=== PATIENT | female | born 1965 | race Caucasian/White ===

== ENCOUNTER 2019-06-24 13:17 | Outpatient (CLI) | payer OTHER, SELFPAY ==
[2019-06-24 14:58] LABS: Eosinophils Absolute Auto 0.1 K/mm3 (0-0.3); Eosinophils Percent Auto 2.4 % (0-4.4); Hematocrit 35.4 % (37.0-47.0); Hemoglobin 11.8 g/dL (12.0-15.0); Immature Granulocyte Absolute 0.02 K/mm3 (0.00-0.031); Immature Granulocyte Percent A 0.5 % (0-0.5); Lymphocytes Absolute Auto 1.31 K/mm3 (0.9-3.2); Lymphocytes Percent Auto 31.4 % (18.3-44.2); Mean Corpuscular HGB Conc 33.3 g/dl (32-36); Mean Corpuscular Hemoglobin 34.4 pg (26-34); Mean Corpuscular Volume 103.2 fl (80-100); Mean Platelet Volume 8.7 fl (7.4-10.4); Monocytes Absolute Auto 0.5 K/mm3 (0.1-0.6); Monocytes Percent Auto 10.8 % (2.6-8.5); Neutrophils Absolute Auto 2.3 K/mm3 (1.3-6.7); Neutrophils Percent Auto 53.9 % (45.5-73.1); Platelet Count Result 257 k/mm3 (150-375); Red Blood Count 3.43 M/mm3 (4.2-5.4); Red Cell Distribution Width 12.1 % (11.5-14.5); White Blood Count 4.2 K/mm3 (4.5-10.0)
[2019-06-24 15:11] LABS: Alanine Aminotransferase 17 U/L (4-35); Albumin Level 4.6 g/dL (3.5-5.1); Alkaline Phosphatase 49 U/L (38-126); Aspartate Amino Transferase 28 U/L (14-36); Bilirubin,Total 0.6 mg/dL (0.2-1.3); Blood Urea Nitrogen 10 mg/dL (7-17); Calcium 9.2 mg/dL (8.4-10.2); Carbon Dioxide 29 mmol/L (22-30); Chloride 96 mmol/L (98-107); Estimated Glomerular Filt Rate > 60; Glucose 83 mg/dL (65-105); Potassium 3.9 mmol/L (3.4-5.0); Sodium 135 mmol/L (137-145)
== END 2019-06-24 13:18 | disposition home or self-care (01) ==
DX: M32.9 Systemic lupus erythematosus, unspecified (principal); Z79.899 Other long term (current) drug therapy
CPT/HCPCS: 36415; 80053; 85025

== ENCOUNTER 2019-06-30 15:38 | Outpatient (CLI) | payer OTHER, SELFPAY ==
--- NOTE | ~2019-06-30 | MR_ITS ---
EXAMINATION: MR knee LT wo con DATE: 06/30/2019 16:42 INDICATION: Recently worsening chronic left knee pain and locking. TECHNIQUE: Magnetic resonance imaging (MRI) of the left knee was performed without intravenous contra st. Sequences included coronal PD-weighted FSE, coronal PD-weighted FS FSE, sagittal T2-weighted FSE , sagittal PD-weighted FS FSE and axial PD weighted fat saturated FSE. COMPARISON: None. FINDINGS: Medial compartment: Medial extrusion of the medial meniscal body. Mild increased intrasubstance signal at the junction of the body and posterior horn of the medial meniscus which does not contact the articular consistent w ith mucoid degeneration. No discrete meniscal tear identified. Partial-thickness cartilage loss with scattered mild chondral surface irregularity along the medial tibial plateau and anterior to central weightbearing medial femoral condyle. Small amount of subarticular edema along the anterior aspect of the articular surface of the intercondylar eminence. Small to moderate size marginal osteophytes are present. Lateral compartment: Lateral meniscus is normal. Partial-thickness cartilage loss with relatively smooth chondral surface along the lateral side of the posterior weightbearing lateral femoral condyle. Small marginal osteoph ytes are present. Patellofemoral compartment: Extensive full-thickness cartilage loss with remodeling and irregularity to the articular cortices al juliette with underlying subarticular edema and cystic change involving both the patella and trochlea, lat eral greater than medial. Marginal osteophytes, large along the medial trochlea. Ligaments and tendons: Anterior and posterior cruciate ligaments are normal. The medial collateral ligament and fibular jeanne ateral ligament complex are normal. The extensor mechanism is normal. The visualized medial and later al hamstring tendons as well as the iliotibial band are normal. Fluid: Small to moderate-sized knee joint effusion with scattered synovitis. There are several scattered lo ose osteochondral bodies the largest located at the cephalad aspect of the suprapatellar pouch which is only incompletely visualized but measures at least 1 cm. Additional smaller loose osteochondral debby dies are seen along the inferolateral margin of the patella, at the recesses posterior to the interco ndylar notch and posterior to the metaphysis near the insertion of the medial head of the gastrocnemi us. Osseous/other: No fracture or abnormal marrow replacing process. IMPRESSION: 1. 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 2. Medial extrusion and mild mucoid degeneration of the medial meniscus without discrete tear. Reviewed, dictated and finalized at location A. [employer] IMPRESSION: 1. 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 2. Medial extrusion and mild mucoid degeneration of the medial meniscus without discrete tear.
== END 2019-06-30 15:39 | disposition home or self-care (01) ==
PROVIDERS: Visit Provider Orthopaedic Surgery
DX: M25.562 Pain in left knee (principal); M17.12 Unilateral primary osteoarthritis, left knee
CPT/HCPCS: 73721

== ENCOUNTER 2019-07-01 15:16 | Outpatient (CLI) | payer OTHER, SELFPAY ==
--- NOTE | ~2019-07-01 | MM_ITS ---
EXAMINATION: MM screening jaleel BI w cristóbal HISTORY: Screening mammogram, family history of breast cancer in her mother. TECHNIQUE: Craniocaudal and mediolateral oblique 3-D tomosynthesis images were obtained and synthetic 2-D images were generated. CAD analysis was submitted and interpreted. COMPARISON: 05/13/2018, 04/27/2017, 03/31/2016 BREAST PARENCHYMAL COMPOSITION: The breasts are extremely dense, which lowers the sensitivity of mamm ography. FINDINGS: Scattered benign-appearing calcifications are present. There is no evidence of suspicious m ass, calcification, or architectural distortion to suggest malignancy in either breast. There has bee n no suspicious interval change. IMPRESSION: 1. No mammographic evidence of malignancy. 2. Recommend routine screening mammography in one year. BI-RADS Category 2: Benign finding(s). Reviewed, dictated and finalized at location A. SNIPPER
== END 2019-07-01 15:17 | disposition home or self-care (01) ==
DX: Z12.31 Encounter for screening mammogram for malignant neoplasm of breast (principal)
CPT/HCPCS: 77063; 77067

== ENCOUNTER 2019-10-14 14:29 | Outpatient (CLI) | payer OTHER, SELFPAY ==
[2019-10-14 15:10] LABS: Basophils Percent Auto 0.8 % (0.2-1.2); Eosinophils Absolute Auto 0.1 K/mm3 (0-0.3); Eosinophils Percent Auto 1.8 % (0-4.4); Hematocrit 35.8 % (37.0-47.0); Hemoglobin 11.8 g/dL (12.0-15.0); Immature Granulocyte Absolute 0.01 K/mm3 (0.00-0.031); Immature Granulocyte Percent A 0.3 % (0-0.5); Lymphocytes Absolute Auto 0.98 K/mm3 (0.9-3.2); Lymphocytes Percent Auto 25.9 % (18.3-44.2); Mean Corpuscular Hemoglobin 32.9 pg (26-34); Mean Corpuscular Volume 99.7 fl (80-100); Mean Platelet Volume 8.6 fl (7.4-10.4); Monocytes Absolute Auto 0.5 K/mm3 (0.1-0.6); Monocytes Percent Auto 12.1 % (2.6-8.5); Neutrophils Absolute Auto 2.2 K/mm3 (1.3-6.7); Neutrophils Percent Auto 59.1 % (45.5-73.1); Platelet Count Result 244 k/mm3 (150-375); Red Blood Count 3.59 M/mm3 (4.2-5.4); Red Cell Distribution Width 11.3 % (11.5-14.5); White Blood Count 3.8 K/mm3 (4.5-10.0)
[2019-10-14 15:20] LABS: Creatinine Urine 18.1 mg/dL
[2019-10-14 15:22] LABS: Add Urine Microscopic? YES; Appearance Urine Clear (Clear); Bacteria Urine Trace /hpf; Bilirubin Urine Negative (Negative); Blood Urine Negative (Negative); Color Urine Straw (Yellow); Glucose Urine UA Negative (Negative); Ketones Urine Negative (Negative); Leukocyte Esterase Ur Trace LEU/UL (Negative); Mucus Urine Rare /lpf; Nitrate Urine Negative (Negative); Protein Urine Negative (Negative); RBC Urine 0-2 /hpf (0-2); Specific Grav Ur 1.005 (1.001-1.035); Squamous Epithelial Cell Urine Occasional /hpf (Few); Urobilinogen Urine Negative mg/dL (<2.0); WBC Urine 0-3 /hpf
[2019-10-14 16:06] LABS: Total Protein Urine Random 13 mg/dL
[2019-10-14 16:07] LABS: Erythrocyte Sedimentation Rate 17 mm/hr (0-20)
[2019-10-14 16:51] LABS: Alanine Aminotransferase 16 U/L (4-35); Albumin Level 4.4 g/dL (3.5-5.1); Alkaline Phosphatase 51 U/L (38-126); Aspartate Amino Transferase 25 U/L (14-36); Bilirubin,Total 0.5 mg/dL (0.2-1.3); Blood Urea Nitrogen 9 mg/dL (7-17); CRP < 0.5 mg/dL (<1.0); Calcium 8.8 mg/dL (8.4-10.2); Carbon Dioxide 30 mmol/L (22-30); Chloride 102 mmol/L (98-107); Estimated Glomerular Filt Rate > 60; Glucose 75 mg/dL (65-105); Potassium 4.8 mmol/L (3.4-5.0); Sodium 137 mmol/L (137-145)
== END 2019-10-14 14:30 | disposition home or self-care (01) ==
PROVIDERS: Visit Provider Physician Assistant Medical
DX: M32.9 Systemic lupus erythematosus, unspecified (principal); Z79.899 Other long term (current) drug therapy; M79.10 Myalgia, unspecified site
CPT/HCPCS: 36415; 80053; 81001; 81002; 81050; 82570; 84156; 85025; 85652; 86140; 86225

== ENCOUNTER 2019-11-18 15:45 | Outpatient (CLI) | payer OTHER, SELFPAY ==
[2019-11-18 16:54] LABS: Basophils Percent Auto 0.9 % (0.2-1.2); Eosinophils Absolute Auto 0.1 K/mm3 (0-0.3); Hematocrit 34.6 % (37.0-47.0); Hemoglobin 11.5 g/dL (12.0-15.0); Immature Granulocyte Absolute 0.02 K/mm3 (0.00-0.031); Immature Granulocyte Percent A 0.5 % (0-0.5); Lymphocytes Absolute Auto 1.18 K/mm3 (0.9-3.2); Lymphocytes Percent Auto 26.6 % (18.3-44.2); Mean Corpuscular HGB Conc 33.2 g/dl (32-36); Mean Corpuscular Hemoglobin 32.7 pg (26-34); Mean Corpuscular Volume 98.3 fl (80-100); Mean Platelet Volume 8.4 fl (7.4-10.4); Monocytes Absolute Auto 0.5 K/mm3 (0.1-0.6); Monocytes Percent Auto 10.6 % (2.6-8.5); Neutrophils Absolute Auto 2.6 K/mm3 (1.3-6.7); Neutrophils Percent Auto 59.4 % (45.5-73.1); Platelet Count Result 223 k/mm3 (150-375); Red Blood Count 3.52 M/mm3 (4.2-5.4); Red Cell Distribution Width 11.4 % (11.5-14.5); White Blood Count 4.4 K/mm3 (4.5-10.0)
[2019-11-18 16:59] LABS: Creatinine Urine 9.9 mg/dL; Total Protein Urine Random 14 mg/dL
[2019-11-18 17:00] LABS: Add Urine Microscopic? YES; Appearance Urine Clear (Clear); Bacteria Urine Trace /hpf; Bilirubin Urine Negative (Negative); Blood Urine 1+ (Negative); Color Urine Colorless (Yellow); Glucose Urine UA Negative (Negative); Ketones Urine Negative (Negative); Leukocyte Esterase Ur 2+ LEU/UL (Negative); Nitrate Urine Negative (Negative); Protein Urine Negative (Negative); Squamous Epithelial Cell Urine Moderate /hpf (Few); Urobilinogen Urine Negative mg/dL (<2.0)
[2019-11-18 17:01] LABS: Specific Grav Ur 1.004 (1.001-1.035)
[2019-11-18 17:06] LABS: Alanine Aminotransferase 14 U/L (4-35); Albumin Level 4.4 g/dL (3.5-5.1); Alkaline Phosphatase 57 U/L (38-126); Aspartate Amino Transferase 25 U/L (14-36); Bilirubin,Total 0.3 mg/dL (0.2-1.3); Blood Urea Nitrogen 10 mg/dL (7-17); CRP < 0.5 mg/dL (<1.0); Calcium 8.5 mg/dL (8.4-10.2); Carbon Dioxide 27 mmol/L (22-30); Chloride 101 mmol/L (98-107); Estimated Glomerular Filt Rate > 60; Glucose 93 mg/dL (65-105); Sodium 134 mmol/L (137-145)
[2019-11-18 17:13] LABS: Complement C3 90 mg/dL (88-165)
[2019-11-18 17:31] LABS: Erythrocyte Sedimentation Rate 17 mm/hr (0-20)
== END 2019-11-18 15:46 | disposition home or self-care (01) ==
LOC: ANHLAB 15:49
PROVIDERS: Visit Provider Physician Assistant Medical
DX: M32.9 Systemic lupus erythematosus, unspecified (principal); Z79.899 Other long term (current) drug therapy
CPT/HCPCS: 36415; 80053; 81001; 82570; 84156; 85025; 85652; 86140; 86160; 86225; 87077; 87086; 87088

== ENCOUNTER 2020-02-13 11:50 | Outpatient (CLI) | payer OTHER, SELFPAY ==
[2020-02-13 12:42] LABS: Basophils Percent Auto 0.6 % (0.2-1.2); Eosinophils Absolute Auto 0.1 K/mm3 (0-0.3); Eosinophils Percent Auto 1.8 % (0-4.4); Hemoglobin 11.7 g/dL (12.0-15.0); Immature Granulocyte Absolute 0.02 K/mm3 (0.00-0.031); Immature Granulocyte Percent A 0.4 % (0-0.5); Lymphocytes Absolute Auto 1.29 K/mm3 (0.9-3.2); Lymphocytes Percent Auto 25.3 % (18.3-44.2); Mean Corpuscular HGB Conc 33.4 g/dl (32-36); Mean Corpuscular Hemoglobin 33.1 pg (26-34); Mean Corpuscular Volume 98.9 fl (80-100); Mean Platelet Volume 8.4 fl (7.4-10.4); Monocytes Absolute Auto 0.5 K/mm3 (0.1-0.6); Monocytes Percent Auto 9.4 % (2.6-8.5); Neutrophils Absolute Auto 3.2 K/mm3 (1.3-6.7); Neutrophils Percent Auto 62.5 % (45.5-73.1); Platelet Count Result 245 k/mm3 (150-375); Red Blood Count 3.54 M/mm3 (4.2-5.4); Red Cell Distribution Width 12.5 % (11.5-14.5); White Blood Count 5.1 K/mm3 (4.5-10.0)
[2020-02-13 12:47] LABS: Cholesterol 200 mg/dL (0-200); HDL Direct 58 mg/dL; Triglycerides 134 mg/dL (<150)
[2020-02-13 12:50] LABS: Alanine Aminotransferase 14 U/L (4-35); Albumin Level 4.2 g/dL (3.5-5.1); Alkaline Phosphatase 57 U/L (38-126); Anion Gap 5 mmol/L (8-16); Aspartate Amino Transferase 24 U/L (14-36); Bilirubin,Total 0.6 mg/dL (0.2-1.3); Blood Urea Nitrogen 9 mg/dL (7-17); CRP < 0.5 mg/dL (<1.0); Calcium 8.9 mg/dL (8.4-10.2); Carbon Dioxide 28 mmol/L (22-30); Chloride 100 mmol/L (98-107); Creatine Kinase 83 U/L (30-135); Estimated Glomerular Filt Rate > 60; Glucose 92 mg/dL (65-105); Potassium 4.1 mmol/L (3.4-5.0); Sodium 133 mmol/L (137-145)
[2020-02-13 12:53] LABS: Complement C3 93 mg/dL (88-165)
[2020-02-13 12:55] LABS: Add Urine Microscopic? YES; Appearance Urine Clear (Clear); Bilirubin Urine Negative (Negative); Blood Urine Negative (Negative); Color Urine Colorless (Yellow); Glucose Urine UA Negative (Negative); Ketones Urine Negative (Negative); Leukocyte Esterase Ur 1+ LEU/UL (Negative); Nitrate Urine Negative (Negative); Protein Urine Negative (Negative); RBC Urine 0-2 /hpf (0-2); Squamous Epithelial Cell Urine Few /hpf (Few); Transitional Epi Cells Urine Rare /hpf (None Seen); Urobilinogen Urine Negative mg/dL (<2.0); WBC Urine 0-3 /hpf
[2020-02-13 12:58] LABS: LDL Cholesterol Direct 101 mg/dL
[2020-02-13 12:59] LABS: Specific Grav Ur 1.004 (1.001-1.035)
[2020-02-13 13:36] LABS: Thyroid Stimulating Hormone Reflex 0.945 uIU/mL (0.465-4.68)
[2020-02-13 13:52] LABS: Erythrocyte Sedimentation Rate 18 mm/hr (0-20)
[2020-02-13 15:14] LABS: Creatinine Urine 19.1 mg/dL; Total Protein Urine Random 13 mg/dL
[2020-02-18 01:37] LABS: Aldolase 3.4 U/L (<=8.1)
== END 2020-02-13 11:51 | disposition home or self-care (01) ==
LOC: ANHLAB 11:54
PROVIDERS: Visit Provider Internal Medicine
DX: M32.9 Systemic lupus erythematosus, unspecified (principal); M35.00 Sjogren syndrome, unspecified; M79.7 Fibromyalgia; Z79.899 Other long term (current) drug therapy; L85.3 Xerosis cutis
CPT/HCPCS: 36415; 80053; 80061; 81001; 82085; 82550; 82570; 84156; 84443; 85025; 85652; 86140; 86160; 86225

== ENCOUNTER 2020-04-18 13:49 | Outpatient (CLI) | payer OTHER, SELFPAY ==
[2020-04-18 15:09] LABS: Add Urine Microscopic? YES; Appearance Urine Cloudy (Clear); Bacteria Urine 1+ /hpf; Bilirubin Urine Negative (Negative); Blood Urine 2+ (Negative); Color Urine Yellow (Yellow); Glucose Urine UA Negative (Negative); Ketones Urine Negative (Negative); Leukocyte Esterase Ur 3+ LEU/UL (NEGATIVE); Mucus Urine Rare /lpf; Nitrate Urine Negative (Negative); Protein Urine Negative (Negative); Specific Grav Ur 1.005 (1.001-1.035); Squamous Epithelial Cell Urine Few /hpf (Few); Urobilinogen Urine Negative mg/dL (<2.0); WBC Urine >75 /hpf (0-3)
== END 2020-04-18 13:50 | disposition home or self-care (01) ==
PROVIDERS: Visit Provider Physician Assistant
DX: R30.0 Dysuria (principal)
CPT/HCPCS: 81001; 87086

== ENCOUNTER 2020-05-10 16:44 | Outpatient (CLI) | payer OTHER, SELFPAY ==
[2020-05-10 17:33] LABS: Basophils Absolute Auto 0.1 K/mm3 (0.0-0.1); Eosinophils Absolute Auto 0.1 K/mm3 (0-0.3); Eosinophils Percent Auto 2.3 % (0-4.4); Hematocrit 39.2 % (37.0-47.0); Hemoglobin 13.2 g/dL (12.0-15.0); Immature Granulocyte Absolute 0.02 K/mm3 (0.00-0.031); Immature Granulocyte Percent A 0.4 % (0-0.5); Lymphocytes Absolute Auto 1.34 K/mm3 (0.9-3.2); Lymphocytes Percent Auto 25.8 % (18.3-44.2); Mean Corpuscular HGB Conc 33.7 g/dl (32-36); Mean Corpuscular Hemoglobin 34.2 pg (26-34); Mean Corpuscular Volume 101.6 fl (80-100); Mean Platelet Volume 8.3 fl (7.4-10.4); Monocytes Absolute Auto 0.6 K/mm3 (0.1-0.6); Neutrophils Absolute Auto 3.1 K/mm3 (1.3-6.7); Neutrophils Percent Auto 59.5 % (45.5-73.1); Platelet Count Result 252 k/mm3 (150-375); Red Blood Count 3.86 M/mm3 (4.2-5.4); Red Cell Distribution Width 11.7 % (11.5-14.5); White Blood Count 5.2 K/mm3 (4.5-10.0)
[2020-05-10 17:36] LABS: Add Urine Microscopic? YES; Appearance Urine Clear (Clear); Bacteria Urine Trace /hpf; Bilirubin Urine Negative (Negative); Blood Urine 1+ (Negative); Color Urine Colorless (Yellow); Glucose Urine UA Negative (Negative); Ketones Urine Negative (Negative); Leukocyte Esterase Ur 1+ LEU/UL (Negative); Mucus Urine Rare /lpf; Nitrate Urine Negative (Negative); Protein Urine Negative (Negative); RBC Urine 0-2 /hpf (0-2); Squamous Epithelial Cell Urine Rare /hpf (Few); Urobilinogen Urine Negative mg/dL (<2.0)
[2020-05-10 17:48] LABS: Specific Grav Ur 1.004 (1.001-1.035)
[2020-05-10 17:48] LABS: Alanine Aminotransferase 18 U/L (4-35); Albumin Level 4.9 g/dL (3.5-5.1); Alkaline Phosphatase 62 U/L (38-126); Anion Gap 9 mmol/L (8-16); Aspartate Amino Transferase 31 U/L (14-36); Bilirubin,Total 0.5 mg/dL (0.2-1.3); Blood Urea Nitrogen 12 mg/dL (7-17); CRP 0.7 mg/dL (<1.0); Calcium 9.6 mg/dL (8.4-10.2); Carbon Dioxide 31 mmol/L (22-30); Chloride 99 mmol/L (98-107); Estimated Glomerular Filt Rate > 60; Glucose 92 mg/dL (65-105); Potassium 3.7 mmol/L (3.4-5.0); Sodium 139 mmol/L (137-145)
[2020-05-10 17:52] LABS: Complement C3 101 mg/dL (88-165)
[2020-05-10 17:54] LABS: Creatinine Urine 14.3 mg/dL; Total Protein Urine Random 13 mg/dL; Ur Ttl Prot Creatinine Ratio 0.91 mg/mg (0-0.20)
[2020-05-10 18:01] LABS: Erythrocyte Sedimentation Rate 14 mm/hr (0-20)
== END 2020-05-10 16:45 | disposition home or self-care (01) ==
LOC: ANHLAB 16:48
PROVIDERS: Visit Provider Physician Assistant Medical
DX: M32.9 Systemic lupus erythematosus, unspecified (principal); Z79.899 Other long term (current) drug therapy
CPT/HCPCS: 36415; 80053; 81001; 82570; 84156; 85025; 85652; 86140; 86160; 86225; 87086

== ENCOUNTER 2020-08-08 16:21 | Outpatient (CLI) | payer BC, SELFPAY ==
--- NOTE | ~2020-08-08 | MM_ITS ---
EXAMINATION: MM screening jaleel BI w cristóbal HISTORY: Screening TECHNIQUE: Craniocaudal and mediolateral oblique 3-D tomosynthesis images were obtained and synthetic 2-D images were generated. CAD analysis was submitted and interpreted. COMPARISON: Comparison to multiple prior studies sequentially, with oldest reviewed study dated 01/2014. BREAST PARENCHYMAL COMPOSITION: The breasts are extremely dense, which lowers the sensitivity of mamm ography. FINDINGS: There are developing asymmetries of the right breast centrally and superiorly on the MLO vi ew. The left breast is stable without evidence for malignancy. IMPRESSION: 1. Developing right breast asymmetries on MLO view. 2. Additional mammographic views and possible breast ultrasound are recommended. BI-RADS Category 0: Incomplete: Needs additional imaging evaluation. Reviewed, dictated and finalized at location A. IMPRESSION: 1. Developing right breast asymmetries on MLO view. 2. Additional mammographic views and possible breast ultrasound are recommended . BI-RADS Category 0: Incomplete: Needs additional imaging evaluation.
== END 2020-08-08 16:22 | disposition home or self-care (01) ==
LOC: ANHIMG 16:28
DX: Z12.31 Encounter for screening mammogram for malignant neoplasm of breast (principal); R92.8 Other abnormal and inconclusive findings on diagnostic imaging of breast
CPT/HCPCS: 77063; 77067

== ENCOUNTER 2020-09-06 13:26 | Outpatient (CLI) | payer BC, SELFPAY ==
--- NOTE | ~2020-09-06 | MM_ITS ---
EXAMINATION: MM diagnostic mammo unilat RT HISTORY: Follow-up breast asymmetries TECHNIQUE: Additional 3-D tomosynthesis images of the right breast were performed and synthetic 2-D i mages were generated. CAD analysis was submitted and interpreted. High resolution complete right dejon st ultrasound was performed. COMPARISON: 08/08/2020 BREAST PARENCHYMAL COMPOSITION: The breasts are extremely dense, which lowers the sensitivity of mamm ography. FINDINGS: MAMMOGRAPHIC FINDINGS: There are no suspicious masses, calcifications or architectural distortion in the right breast to sug gest malignancy. ULTRASOUND: Complete right breast ultrasound including all 4 quadrants: At 12:00, 3 cm from the nipple, there is a 6 mm cyst. At 7:00, 3 cm from the nipple, there is an 11 mm cyst. No suspicious masses to suggest m alignancy. IMPRESSION: 1. No mammographic evidence for malignancy in the right breast. Benign cysts. 2. Routine yearly screening mammogram and regular clinical breast examination are recommended. BI-RADS Category 2: Benign finding(s). Reviewed, dictated and finalized at location A. IMPRESSION: 1. No mammographic evidence for malignancy in the right breast. Benign cysts. 2. Routine yearly screening mammogram and regular clinical breast examination a re recommended. BI-RADS Category 2: Benign finding(s).
--- NOTE | ~2020-09-06 | US_ITS ---
Please refer to diagnostic mammogram report dated 09/06/2020 for details. Reviewed, dictated and finalized at location A.
== END 2020-09-06 13:27 | disposition home or self-care (01) ==
DX: R92.2 Inconclusive mammogram (principal)
CPT/HCPCS: 76641; 77065

== ENCOUNTER → 2021-01-08 11:25 | Outpatient (CLI) | payer BC, SELFPAY ==
--- NOTE | ~2021-01-08 | CT_ITS ---
EXAMINATION: CT abdomen pelvis wo/w con DATE: 01/08/2021 12:12 INDICATION: Gross hematuria TECHNIQUE: Computed tomography (CT) of the abdomen and pelvis was performed without intravenous contr ast in supine position. CT of the abdomen and pelvis was then performed in prone position with a tota l of 130 mL Omnipaque-350 intravenous contrast using a double-bolus technique for simultaneous opacif ication of the renal parenchyma and renal collecting system. Automated exposure control and iterative reconstruction technique were employed. The dose-length product was 1239.35 mGy-cm. COMPARISON: 08/06/2018 FINDINGS: Calcified left lower lobe nodules consistent with old granulomatous disease. Heart size is normal. No pericardial or pleural effusion. Unchanged 5 mm hypodense lesion in the right hepatic lobe favoring a benign etiology either cyst or hemangioma. Cholecystectomy clips at the gallbladder fossa. Spleen, pancreas and bilateral adrenal glands are normal. Bilateral kidneys are normal with symmetric renal p arenchymal enhancement and no urolithiasis or hydronephrosis. The proximal two thirds of the ureters are opacified with excreted contrast and demonstrate no urothelial irregularities. The distal thirds of both ureters are decompressed with no evident ureteral stones. Bladder is normal. Anteverted uteru s and bilateral adnexa are unremarkable. Bowels including the appendix are normal. No free intraperit neal gas or fluid. No pathologically enlarged abdominal or pelvic lymphadenopathy. Mild lumbar spond ylosis. IMPRESSION: 1. Normal kidneys and ureters with no urolithiasis. Reviewed, dictated and finalized at location A.
[2021-01-08 11:48] LABS: Estimated Glomerular Filt Rate > 60
== END ==
PROVIDERS: PCP Internal Medicine
DX: R31.0 Gross hematuria (principal)
CPT/HCPCS: 74178; Q9967

== ENCOUNTER 2021-03-07 11:21 | Outpatient (CLI) | payer BC, SELFPAY ==
--- NOTE | ~2021-03-07 | MMUS_ITS ---
EXAMINATION: MM diagnostic jaleel RT w cristóbal, US breast RT complete HISTORY: Palpable right breast abnormality TECHNIQUE: Additional 3-D tomosynthesis images of the right breast were performed and synthetic 2-D i mages were generated. CAD analysis was submitted and interpreted. High resolution complete right dejon st ultrasound was performed. COMPARISON: Comparison to multiple prior studies sequentially, with oldest reviewed study dated 11/2015. BREAST PARENCHYMAL COMPOSITION: The breasts are extremely dense, which lowers the sensitivity of mamm ography FINDINGS: MAMMOGRAPHIC FINDINGS: There are no suspicious masses, calcifications or architectural distortion in the right breast to sug gest malignancy. ULTRASOUND: Complete bilateral US of all 4 quadrants of the breasts and retroareolar region was reviewed. At 12:0 0, 3 cm from the nipple there is a 5 mm cyst. At 9:00, 5 cm from the nipple there is a 1.2 cm cyst. N o suspicious masses to suggest malignancy. IMPRESSION: 1. No evidence for malignancy in the right breast. 2. Routine yearly screening mammogram and regular clinical breast examination are recommended. BI-RADS Category 2: Benign finding(s). Reviewed, dictated and finalized at location A. IMPRESSION: 1. No evidence for malignancy in the right breast. 2. Routine yearly screening mammogram and regular clinical breast examination a re recommended. BI-RADS Category 2: Benign finding(s).
== END 2021-03-07 11:22 | disposition home or self-care (01) ==
LOC: ANHIMG 11:31
PROVIDERS: PCP Internal Medicine
DX: N63.10 Unspecified lump in the right breast, unspecified quadrant (principal)
CPT/HCPCS: 76641; 77061; 77065; G0279

== ENCOUNTER 2021-08-27 16:53 | Outpatient (CLI) | payer BC, SELFPAY ==
--- NOTE | ~2021-08-27 | DEXA_ITS ---
Bone Density Report Name: KAITY ANDERSON Age: 56 Sex: Female Ethnicity: White Date of : 1965 Indication: postmenopausal; height loss; Referring Provider: UNKNOWN, UNKNOWN Study: Bone densitometry was performed. Exam Date: August 27, 2021 Accession number: [id number] Bone Density: Region BMD T-score Z-score Classification AP Spine (L1-L4) 1.264 2.0 3.2 Normal Femoral Neck (Left) 1.075 2.0 3.2 Normal Total Hip (Left) 1.167 1.8 2.6 Normal Total Hip Bilateral Avg 1.177 1.9 2.7 Normal Femoral Neck (Right) 1.126 2.5 3.7 Normal Total Hip (Right) 1.185 2.0 2.8 Normal World Health Organization criteria for BMD impression classify patients as: Normal (T-score at or above -1.0), Osteopenia (T-score between -1.0 and -2.5), or Osteoporosis (T-score at or below -2.5). 10-year Fracture Risk: FRAX not reported because: All T-scores for Spine Total, Hip Total, Femoral Neck at or above -1.0 Clinical Information Provided by Patient: Patient maximum height was 68.5 Menopause Age: 53 No regular weight bearing exercise Onset of menses at age 14 Number of children 2 Impression: The patient has normal bone mass. Discussion: LOW RISK OF FRACTURE; BONE DENSITY IS WELL ABOVE THE MINIMUM DESIRABLE LEVEL AND ABOVE AVERAGE FOR AGE AND SEX AT ALL SKELETAL SITES TESTED. This person's bone density is above expected limits for age and sex. This is rarely clinically significant, but should be pursued if there are significant musculoskeletal complaints. The patient should follow a healthful lifestyle (good nutrition with adequate calcium and vitamin D, and appropriate weight-bearing exercise). Follow-Up: Consider repeating this study in 5 years or sooner if there is some new clinical indication. Reported by: KEHINDE on 08/27/2021 5:37:00 PM. Reviewed, dictated and finalized at location A. [facility]
== END 2021-08-27 16:54 | disposition home or self-care (01) ==
PROVIDERS: PCP Internal Medicine
DX: Z13.820 Encounter for screening for osteoporosis (principal); Z78.0 Asymptomatic menopausal state
CPT/HCPCS: 77080

== ENCOUNTER 2021-10-09 12:17 | Outpatient (CLI) | payer BC, SELFPAY ==
--- NOTE | ~2021-10-09 | MM_ITS ---
EXAMINATION: MM screening jaleel BI w cristóbal HISTORY: Screening mammogram, family history of breast cancer in her mother. TECHNIQUE: Craniocaudal and mediolateral oblique 3-D tomosynthesis images were obtained and synthetic 2-D images were generated. CAD analysis was submitted and interpreted. COMPARISON: 03/07/2021, 09/06/2020, 08/08/2020, 07/01/2019, 05/13/2018 BREAST PARENCHYMAL COMPOSITION: The breasts are extremely dense, which lowers the sensitivity of mamm ography. FINDINGS: Scattered benign-appearing calcifications are present. There is no suspicious mass, calcifi cation, or architectural distortion to suggest malignancy in either breast. There has been no suspici ous interval change. IMPRESSION: 1. No mammographic evidence of malignancy. 2. Recommend routine screening mammography in one year. BI-RADS Category 2: Benign finding(s). Reviewed, dictated and finalized at location A.
--- NOTE | ~2021-10-09 | US_ITS ---
EXAMINATION: US breast BI complete HISTORY: Calculated high risk for family history of breast cancer TECHNIQUE: Complete bilateral breast ultrasound is performed including all four quadrants and the sub areolar breasts. COMPARISON: 03/07/2021, 09/06/2020 TISSUE COMPOSITION: Heterogeneous background echotexture FINDINGS: Right breast: There is a stable 10 mm x 5 mm cyst at the 9:00 location 5 cm from the nipple. There is a 3 mm cyst at the 12:00 location 3 cm from the nipple with interval decrease in size. No suspicious right breast mass is identified. Left breast: No suspicious cystic or solid mass is identified. IMPRESSION: Benign sonographically detected right breast masses with no sonographic evidence of malignancy. BI-RADS Category 2: Benign finding(s). Reviewed, dictated and finalized at location A. IMPRESSION: Benign sonographically detected right breast masses with no sonographic evidenc e of malignancy. BI-RADS Category 2: Benign finding(s).
== END 2021-10-09 12:18 | disposition home or self-care (01) ==
LOC: ANHIMG 12:18
PROVIDERS: PCP Internal Medicine
DX: Z12.31 Encounter for screening mammogram for malignant neoplasm of breast (principal); Z80.3 Family history of malignant neoplasm of breast; N60.01 Solitary cyst of right breast
CPT/HCPCS: 76641; 77063; 77067

== ENCOUNTER 2021-10-29 11:59 | Outpatient (CLI) | payer BC, SELFPAY ==
--- NOTE | 2021-10-29 13:02 | ECG_ITS ---
Measurements Intervals [place] Rate: 71 P: 50 GA: 144 QRS: 67 QRSD: 86 T: 71 QT: 362 QTc: 393 Interpretive Statements SINUS RHYTHM NORMAL ECG NO PREVIOUS ECG AVAILABLE FOR COMPARISON Electronically Signed On 10-30-2021 7:18:28 CDT by Israel Osman M.D.
[2021-10-29 13:51] LABS: Basophils Percent Auto 1.2 % (0.2-1.2); Eosinophils Absolute Auto 0.1 K/mm3 (0-0.3); Eosinophils Percent Auto 4.2 % (0-4.4); Hematocrit 35.3 % (37.0-47.0); Hemoglobin 11.8 g/dL (12.0-15.0); Immature Granulocyte Absolute 0.02 K/mm3 (0.00-0.031); Immature Granulocyte Percent A 0.6 % (0-0.5); Lymphocytes Absolute Auto 0.89 K/mm3 (0.9-3.2); Lymphocytes Percent Auto 26.7 % (18.3-44.2); Mean Corpuscular HGB Conc 33.4 g/dl (32-36); Mean Corpuscular Volume 98.6 fl (80-100); Mean Platelet Volume 8.5 fl (7.4-10.4); Monocytes Absolute Auto 0.6 K/mm3 (0.1-0.6); Monocytes Percent Auto 16.5 % (2.6-8.5); Neutrophils Absolute Auto 1.7 K/mm3 (1.3-6.7); Neutrophils Percent Auto 50.8 % (45.5-73.1); Platelet Count Result 233 k/mm3 (150-375); Red Blood Count 3.58 M/mm3 (4.2-5.4); Red Cell Distribution Width 11.9 % (11.5-14.5); White Blood Count 3.3 K/mm3 (4.5-10.0)
[2021-10-29 13:53] LABS: Prothrombin Time 12.8 Seconds (11.1-14.7)
[2021-10-29 13:54] LABS: Albumin Level 4.6 g/dL (3.5-5.1); Anion Gap 6 mmol/L (8-16); Blood Urea Nitrogen 6 mg/dL (7-17); Calcium 9.7 mg/dL (8.4-10.2); Carbon Dioxide 32 mmol/L (22-30); Chloride 101 mmol/L (98-107); Estimated Glomerular Filt Rate > 60; Glucose 93 mg/dL (65-110); Partial Thromboplastin Time 30.6 SECONDS (22.3-36.8); Sodium 139 mmol/L (137-145)
[2021-10-29 13:55] LABS: Hemoglobin A1C 4.5 % (<5.7)
[2021-10-29 13:57] LABS: Urine Cotinine NEGATIVE
== END 2021-10-29 12:00 | disposition home or self-care (01) ==
PROVIDERS: Anesthesiology; PCP Internal Medicine; Visit Provider Orthopaedic Surgery
DX: K75.4 Autoimmune hepatitis (principal); G89.29 Other chronic pain; M25.561 Pain in right knee; M25.562 Pain in left knee; Z01.818 Encounter for other preprocedural examination
CPT/HCPCS: 80048; 80307; 82040; 83036; 85025; 85610; 85730; 87070; 93005

== ENCOUNTER 2021-11-20 02:00 | Day surgery (SDC) | payer BC, SELFPAY ==
--- NOTE | 2021-10-29 11:48 | PC.NURSE ---
Report to the Outpatient Waiting Room, entrance under the green pavilion located off [facility], at time _1000_ on date _11/20/21_. OR Time: _1200_. - You and your visitor will be asked a series of questions to screen for COVID 19 for your protection. - Only one visitor is allowed at this time. - The patient visitor is requested to leave or wait in car when not with patient. VISITING HOURS 10AM-8PM, USE MAIN HOSPITAL ENTRANCE - A mask is required within the hospital. Patients may have clear liquids (water, carbonated beverages, clear teas, apple juice) until 3 hours prior to surgery (900 AM) with a maximum of 20 ounces. - No food from midnight until time of surgery Take the following medications with a SIP of water the morning of surgery: _MYCOPHENOLATE, PROPRANOLOL,_ Medications to discontinue per DR. REYES - DICLOFENAC 7 DAYS PRIOR TO SURGERY, Date to take last dose 11/12/21_ *PT STATES WILL BE STOPPING BENLYSTA 2 WEEKS PRIOR TO SURGERY AND OTEZLA 1 WEEK PRIOR TO SURGERY* Please no make-up, nail arabic, hairspray, perfume, deodorant, or body powder the day of surgery. No jewelry (including any body piercings) or valuables the day of surgery, leave them at home. Please take a shower or bath the night before, or the morning of, surgery with an antibacterial soap. Wear comfortable, loose fitting clothing. Children are encouraged to wear pajamas. - Jewelry must be removed prior to entering the operating room. Rings and piercings that are not removed may be cut off. - The hospital will not accept responsibility for valuables. - Please leave all valuables, including medications, at home the day of surgery. If you are going home after surgery, a licensed miniature train driver must drive you home. - NO public transportation without another adult. - We recommend that an adult stay with you for 24 hours following discharge. - We also recommend that you do not drive, make important decision, drink alcoholic beverages, or take any drugs that were not prescribed by your health care provider for at least 24 hours after your discharge time. Follow any additional instructions given to you from DR. REYES. TOTAL JOINT CLASS [facility] 11/06/21 @ 1000AM, USE MAIN ENTRANCE, LOWER LEVEL If you or anyone in your household have experienced Covid symptoms in the past week, please notify your surgeon or the nurse liaison at the phone number below for possible testing. Instructions given to _PT__and asked if any additional questions and then verbalized understanding. Patient advised to call surgeon office or pre surgery nurse liaison [phone] if any additional questions.
[2021-10-29 12:29] VITALS: BP 134/72; PULSE 76; RESP 18; TEMP 36.8; O2SAT 100; BMI 21.7
[2021-11-20] VITALS (14 sets, daily range): BP systolic 105–142; BP diastolic 72–89; PULSE 71–88; RESP 12–21; TEMP 36.4–36.9; O2SAT 97–100
--- NOTE | ~2021-11-20 | XR_ITS ---
EXAMINATION: XR knee RT 2V DATE: 11/20/2021 16:13 INDICATION: Right total knee arthroplasty placement TECHNIQUE: Portable AP and crosstable lateral views of the right knee were obtained.. COMPARISON: 05/29/2015 FINDINGS: Interval placement of a right total knee arthroplasty with patellar resurfacing which appears well se ated in near-anatomic alignment. No fracture. Expected postoperative soft tissue and intra-articular gas. 1 cm calcific lesion with irregular margins posterior to the knee likely representing an osteoch ondral body within a Nix's cyst. IMPRESSION: 1. Right total knee arthroplasty negative for postoperative purposes. Reviewed, dictated and finalized at location A.
--- NOTE | 2021-11-20 08:32 | PM.IMHP ---
H&P: HPI History of Present Illness Date/Time: 11/20/21 08:32 Chief Complaint: Bilateral knee DJD Narrative: 56-year-old female patient of Dr. Bruno who presents today for a right total knee arthroplasty and cortisone injection into the left knee. Patient has been having symptoms of pain in both knees for a long time. She has severe medial compartment osteoarthritis and moderate patellofemoral arthritis in both knees. She has had cortisone injections last 1 being in June of this year. She had limited relief from it. She takes Tylenol as well as diclofenac on a regular basis. She is also on rheumatoid medications. Nonsurgical treatment is not improving her symptoms at this point. She is fairly miserable on a daily basis and feels she is ready to proceed with total knee arthroplasty on the right knee. Review of Systems Review of Systems: All systems reviewed & are unremarkable except as noted in HPI and below PMFSH Past Medical History Medical History Lichen planus Surgical History Surgical History Hx of BSO (bilateral salpingo-oophorectomy) (~12/2018) Family History Family History Father Family history of diabetes mellitus in first degree relative Patient's father is Mother Family history of malignant neoplasm of breast in first degree relative Family history of osteoarthritis Social History Social History Smoking status: Never smoker Second hand tobacco smoke exposure: No Additional smoking assessment comments: PT DENIES ALL FORMS OF TOBACCO USE Alcohol intake: current Alcohol use details: STATES 2 DRINKS/MONTH Substance use: never Substance use type: does not use Living arrangements: with family Spiritual care concerns: No Meds Home Medications and Allergies Home Medications Medication Instructions Recorded Confirmed Type belimumab 200 mg/mL subcutaneous 200 mg subcut WEEKLY 05/04/19 10/29/21 History auto-injector (Benlysta) hydroxychloroquine 200 mg tablet 200 mg PO BID 05/04/19 11/20/21 History (Plaquenil) propranolol 20 mg tablet 20 mg PO Q12H 05/04/19 11/20/21 History mycophenolate mofetil 500 mg 1,500 mg PO Q12H 12/05/19 11/20/21 History tablet (CellCept) cyclobenzaprine 10 mg tablet See Rx Instructions .Route 12/30/19 11/20/21 Rx .COMPLEX #90 tabs diclofenac sodium 75 mg 75 mg PO BID #60 tabs 09/02/21 11/20/21 Rx tablet,delayed release acetaminophen 650 mg 1,300 mg PO Q12H 10/29/21 11/20/21 History tablet,extended release apremilast 30 mg tablet (Otezla) 30 mg PO BID 10/29/21 11/20/21 History celecoxib 200 mg capsule (Celebrex) 200 mg PO BID 10/29/21 11/20/21 History amitriptyline 10 mg tablet 20 mg PO .QHS #180 tabs 11/01/21 Rx Allergies Allergy/AdvReac Type Severity Reaction Status Date / Time No Known Allergies Allergy Verified 11/20/21 11:42 Exam Narrative: 56-year-old female alert pleasant. She is 5 ft 7 and 143 lb. Right knee range of motion is from 3-150 degrees. She has moderately large popliteal cyst palpable. Normal AP and mediolateral stability. Moderate medial joint line tenderness and moderate pain with patellofemoral grind. Hip range of motion is full without discomfort. Negative Stinchfield maneuver. Normal quad strength. Moderate effusion in the knee itself. No edema in lower extremities. 2+ dorsalis pedis and posterior artery pulse palpable. Normal sensation right lower extremity. Resp: Auscultation: clear to auscultation bilaterally Cardio: Rate: regular rate Rhythm: regular rhythm Assessment and Plan Assessment and plan (1) Degenerative arthritis of knee, bilateral: Code(s): M17.0 - Bilateral primary osteoarthritis of knee Status: Acute Plan 56-year
[2021-11-20] MEDS: ACETAMINOPHEN 500 MG TABLET 1000 MG PO (10:33)
[2021-11-20] MEDS: LACTATED RINGERS 1,000 ML 30 ML IV CONT ×3 (10:44→16:10)
[2021-11-20] MEDS: TRANEXAMIC ACID 1,000MG/ISO100 1,000 MG/100 ML BAG 200 MG IVPB (10:45)
--- NOTE | 2021-11-20 10:50 | WPDANESEPPF ---
Anes - Initial Pre Proc Eval Procedure: Operation Date: 11/20/21 12:00 Proposed Procedures p Right Total Knee Arthroplasty, Cortisone Injection Left Knee - Brodie Yañez MD Date/Time: 11/20/21 10:50 Surgeon: Brodie Yañez MD Pre Op Diagnosis: inflammatory and OA bilat knees Patient Data Age: 56 Gender: F Height: 1.74 m Weight: 65.7 kg Last Vital Signs Temp 36.8 C 10/29/21 12:29 Pulse 76 10/29/21 12:29 Resp 18 10/29/21 12:29 BP 134/72 10/29/21 12:29 Pulse Ox 100 10/29/21 12:29 O2 Del Method Room Air 10/29/21 12:29 Allergies Allergy/AdvReac Type Severity Reaction Status Date / Time No Known Allergies Allergy Verified 11/20/21 10:32 Home Medications Medication Instructions Recorded Confirmed Type belimumab 200 mg/mL subcutaneous 200 mg subcut WEEKLY 05/04/19 10/29/21 History auto-injector (Benlysta) hydroxychloroquine 200 mg tablet 200 mg PO BID 05/04/19 11/20/21 History (Plaquenil) propranolol 20 mg tablet 20 mg PO Q12H 05/04/19 11/20/21 History mycophenolate mofetil 500 mg 1,500 mg PO Q12H 12/05/19 11/20/21 History tablet (CellCept) cyclobenzaprine 10 mg tablet See Rx Instructions .Route 12/30/19 11/20/21 Rx .COMPLEX #90 tabs diclofenac sodium 75 mg 75 mg PO BID #60 tabs 09/02/21 11/20/21 Rx tablet,delayed release acetaminophen 650 mg 1,300 mg PO Q12H 10/29/21 11/20/21 History tablet,extended release apremilast 30 mg tablet (Otezla) 30 mg PO BID 10/29/21 11/20/21 History celecoxib 200 mg capsule (Celebrex) 200 mg PO BID 10/29/21 11/20/21 History amitriptyline 10 mg tablet 20 mg PO .QHS #180 tabs 11/01/21 Rx Patient hx anesthesia problems: none Family hx anesthesia problems: none Results Review: All pre-operative results and documents have been reviewed as part of the pre-operative evaluation. [facility] Past Medical History Medical History Lichen planus Surgical History Surgical History Hx of BSO (bilateral salpingo-oophorectomy) (~12/2018) Family History Family History Father Family history of diabetes mellitus in first degree relative Patient's father is Mother Family history of malignant neoplasm of breast in first degree relative Family history of osteoarthritis Social History Social History Smoking status: Never smoker Second hand tobacco smoke exposure: No Additional smoking assessment comments: PT DENIES ALL FORMS OF TOBACCO USE Alcohol intake: current Alcohol use details: STATES 2 DRINKS/MONTH Substance use: never Substance use type: does not use Living arrangements: with family Spiritual care concerns: No Anes - Eval Final PreProcedure Day of Procedure 11/20/21 10:50 Patient weight: normal Heart: regular rate and rhythm Lungs: clear to auscultation Airway: Mallampati scale class II Neurological: alert and oriented Last oral intake: >/= 8 hours ASA classification: II Emergent: no Anesthetic plan: proceed Anesthesia type and monitoring: general ETT and standard monitoring Results Review: All pre-operative results and documents have been reviewed as part of the pre-operative evaluation. Informed Consent: The patient's anesthetic plan and its attendant risks and benefits were discussed with the patient/family/POA. Questions were solicited and answers provided to the satisfaction of the patient/family/POA.
[2021-11-20 11:19] LABS: Hematocrit 39.4 % (37.0-47.0); Hemoglobin 12.7 g/dL (12.0-15.0)
--- NOTE | 2021-11-20 12:07 | WPDHPUPDATE1 ---
History and Physical Update Update Date/Time: 11/20/21 12:07 History and Physical has been reviewed, including an updated exam of the patient. There are NO changes in the patient's condition. Risks, benefits, and alternatives have been discussed and questions answered. Patient agrees to proceed with procedure.
[2021-11-20] MEDS: diphenhydrAMINE HCl INJ 50 MG/ML VIAL 25 MG IV PUSH (12:09)
[2021-11-20] MEDS: ceFAZolin 2 GM/D5W 50 ML 2 GM/50 ML BAG IVPB (12:21)
[2021-11-20] MEDS: methylPREDNISolone ACETATE 80 MG/ML VIAL IM (12:45)
[2021-11-20] MEDS: TRANEXAMIC ACID 1,000 MG/10 ML AMPUL 1000 MG IV PUSH (15:01)
[2021-11-20] MEDS: ceFAZolin SODIUM 1 GM VIAL IV PUSH (15:02)
[2021-11-20] MEDS: ceFAZolin SODIUM 1 GM VIAL 3 GM (15:07)
--- NOTE | 2021-11-20 15:39 | W.PM.PROC2 ---
Procedure Note - Detailed Date of Procedure 11/20/21 Pre-op Diagnosis inflammatory arthritis and OA bilat knees Post-op Diagnosis Same Procedure Performed Right total knee arthroplasty, cortisone injection left knee Surgeon Brodie Yañez MD [facility] [employer]ist Tan Marlow Description of Procedure Patient was brought to the operating room and general anesthesia was administered. She received 2 g of Ancef and 1 g of vancomycin preoperatively. She did develop significant redness in her face and neck after the vanco infusion. It was given slowly at the appropriate rate. She received 1 g of tranexamic acid. The left knee was prepped with alcohol and chlorhexidine and 80 mg of Depo-Medrol and 3 cc of 1% lidocaine were injected into the patellofemoral joint through a lateral parapatellar approach without difficulty. The right leg was prepped draped usual fashion. She did have a positive bounce preoperatively in about 3 degree flexion contracture. She had flexion 150. Limb was exsanguinated tourniquet elevated to 250 mmHg. A 6 in longitudinal midline incision was used and a vastus medialis splitting approach utilized splitting the vastus medialis at the superior pole of patella. Infrapatellar and suprapatellar fat pads were excised a quadriceps synovectomy carried out. There was severe patellofemoral arthritis with scalloping and bone loss and longitudinal grooving involving the entire medial facet of the patella and the medial trochlea. The bone was stained with a brownish discoloration. All of the bone surfaces had subchondral brown staining. Bone density was very good throughout. The patella measured 20 mm in thickness centrally. At the apex of the superior pole of measured 25 mm. The patella was cut to 14.5 mm and protector cap was applied. Next a guide rudi was inserted down the femoral canal after aspiration of canal contents using the 5 degree valgus cutting bushing 9 mm of bone removed the distal femur. The tibia was cut make a skim cut off the low point of medial tibial plateau. Our 1st cut was about 2 mm short of being deep enough we cut another 2 mm off this time perpendicular to the axis of the tibia. Again bone quality excellent. Meniscal remnants were excised PCL was recessed. Flexion gap measured 8 mm medially 12 mm laterally. Sizing guide was applied the distal femur set at 4? of external rotation which matched Whitesides line in the transepicondylar axis best. Posterior referencing pinholes were placed and the 62.5 cutting block was applied and AP and chamfer cuts were made in this 62.5 trial fit line to line anterior to posterior and medial to lateral. The knee accepted easily the 10 mm CR insert in flexion with a little bit of play with a Vo elevator both medially and laterally and excellent balance. The knee lacked full extension. The tibia was sized to a 63 vanguard. It had with to allow 67 but at proper rotation referenced off anterior surface of tibial plateau and medial 1/3 of the tibial tubercle, the 67 was going to overhang substantially and in fact the 63 at proper rotation fit line to line posterolateral to anteromedial. This was punched. On trialing with a insert the stability was very appropriate at 90? and all the way back with gravity flexion to 150 with no lift-off the tray and 90? about a mm of mediolateral opening. The knee lacked about 8? of extension. There was no play medially or laterally. Additional 2 mm of bone removed the distal femur chamfer cuts revisited. Removal of a little bit of remaining posterior condylar bone was performed with the trial insert as template. At this time we trialed with the 10 insert. We had put the tourniquet down at 90 minutes. The knee came very close to full extension but had a definite positive bounce. In this position it opened up a mm and half medially a mm laterally. Posterior capsule released from the distal femur was performed centrally. On read trialing the knee ca
[2021-11-20] MEDS: KETOROLAC 15 MG/ML VIAL (*BKC) IV PUSH (16:25)
[2021-11-20] MEDS: fentaNYL CITRATE INJ (*CRX) 100 MCG/2 ML VIAL 25 MCG IV PUSH ×8 (16:37→17:49)
[2021-11-20] MEDS: HYDROmorphone HCL INJ (*CRX) 1 MG/ML SYR 0.5 MG IV PUSH ×2 (17:55→18:05)
--- NOTE | 2021-11-20 18:33 | ADMGEN ---
This patient, Ronit Richards, was admitted to 2 Medical Room 242-01. Patient/family oriented to hospital policies and general routines including ID bracelet, bed and alarms, visiting hours, pain management, procedures, bathroom and other care routines, personal items, smoking policy, room service/diet, and visiting hours. Information on how to activate the Rapid Response Team has been discussed. Patient/Family are encouraged to report perceived risks to care and to ask questions if they do not understand what they are told or what they should do. Report received from BHARATHI Armstrong
--- NOTE | 2021-11-20 19:09 | PC.NURSE ---
medications unverified by pharmacy so medications were not administered. Passed on to night warehouse selector RN.
[2021-11-20] MEDS: SODIUM CHLORIDE 0.9% IV 1,000 ML 125 ML IV CONT (19:49)
[2021-11-20] MEDS: CELECOXIB 200 MG CAPSULE PO (19:50)
[2021-11-20] MEDS: SENNA/DOCUSATE SODIUM TABLET 2 TAB PO (19:50)
[2021-11-20] MEDS: oxyCODONE HCL (*CRX) 5 MG TAB IR PO (20:11)
[2021-11-20] MEDS: PROPRANOLOL HCL 20 MG TABLET PO (20:11)
--- NOTE | 2021-11-20 20:30 | WPDCN ---
Assessment and Plan Assessment and plan (1) Degenerative arthritis of knee, bilateral: Code(s): M17.0 - Bilateral primary osteoarthritis of knee Status: Acute Assessment and Plan: Postoperative day 0 status post right knee arthroplasty and left knee cortisone injection. Patient is doing well postoperatively with minimal discomfort. PT/OT consulted. Vital signs were reviewed and they are stable. Check baseline labs in a.m.. Wound care and pain control deferred to Dr. Yañez as well as DVT prophylaxis. (2) Inflammatory arthritis: Code(s): M19.90 - Unspecified osteoarthritis, unspecified site Status: Acute Assessment and Plan: The patient's registered nurse fetal has given the patient instructions regarding when to resume her medications. (3) Autoimmune hepatitis: Code(s): K75.4 - Autoimmune hepatitis Status: Acute Assessment and Plan: Continue mycophenolate at the recommendation of her box covering machine operator. (4) Systemic lupus erythematosus: Code(s): M32.9 - Systemic lupus erythematosus, unspecified Status: Acute Assessment and Plan: The patient's registered nurse fetal has given the patient instructions regarding when to resume her medications. Plan Thank you for allowing us to participate in this patient's care. Please do not hesitate to contact us with any questions. Supervising physician for this medical consultation is Dr. Jomar Altman. HPI Data of Consult Date/Time: 11/20/21 20:30 Requesting Physician: Brodie Yañez MD Primary Care Provider: Reginaldo Bruno DO Consult Narrative Reason for consult: Postoperative medical management. Narrative: This is a very pleasant 56-year-old female with inflammatory arthritis, osteoarthritis, autoimmune hepatitis, lupus, lichen planus, Sjogren's syndrome, and migraine headaches whom the hospitalist service has been consulted to help manage her medical conditions postoperatively. She has had longstanding pain in both of her knees for decades for which she has received cortisone injections for years. The pain in her right knee has gotten particularly bad and she elected for replacement today. Her surgery was performed under general anesthesia with no immediate complications documented an estimated blood loss of 200 mL. She also had a cortisone injection to her left knee. Her pain has been pretty well controlled postoperatively. She has gotten up with a walker to the bathroom and seems to be doing quite well. She denies postoperative fever, chills, chest pain, shortness breast, nausea, and vomiting. No paresthesias, skin color, or temperature changes distal to the surgical site. Review of Systems Review of Systems: Twelve systems were reviewed. No recent illness. She has chronic dry eyes from Sjogren's and used her refresh tears this evening and that seemed to burn more than usual. No overt eye pain, however. She receives Botox injections to the neck and back of the scalp for frequent headaches. No history of DVT. Except as documented, all other systems were reviewed and are negative. 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 Hyperlipidemia Inflammatory arthritis Lichen planus Persistent headaches Sjogrens syndrome Systemic lupus erythematosus Surgical History Surgical History (Updated 11/21/21 @ 01:05 by Janelle Sandra PA-C) History of arthroplasty of right knee (11/20/21) History of arthroscopy of right knee History of bilateral salpingo-oophorectomy (12/2018) History of cholecystectomy History of endometrial ablation History of tonsillectomy Family History Family History Father Family history of diabetes mellitus in first degree relative Patient's fa
[2021-11-20] MEDS: HYDROXYCHLOROQUINE SULFATE 200 MG TABLET PO (22:22)
[2021-11-20] MEDS: mycophenolate mofetiL 250 MG CAPSULE 1500 MG PO (22:22)
[2021-11-21 00:30] VITALS: BP 112/69; PULSE 76; RESP 21; TEMP 36.8; O2SAT 100
[2021-11-21] MEDS: oxyCODONE HCL (*CRX) 5 MG TAB IR PO ×4 (00:48→15:48)
[2021-11-21] MEDS: ACETAMINOPHEN 500 MG TABLET 1000 MG PO ×3 (00:48→12:28)
[2021-11-21 06:00] VITALS: BP 131/68; PULSE 87; RESP 21; TEMP 36.6; O2SAT 100
[2021-11-21] MEDS: ARTIFICIAL TEARS OPHTH SOLN 15 ML BOTTLE 1 DROP EACH EYE (06:15)
[2021-11-21 06:36] LABS: Basophils Percent Auto 0.1 % (0.2-1.2); Hematocrit 30.5 % (37.0-47.0); Immature Granulocyte Absolute 0.08 K/mm3 (0.00-0.031); Immature Granulocyte Percent A 0.7 % (0-0.5); Lymphocytes Absolute Auto 0.46 K/mm3 (0.9-3.2); Mean Corpuscular HGB Conc 32.8 g/dl (32-36); Mean Corpuscular Hemoglobin 32.5 pg (26-34); Mean Platelet Volume 8.8 fl (7.4-10.4); Monocytes Absolute Auto 0.6 K/mm3 (0.1-0.6); Neutrophils Absolute Auto 10.3 K/mm3 (1.3-6.7); Neutrophils Percent Auto 90.2 % (45.5-73.1); Platelet Count Result 257 k/mm3 (150-375); Red Blood Count 3.08 M/mm3 (4.2-5.4); Red Cell Distribution Width 12.1 % (11.5-14.5); White Blood Count 11.4 K/mm3 (4.5-10.0)
[2021-11-21 06:41] LABS: Alanine Aminotransferase 17 U/L (6-35); Albumin Level 4.3 g/dL (3.5-5.1); Alkaline Phosphatase 49 U/L (38-126); Anion Gap 5 mmol/L (8-16); Aspartate Amino Transferase 29 U/L (14-36); Bilirubin,Total 0.3 mg/dL (0.2-1.3); Blood Urea Nitrogen 9 mg/dL (7-17); Calcium 8.8 mg/dL (8.4-10.2); Carbon Dioxide 28 mmol/L (22-30); Chloride 105 mmol/L (98-107); Estimated CRCL calculation 90 ml/min; Estimated Glomerular Filt Rate > 60; Glucose 139 mg/dL (65-110); Magnesium 1.9 mg/dL (1.6-2.3); Potassium 3.9 mmol/L (3.4-5.0); Sodium 138 mmol/L (137-145)
--- NOTE | 2021-11-21 07:24 | PM.PNORT ---
Subjective Subjective Date/Time Seen: 11/21/21 07:24 Postop day 1 patient is alert. Vital signs are stable. Morning labs are noted. Patient's pain is very well controlled. She has been on multiple times overnight going to the restroom. Dressing is dry and intact. Neurovascularly she is intact. She is able to straight leg raise in the bed today. Overall patient feels well. Will plan to have the patient work with physical therapy twice today if she continues to do well we will plan on discharging home this afternoon. Objective Data Vital Signs Vital Signs: Vital Signs - 24 hr 11/20/21 15:58 11/20/21 16:15 11/20/21 16:30 Temperature 36.8 C Pulse Rate 84 75 88 Respiratory Rate 15 16 20 Blood Pressure 105/74 113/79 123/74 Pulse Oximetry 100 100 100 Oxygen Delivery Simple Face Mask Simple Face Mask Simple Face Mask Oxygen Flow Rate 6 6 6 11/20/21 16:45 11/20/21 17:00 11/20/21 17:15 Temperature Pulse Rate 79 71 78 Respiratory Rate 18 12 15 Blood Pressure 125/79 116/76 120/78 Pulse Oximetry 100 97 100 Oxygen Delivery Simple Face Mask Room Air Room Air Oxygen Flow Rate 6 11/20/21 17:30 11/20/21 17:45 11/20/21 18:00 Temperature Pulse Rate 85 86 82 Respiratory Rate 12 12 12 Blood Pressure 131/77 142/73 H 123/73 Pulse Oximetry 100 100 100 Oxygen Delivery Room Air Room Air Room Air Oxygen Flow Rate 11/20/21 18:09 11/20/21 18:45 11/20/21 18:30 Temperature 36.9 C Pulse Rate 87 87 Respiratory Rate 19 16 Blood Pressure 113/89 123/74 Pulse Oximetry 100 100 Oxygen Delivery Room Air Room Air Oxygen Flow Rate 11/20/21 18:30 11/20/21 20:11 11/20/21 20:19 Temperature 36.4 C 36.6 C Pulse Rate 86 82 84 Respiratory Rate 12 21 H Blood Pressure 118/82 129/72 Pulse Oximetry 100 100 Oxygen Delivery Oxygen Flow Rate 11/20/21 20:43 11/21/21 00:30 11/20/21 20:00 Temperature 36.8 C Pulse Rate 76 Respiratory Rate 21 H Blood Pressure 112/69 Pulse Oximetry 97 100 Oxygen Delivery Room Air Room Air Oxygen Flow Rate Intake/Output Intake/Output: Intake & Output 11/18/21 11/19/21 11/20/21 11/21/21 23:59 23:59 23:59 23:59 Intake Total 700 50 Balance 700 50 Meds/Results Medications: Active Medications Generic Name Dose Route Start Last Admin Trade Name Freq PRN Reason Stop Dose Admin Acetaminophen 1,000 mg 11/21/21 00:00 11/21/21 05:32 Acetaminophen 500 Mg Tablet PO 1,000 mg Q6H JACOB Administration Apixaban 2.5 mg 11/21/21 09:00 Apixaban 2.5 Mg Tablet PO Q12HR JACOB Artificial Tears 1 drop 11/21/21 01:10 11/21/21 06:15 Artificial Tears Ophth Soln 15 Ml Bottle EACH EYE 1 drop QID PRN Administration Dry Eye(s) Celecoxib 200 mg 11/20/21 18:15 11/20/21 19:50 Celecoxib 200 Mg Capsule PO 200 mg BID JACOB Administration Cephalexin HCl 500 mg 11/21/21 18:00 Cephalexin 500 Mg Capsule PO Q6HR JACOB Cyclobenzaprine HCl 0 mg 11/20/21 18:15 Cyclobenzaprine Hcl 10 Mg Tablet PO .COMPLEX JACOB Hydroxychloroquine Sulfate 200 mg 11/20/21 18:15 11/20/21 22:22 Hydroxychloroquine Sulfate 200 Mg Tablet PO 200 mg BID JACOB Administration Cefazolin Sodium 1 gm in 50 mls @ 100 mls/hr 11/20/21 20:00 11/21/21 06:18 Ancef 1 Gm/D5w 50 Ml Pm IVPB 11/21/21 12:29 Infused Q8H JACOB Infusion Miscellaneous Information 1 each 11/20/21 00:01 Cyclobenzaprine For Muscle Spasm Recommended Dose Is 10mg XX 12/20/21 00:00 CLARIFY JACOB Morphine Sulfate 2 mg 11/20/21 18:15 Morphine Sulfate (*Crx) 2 Mg/Ml Inj IV PUSH Q1H PRN Pain Rated 7-10 Mycophenolate Mofetil 1,500 mg 11/20/21 21:00 11/20/21 22:22 Mycophenolate Mofetil 250 Mg Capsule PO 1,500 mg Q12H JACOB Administration Naloxone HCl 0.1 mg 11/20/21 18:15 Naloxone Hcl 0.4 Mg/Ml Vial IV PUSH Q2M PRN Opiate Reversal Oxycodone HCl 5 mg 11/20/21 21:00 11/21/21 05:32 Oxycodone Hcl (*Crx) 5
--- NOTE | 2021-11-21 07:32 | PM.DS ---
DS: Admitting Diagnosis Discharge Date 11/21 Admitting Diagnosis Bilateral knee DJD DS: Discharge Diagnosis Discharge Diagnosis Plan 56-year-old female who underwent right total knee arthroplasty with cortisone injection in the left knee on 11/20. Underwent procedure without complications. Postoperatively she has been afebrile vital signs are stable. Neurovascular she is intact. She is weight-bearing as tolerated. She is on Eliquis for DVT prophylaxis. She was up the day of surgery to the restroom multiple times and doing well. Overall her pain is well controlled. She is on scheduled Tylenol as well as oxycodone 5 mg. She is also on Celebrex 200 mg once a day. Overall patient is doing very well is anxious to be discharged home. Will have her work with physical therapy on postop day 1. She continues do very well plan on discharging her home later that date. She was advised to leg elevated home prevent swelling but do her exercises on a regular basis. She has outpatient therapy starting tomorrow. Patient was advised any questions or concerns when she goes home she should call the office otherwise we will see her at her appointed date. She will have a 2 week course of Keflex due to her history of rheumatoid arthritis and being on biologics. She is going to be off her biologics for 4 weeks, she may resume the Otezla in 2 weeks. DS: Summary Hospital Course Hospital Course: Stable Time Spent with Patient Time attestation: Total time spent providing and/or coordinating discharge services: DS: Data Data Completed and Pending Labs on day of discharge: Labs from last 24 hours 11/21/21 11/21/21 11/20/21 05:25 05:25 10:47 WBC 11.4 H RBC 3.08 L Hgb 10.0 L 12.7 Hct 30.5 L 39.4 MCV 99.0 MCH 32.5 MCHC 32.8 RDW 12.1 Plt Count 257 MPV 8.8 Immature Gran % (Auto) 0.7 H Neut % (Auto) 90.2 H Lymph % (Auto) 4.0 L [place] % (Auto) 5.0 Eos % (Auto) 0.0 Baso % (Auto) 0.1 L Lymph # (Auto) 0.46 L [place] # (Auto) 0.6 Eos # (Auto) 0.0 Baso # (Auto) 0.0 Abs Immat Gran (auto) 0.08 H Absolute Neuts (auto) 10.3 H Absolute Nucleated RBC 0.0 Nucleated RBC % 0.0 Sodium 138 Potassium 3.9 Chloride 105 Carbon Dioxide 28 Anion Gap 5 L BUN 9 Creatinine 0.60 L Estim Creat Clear Calc 90 Estimated GFR > 60 Glucose 139 H Calcium 8.8 Magnesium 1.9 Total Bilirubin 0.3 AST 29 ALT 17 Alkaline Phosphatase 49 Total Protein 7.0 Albumin 4.3 Blood Type Antibody Screen 11/20/21 10:47 WBC RBC Hgb Hct MCV MCH MCHC RDW Plt Count MPV Immature Gran % (Auto) Neut % (Auto) Lymph % (Auto) [place] % (Auto) Eos % (Auto) Baso % (Auto) Lymph # (Auto) [place] # (Auto) Eos # (Auto) Baso # (Auto) Abs Immat Gran (auto) Absolute Neuts (auto) Absolute Nucleated RBC Nucleated RBC % Sodium Potassium Chloride Carbon Dioxide Anion Gap BUN Creatinine Estim Creat Clear Calc Estimated GFR Glucose Calcium Magnesium Total Bilirubin AST ALT Alkaline Phosphatase Total Protein Albumin Blood Type O Positive Antibody Screen Negative Discharge Plan Discharge Patient Disposition: Home, Self-Care Discharge Instructions: LEVY REYES M.D [facility] [address] [place] [address] POST-OPERATIVE DISCHARGE INSTRUCTIONS TOTAL KNEE ARTHROPLASTY 1. When resting, lie on back with leg elevated above heart to minimize swelling. Significant swelling could indicate a blood clot and if this occurs call the office (or go to the ER) to have a venous ultrasound. Elevation should be done either on the couch or in the bed, patient should not sit in a recliner. 2. Do exercise 5 times a day. 3. Do not sit with leg down except for meals. Limit sitting in chair with leg down to 30 minutes at a time 3 times a day. 4
--- NOTE | 2021-11-21 09:20 | WPDANESPN ---
Anes - Prog Note Post-Op Date/Time: 11/21/21 09:20 Cardiovascular status: normal Respiratory status: normal Airway patency: baseline Mental status: baseline Post-Op hydration status: normal Vital Signs: Last Vital Signs Temp 36.6 C 11/21/21 06:00 Pulse 87 11/21/21 06:00 Resp 21 H 11/21/21 06:00 BP 131/68 11/21/21 06:00 Pulse Ox 100 11/21/21 06:00 O2 Del Method Room Air 11/21/21 08:18 O2 Flow Rate 6 11/20/21 16:45 Pain Score (VAS): 3 I/O: Intake & Output 11/20/21 11/21/21 11/21/21 23:59 07:59 15:59 Intake Total 650 950 472 Output Total 1800 Balance 650 -850 472 Laboratory Tests 11/21/21 05:25 11/21/21 05:25 11/20/21 11/20/21 11/21/21 10:47 10:47 05:25 WBC 11.4 H RBC 3.08 L Hgb 12.7 10.0 L Hct 39.4 30.5 L MCV 99.0 MCH 32.5 MCHC 32.8 RDW 12.1 Plt Count 257 MPV 8.8 Immature Gran % (Auto) 0.7 H Neut % (Auto) 90.2 H Lymph % (Auto) 4.0 L [place] % (Auto) 5.0 Eos % (Auto) 0.0 Baso % (Auto) 0.1 L Lymph # (Auto) 0.46 L [place] # (Auto) 0.6 Eos # (Auto) 0.0 Baso # (Auto) 0.0 Abs Immat Gran (auto) 0.08 H Absolute Neuts (auto) 10.3 H Absolute Nucleated RBC 0.0 Nucleated RBC % 0.0 Sodium Potassium Chloride Carbon Dioxide Anion Gap BUN Creatinine Estim Creat Clear Calc Estimated GFR Glucose Calcium Magnesium Total Bilirubin AST ALT Alkaline Phosphatase Total Protein Albumin Blood Type O Positive Antibody Screen Negative 11/21/21 05:25 WBC RBC Hgb Hct MCV MCH MCHC RDW Plt Count MPV Immature Gran % (Auto) Neut % (Auto) Lymph % (Auto) [place] % (Auto) Eos % (Auto) Baso % (Auto) Lymph # (Auto) [place] # (Auto) Eos # (Auto) Baso # (Auto) Abs Immat Gran (auto) Absolute Neuts (auto) Absolute Nucleated RBC Nucleated RBC % Sodium 138 Potassium 3.9 Chloride 105 Carbon Dioxide 28 Anion Gap 5 L BUN 9 Creatinine 0.60 L Estim Creat Clear Calc 90 Estimated GFR > 60 Glucose 139 H Calcium 8.8 Magnesium 1.9 Total Bilirubin 0.3 AST 29 ALT 17 Alkaline Phosphatase 49 Total Protein 7.0 Albumin 4.3 Blood Type Antibody Screen Patient Feedback: Patient satisfied with anesthetic care.
--- NOTE | 2021-11-21 09:41 | ECG_ITS ---
Measurements Intervals [place] Rate: 91 P: 72 MO: 147 QRS: 53 QRSD: 89 T: 60 QT: 303 QTc: 373 Interpretive Statements SINUS RHYTHM WITH FREQUENT VENTRICULAR PREMATURE COMPLEXES NONSPECIFIC T-WAVE ABNORMALITY ABNORMAL RHYTHM ECG COMPARED TO ECG 10/29/2021 13:23:41 THE PVCS ARE NEW Electronically Signed On 11-21-2021 18:04:06 CDT by Olive Estrella M.D.
--- NOTE | 2021-11-21 09:42 | PM.IMCN ---
Assessment and Plan Assessment and plan (1) Degenerative arthritis of knee, bilateral: Code(s): M17.0 - Bilateral primary osteoarthritis of knee Status: Acute Assessment and Plan: Postoperative day 1 status post right knee arthroplasty and left knee cortisone injection. Patient is doing well postoperatively, denies any discomfort to PT and OT consulted for further management, patient did work well working with physical therapy and occupational therapy was able to climb the stairs independently. Vital signs reviewed and are currently stable Baseline labs stable Pain control deferred to Dr. Yañez as well as DVT prophylaxis. Obtain EKG prior to discharge (2) Inflammatory arthritis: Code(s): M19.90 - Unspecified osteoarthritis, unspecified site Status: Acute Assessment and Plan: The patient's director of adult epilepsy has given the patient instructions regarding when to resume her medications. (3) Autoimmune hepatitis: Code(s): K75.4 - Autoimmune hepatitis Status: Acute Assessment and Plan: Continue mycophenolate at the recommendation of her clothing consultant. (4) Systemic lupus erythematosus: Code(s): M32.9 - Systemic lupus erythematosus, unspecified Status: Acute Assessment and Plan: The patient's director of adult epilepsy has given the patient instructions regarding when to resume her medications. (5) Mitral valve prolapse: Code(s): I34.1 - Nonrheumatic mitral (valve) prolapse Status: Acute Assessment and Plan: Patient has a history of MVP. Patient's echocardiogram was performed approximately 26 years ago when she was . Mid systolic click auscultated with a murmur Patient is in BP may be exacerbated by possible dehydration or surgical intervention. Patient currently denies any chest pain, dyspnea, palpitations, dizziness, near syncope episodes after surgery. Patient would benefit from an outpatient echocardiogram Obtain an EKG prior to discharge HPI Data of Consult Consult date: 11/21/21 Requesting Physician: Brodie Yañez MD Primary Care Provider: Reginaldo Bruno, Consult Narrative Narrative: Ronit Richards is a 56 year old female with a past medical history of RA, autoimmune disease hepatitis, and osteoarthritis. Patient is doing well this morning after surgical intervention for her right knee. Patient was able to work well with physical therapy and occupational therapy without difficulty. She denies any dizziness, headache, nausea, vomiting upset stomach or diarrhea. She denies any shortness of breath or chest pain. During my examination this morning the patient appeared to have mid systolic click, after reporting to the patient of my findings the patient then reported that she was told she had MVP approximately 26 years ago (when she was ) and had echocardiogram performed at that time. Due to the patient being asymptomatic at this time suggested to follow up with her primary care physician and obtain an echocardiogram as an outpatient. Will obtain an EKG prior to discharge today. 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 Hyperlipidemia Inflammatory arthritis Lichen planus Persistent headaches Sjogrens syndrome Systemic lupus erythematosus Surgical History Surgical History (Updated 11/21/21 @ 07:31 by ZAHIRA Joyce) History of arthroplasty of right knee (11/20/21) History of arthroscopy of right knee History of bilateral salpingo-oophorectomy (12/2018) History of cholecystectomy History of endometrial ablation History of tonsillectomy Family History Family History Father Family history of diabetes mellitus in first degree relative Patient's fa
[2021-11-21] MEDS: APIXABAN 2.5 MG TABLET PO (10:12)
[2021-11-21] MEDS: CELECOXIB 200 MG CAPSULE PO (10:12)
[2021-11-21] MEDS: SENNA/DOCUSATE SODIUM TABLET 2 TAB PO (10:12)
[2021-11-21] MEDS: HYDROXYCHLOROQUINE SULFATE 200 MG TABLET PO (10:13)
[2021-11-21 10:14] VITALS: PULSE 80
[2021-11-21] MEDS: PROPRANOLOL HCL 20 MG TABLET PO (10:14)
[2021-11-21] MEDS: mycophenolate mofetiL 250 MG CAPSULE 1500 MG PO (10:14)
[2021-11-21 10:18] VITALS: BP 102/71; PULSE 88; RESP 18; TEMP 36.9; O2SAT 98
[2021-11-21] MEDS: polyethylene glycoL 3350 17 GM POWD.PACK PO (10:18)
[2021-11-21 14:47] VITALS: BP 113/66; PULSE 86; RESP 18; TEMP 36.9; O2SAT 100
== END 2021-11-21 15:15 | disposition home or self-care (01) ==
LOC: ANHSURGERY 10:03 → ANH2MED 18:19
PROVIDERS: PCP Internal Medicine; Visit Provider Orthopaedic Surgery
PROC: (CPT 27447; principal; 2021-11-20 12:00)
DX: M17.0 Bilateral primary osteoarthritis of knee (principal); K75.4 Autoimmune hepatitis; M32.9 Systemic lupus erythematosus, unspecified
CPT/HCPCS: 27447; 20610; 36415; 73560; 80053; 83735; 85014; 85018; 85025; 86850; 86900; 86901; 93005; 97110; 97161; 97165; 97530; A9270; C1713; C1776; J0171; J0690; J1040; J1100; J1170; J1200; J1885; J2250; J2270; J2405; J2704; J2795; J3010; J3370; J7030; J7120; J7517

== ENCOUNTER 2021-12-25 12:32 | Outpatient (CLI) | payer BC, SELFPAY ==
--- NOTE | 2021-12-25 12:55 | ECHO_ITS ---
Patient Info Name: Ronit Richards Age: 56 years : 1965 Gender: Female Ht: 68 in Wt: 130 lbs BSA: 1.68 m2 HR: 70 bpm BP: 113 / 81 mmHg Heart Rhythm: Sinus Rhythm Technical Quality: Fair Exam Date: 12/25/2021 1:12 PM Exam Location: [facility] Patient Status: Outpatient Admit Date: 12/25/2021 Staff Ordering Physician: Anni Castillo APRN Instrument Room Technician: Daisha Fleming RDCS Attending Provider: Reginaldo Bruno DO Referring Physician: Jonathan MAE; Exam Type: CA echo doppler color flow Study Info Indications I34.1 - Nonrheumatic mitral (valve) prolapse Complete two-dimensional, color flow and Doppler transthoracic echocardiogram is performed. Summary 1. Complete two-dimensional, color flow and Doppler transthoracic echocardiogram is performed. 2. Left ventricular chamber dimension is mildly enlarged. 3. Left ventricular systolic function is mildly reduced, estimated at 45-50%. 4. The left ventricular diastolic function is grade I diastolic dysfunction. 5. E/e' 8 is minimally elevated. 6. There is mild aortic valve sclerosis. 7. There is trace aortic valve regurgitation. 8. There is trace mitral valve regurgitation. 9. There is trace tricuspid valve regurgitation. 10. No pulmonary hypertension, estimated pulmonary arterial systolic pressure is 25 mmHg. Left Ventricle E/e' 8 is minimally elevated. Left ventricular chamber dimension is mildly enlarged. Left ventricular systolic function is mildly reduced, estimated at 45-50%. The left ventricular diastolic function is grade I diastolic dysfunction. Right Ventricle Right ventricular systolic function is normal and with normal TAPSE 2.3 cm. Right ventricular chamber dimension is normal. Left Atria Left atrial chamber dimension is normal. Right Atria Right atrial chamber dimension is normal. Aortic Valve The aortic valve is trileaflet. There is mild aortic valve sclerosis. There is no aortic valve stenosis. There is trace aortic valve regurgitation. Pulmonic Valve There is no pulmonic regurgitation. Mitral Valve No mitral valve prolapse. There is no mitral valve stenosis. There is trace mitral valve regurgitation. Tricuspid Valve There is trace tricuspid valve regurgitation. No pulmonary hypertension, estimated pulmonary arterial systolic pressure is 25 mmHg. Pericardium/Pleural There is no pericardial effusion. Inferior Vena Cava Normal inferior vena cava with >50% collapse upon inspiration consistent with normal right atrial pressure, 5 mmHg. Aorta The aortic root size at the sinus of Valsalva is normal. Left Ventricular Outflow Tract Name Value Normal LVOT 2D LVOT Diameter 2.0 cm LVOT Doppler LVOT Peak Gradient 3 mmHg LVOT Mean Gradient 1 mmHg LVOT VTI 14 cm LVOT VTI/AV VTI Ratio 0.6 LVOT Stroke Volume 45 ml LVOT CO 3.4 l/min LVOT CI 2.0 l/min/m2 Pulmonic Valve ---
== END 2021-12-25 12:33 | disposition home or self-care (01) ==
LOC: ANHLAB 12:35
PROVIDERS: PCP Internal Medicine; Visit Provider Internal Medicine
DX: I34.1 Nonrheumatic mitral (valve) prolapse (principal); I35.8 Other nonrheumatic aortic valve disorders
CPT/HCPCS: 93306

== ENCOUNTER 2021-12-26 15:30 | Outpatient (RCR) | payer BC, SELFPAY ==
--- NOTE | 2021-11-22 15:40 | PTOPEVAL ---
Thank you for referring Ronit Richards to [facility].? She is scheduled to be seen for therapy? 1-2 x/week for 5 weeks. Please review, sign, date and return this plan of care FARRAH. I agree with and certify that the following plan of care is medically necessary. Referring Physician Date Attending Provider: Brodie Yañez MD Outpatient Past Medical History Past Medical History Source of Past Medical History Recalled from Previous Visit, Confirmed with Patient/Family Neurological History Hx Migraine Yes: CHRONIC Hx Other Neurological Disorders Yes: CHRONIC HEADACHES-INDERAL , AMITRIPTYLINE & FLEXERIL FOR BA/MIGRAINES Cardiovascular History Hx Cardiac Disorders No Significant History Respiratory History Hx Other Respiratory Disorders Yes: HISTOPLASMOSIS - A CHILD Gastrointestinal History Hx Cholecystectomy Yes Hx Hepatitis Yes: [employer] Genitourinary History Hx Genitourinary Disorders No Significant History Musculoskeletal History Hx Arthritis Yes: PSORIATIC, OA BILATERAL KNEES Hx Back Pain Yes: 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 EVELYN COHEN MONITORING HEENT History Hx Tonsillectomy Yes: 1969 Hx Other HEENT Disorders Yes: SJORGEN'S SYNDROME Integumentary History Hx Other Skin Disorders Yes: LICHEN PLANUS Reproductive History Hx Post Menopausal Yes Hx Other Reproductive Disorders Yes: UTERINE ABLATION, BILATERAL SALPINO-OOPHERECTOMY 2019 Psychosocial History Hx Psychiatric Disorders No Significant History Pain History Has Past Pain Affected Your Daily Life Yes: BA/MIGRAINE, NECK, KNEES Anesthesia History Hx Anesthesia Reactions No Significant History Evaluation Information Diagnosis s/p R TKR Onset 11-20-21 Subjective Information doing OK at home with mobility Query Text:As Reported By Patient/ , did ok on stairs; have HEP Family from hospital- sit and supine, did 20 reps yesterday-- overdid it and more swollen today Prior Level of Function Activity Level (Last 3 Months) 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
--- NOTE | 2021-12-04 17:13 | PCPTNOTE ---
Patient called & cancelled scheduled appointment for 12/05/21 due to not having a ride. Will continue per POC.
--- NOTE | 2021-12-12 16:22 | PCPTNOTE ---
Patient wanted to cancel due to having transportation limitation.
--- NOTE | 2021-12-19 09:13 | PCPTNOTE ---
Patient called & cancelled scheduled appointment this date due to transportation difficulty, she would like to do just once a week.
--- NOTE | 2021-12-24 17:08 | PCPTNOTE ---
Patient called & cancelled scheduled appointment this date due to not feeling well.
--- NOTE | 2021-12-26 16:18 | PTOPEVAL ---
PHYSICAL THERAPY DISCHARGE REPORT 12-26-21 Refer to the clinical summary below for her status today, compared to the initial evaluation. The goals were achieved. Discharge PT services at this time. She is to continue with her HEP. Thank you for referring Ronit Richards to [facility].? Please review, sign, date and return Discharge Report FARRAH. I agree with and certify that the following plan of care is medically necessary. Referring Physician Date Attending Provider: Brodie Yañez MD Subjective Information Ronit reports: not feeling Query Text:As Reported By Patient/ well overall due to Family rheumatology issues--reaction to med, lost 14#; working with new rf test engineer; knee is doing well; have stationary bike now at home, doing 10 min at time; Pain Assessment Pain Scale Pain Scale Used Numeric (1 - 10) Self Report Pain Assessment Right Knee(s) Reported Pain Level 0 Pain Frequency Acute,Intermittent Lowest Pain Intensity 0 Greatest Pain Intensity 3 Additional Pain Score Comments stretched knee with slight twist when walking on side way Interventions Used Interventions Used By Clinicians Education,Exercise Pain Relief Interventions Used By Medication Patient Other Alleviating Interventions taking over counter meds for knee pain Gross Lower Extremity Range of Motion sitting 0-130' active R knee Comments ROM Lower Extremity Muscle Strength Testing Gross Lower Extremity Strength functional strength testing; R LE: - single leg standing 17 seconds with 3# ankle wt: - supine SLR x 15 reps; - side lying hip abduction x 20 reps; hip adduction x 17 reps - prone: hip extension NO wt; x 15 reps; knee flexion 3# x 15 reps reviewed HEP: continue and added prone hip extension and knee flexion--progress to use of wt; issued green theraband to progress her HEP; continue to increase walking and bicycle use as tolerated; monitor L knee pain with the activity and NOT
== END 2021-12-27 10:49 | disposition home or self-care (01) ==
LOC: ANHPT 15:30
PROVIDERS: PCP Internal Medicine; Visit Provider Orthopaedic Surgery
DX: M17.11 Unilateral primary osteoarthritis, right knee (principal)
CPT/HCPCS: 97110; 97112; 97116; 97161; 97530

== ENCOUNTER 2022-01-06 12:16 | Emergency (ER) | payer BC, SELFPAY ==
--- NOTE | ~2022-01-06 | XR_ITS ---
EXAMINATION: XR chest 2V 01/06/2022 12:52 INDICATION: Shortness of breath. Chest palpitations. PROCEDURE: 2 view chest COMPARISON: 11/18/2016 FINDINGS: There are bilateral calcified granulomas. No focal pneumonia or edema. The cardiomediastina l silhouette is within normal limits. There are no pleural effusions. There is no pneumothorax susp ected. IMPRESSION: 1: NO ACUTE CARDIOPULMONARY DISEASE. Reviewed, dictated and finalized at location B.
--- NOTE | ~2022-01-06 | CT_ITS ---
EXAMINATION: CTA chest PE protocol DATE: 01/06/2022 16:12 INDICATION: Shortness of breath. Palpitations. TECHNIQUE: Computed tomography angiography (CTA) of the chest was performed with 100 mL Omnipaque-350 intravenous contrast timed to evaluate the pulmonary arteries. Coronal maximum intensity projection 3D-reconstructions were created by the technologist. Automated exposure control and iterative reconst ruction technique were employed. The dose-length product was 142.92 mGy-cm. COMPARISON: Chest CT 02/25/2018 FINDINGS: There is stable mild scarring at the lung apices. Calcified pulmonary nodules and calcified hilar and mediastinal lymph nodes are consistent with old granulomatous disease. There is a stable 5 mm nodule in left upper lobe at the major fissure, likely benign. No pleural effusion. There is no p ulmonary embolus. There is mild thoracic spondylosis. IMPRESSION: 1. No pulmonary embolus. Reviewed, dictated and finalized at location A. IMPRESSION: 1. No pulmonary embolus.
--- NOTE | 2022-01-06 12:22 | ECG_ITS ---
Measurements Intervals [place] Rate: 88 P: 35 OK: 146 QRS: 72 QRSD: 81 T: 45 QT: 346 QTc: 419 Interpretive Statements SINUS RHYTHM WITHIN NORMAL LIMITS COMPARED TO ECG 11/21/2021 10:37:20 PVCS HAVE RESOLVED Electronically Signed On 01-06-2022 14:07:53 CDT by Israel Osman M.D.
[2022-01-06 12:27] VITALS: BP 122/69; PULSE 47; RESP 14; TEMP 36.8; O2SAT 100
[2022-01-06 12:42] LABS: Basophils Absolute Auto 0.1 K/mm3 (0.0-0.1); Basophils Percent Auto 1.1 % (0.2-1.2); Eosinophils Percent Auto 0.7 % (0-4.4); Hematocrit 37.7 % (37.0-47.0); Hemoglobin 11.9 g/dL (12.0-15.0); Immature Granulocyte Absolute 0.02 K/mm3 (0.00-0.031); Immature Granulocyte Percent A 0.5 % (0-0.5); Lymphocytes Absolute Auto 0.87 K/mm3 (0.9-3.2); Lymphocytes Percent Auto 19.8 % (18.3-44.2); Mean Corpuscular HGB Conc 31.6 g/dl (32-36); Mean Corpuscular Hemoglobin 31.4 pg (26-34); Mean Corpuscular Volume 99.5 fl (80-100); Mean Platelet Volume 8.5 fl (7.4-10.4); Monocytes Absolute Auto 0.5 K/mm3 (0.1-0.6); Monocytes Percent Auto 11.6 % (2.6-8.5); Neutrophils Absolute Auto 2.9 K/mm3 (1.3-6.7); Neutrophils Percent Auto 66.3 % (45.5-73.1); Platelet Count Result 315 k/mm3 (150-375); Red Blood Count 3.79 M/mm3 (4.2-5.4); Red Cell Distribution Width 12.3 % (11.5-14.5); White Blood Count 4.4 K/mm3 (4.5-10.0)
[2022-01-06 12:52] LABS: Alanine Aminotransferase 16 U/L (6-35); Albumin Level 4.7 g/dL (3.5-5.1); Alkaline Phosphatase 51 U/L (38-126); Anion Gap 8 mmol/L (8-16); Aspartate Amino Transferase 25 U/L (14-36); Bilirubin,Total 0.3 mg/dL (0.2-1.3); Blood Urea Nitrogen 4 mg/dL (7-17); Calcium 9.3 mg/dL (8.4-10.2); Carbon Dioxide 31 mmol/L (22-30); Chloride 99 mmol/L (98-107); Estimated CRCL calculation 70 ml/min; Estimated Glomerular Filt Rate > 60; Glucose 104 mg/dL (65-110); Potassium 3.9 mmol/L (3.4-5.0); Sodium 138 mmol/L (137-145)
[2022-01-06 13:45] LABS: Magnesium 2.2 mg/dL (1.6-2.3)
[2022-01-06 13:58] LABS: Troponin I < 0.012 ng/mL (0.000-0.034)
[2022-01-06 14:15] VITALS: BP 113/84; BP 115/84; BP 99/67; PULSE 79; PULSE 82; PULSE 97
[2022-01-06 14:20] VITALS: BP 115/84; PULSE 84; RESP 18; O2SAT 100
[2022-01-06] MEDS: SODIUM CHLORIDE 0.9% IV 1,000 ML 999 ML IV CONT (15:14)
[2022-01-06 15:32] LABS: D Dimer 0.93 ug/mL (<0.48)
[2022-01-06 16:24] VITALS: BP 136/72; PULSE 80; RESP 20; O2SAT 100
--- NOTE | 2022-01-06 16:24 | ED.GENADULT ---
HPI - General Adult General Chief complaint: Arrhythmia/Palpitations Stated complaint: arrythmias, shortness of breath Time Seen by Provider: 01/06/22 13:06 History of Present Illness HPI narrative: Patient is a 56-year-old female who presents ER with concerns of having an arrhythmia. She gets lightheaded and will sometimes feel palpitations. Patient reports she underwent surgery for right knee replacement. While hospitalized she had an echocardiogram due to PVCs. She was found to have slightly reduced ejection fraction of 40 to 50%. She is also found to have some aortic valve sclerosis. No mitral valve prolapse or other valvular issue. She is having lightheadedness when she goes from sitting to standing. She reports this is likely exacerbated by the fact that she has had some diarrhea for which she is post follow-up with Dr. Wili carlos to have a colonoscopy. She has been placed on Bentyl as well as Flagyl to help with her symptoms. Diarrhea has reduced. Patient reports she has been in with her steam station supervisor for medication adjustments. He has recommended she see a classroom teacher given her palpitations. Related Data Home Medications Medication Instructions Recorded Confirmed hydroxychloroquine 200 mg tablet 200 mg PO BID 05/04/19 11/20/21 (Plaquenil) propranolol 20 mg tablet 20 mg PO Q12H 05/04/19 11/20/21 mycophenolate mofetil 500 mg 1,500 mg PO Q12H 12/05/19 11/20/21 tablet (CellCept) celecoxib 200 mg capsule (Celebrex) 200 mg PO BID 10/29/21 11/20/21 apremilast 30 mg tablet (Otezla) 30 mg PO BID 01/01/22 belimumab 200 mg/mL subcutaneous 200 mg subcut WEEKLY 01/01/22 auto-injector (Benlysta) Allergies Allergy/AdvReac Type Severity Reaction Status Date / Time vancomycin Allergy Redness of Verified 01/01/22 10:44 Skin Review of Systems Review of Systems: All systems reviewed & are unremarkable except as noted in HPI and below Constitutional: Constitutional: Denies chills, Denies fatigue and Denies fever(s) ENT: Denies nasal congestion and Denies sore throat Cardiovascular: Cardiovascular: Reports chest pain, Denies rapid heart rate and Denies radiating jaw, neck or arm pain Comments: +Palpitations Respiratory: Respiratory: Denies cough, Denies dyspnea and Denies wheezing Gastrointestinal: Gastrointestinal: Denies abdominal pain, Reports diarrhea, Denies nausea and Denies vomiting Musculoskeletal: Musculoskeletal: Denies back pain, Denies arthralgias and Denies joint swelling Neurologic: Denies headache(s), Denies focal weakness and Denies numbness [facility] Past Medical History Medical History (Updated 01/06/22 @ 16:48 by Manas Weinstein MD) Autoimmune hepatitis Chronic nausea Degenerative arthritis of knee, bilateral Histoplasmosis In childhood, 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 Hyperlipidemia Inflammatory arthritis Lichen planus Persistent headaches Sjogrens syndrome Systemic lupus erythematosus Surgical History Surgical History History of arthroplasty of right knee (11/20/21) History of arthroscopy of right knee History of bilateral salpingo-oophorectomy (12/2018) History of cholecystectomy History of endometrial ablation History of tonsillectomy Family History Family History Father Family history of diabetes mellitus in first degree relative Patient's father is Mother Family history of malignant neoplasm of breast in first degree relative Family history of osteoarthritis Social History Social History Social History: Surrogate decision maker: Peewee Richards, spouse. Code status: Full code. Smoking status: Never smoker Second hand tobacco smoke exposure: No Alcohol intake: current Alcohol use details: 2 alcoholic beverages a month. Substance use: never Substance us
[2022-01-06 17:24] VITALS: BP 141/71; PULSE 91; RESP 22; O2SAT 100
== END 2022-01-06 17:26 | disposition home or self-care (01) ==
PROVIDERS: Emergency Medicine; Emergency Provider Emergency Medicine; PCP Internal Medicine
DX: I95.1 Orthostatic hypotension (principal); I49.3 Ventricular premature depolarization; M19.90 Unspecified osteoarthritis, unspecified site; E78.5 Hyperlipidemia, unspecified
CPT/HCPCS: 36415; 71046; 71275; 80053; 83735; 84484; 85025; 85380; 93005; 96360; 99284; J7030; Q9967

== ENCOUNTER 2022-02-03 02:58 | Day surgery (SDC) | payer BC, SELFPAY ==
[2022-01-31 14:33] VITALS: BMI 19.6
[2022-02-03] VITALS (13 sets, daily range): BP systolic 114–136; BP diastolic 59–97; PULSE 60–91; RESP 12–21; TEMP 37.1; O2SAT 100; BMI 19.1
[2022-02-03 10:48] LABS: Basophils Absolute Auto 0.1 K/mm3 (0.0-0.1); Basophils Percent Auto 1.1 % (0.2-1.2); Eosinophils Absolute Auto 0.1 K/mm3 (0-0.3); Eosinophils Percent Auto 3.1 % (0-4.4); Hematocrit 40.2 % (37.0-47.0); Hemoglobin 12.9 g/dL (12.0-15.0); Immature Granulocyte Absolute 0.01 K/mm3 (0.00-0.031); Immature Granulocyte Percent A 0.2 % (0-0.5); Lymphocytes Percent Auto 29.2 % (18.3-44.2); Mean Corpuscular HGB Conc 32.1 g/dl (32-36); Mean Corpuscular Hemoglobin 31.2 pg (26-34); Mean Corpuscular Volume 97.1 fl (80-100); Mean Platelet Volume 8.7 fl (7.4-10.4); Monocytes Absolute Auto 0.6 K/mm3 (0.1-0.6); Monocytes Percent Auto 12.6 % (2.6-8.5); Neutrophils Absolute Auto 2.4 K/mm3 (1.3-6.7); Neutrophils Percent Auto 53.8 % (45.5-73.1); Platelet Count Result 262 k/mm3 (150-375); Red Blood Count 4.14 M/mm3 (4.2-5.4); Red Cell Distribution Width 12.1 % (11.5-14.5); White Blood Count 4.5 K/mm3 (4.5-10.0)
[2022-02-03 11:04] LABS: Anion Gap 10 mmol/L (8-16); Blood Urea Nitrogen 13 mg/dL (7-17); Calcium 10.2 mg/dL (8.4-10.2); Carbon Dioxide 30 mmol/L (22-30); Chloride 100 mmol/L (98-107); Estimated CRCL calculation 81 ml/min; Estimated Glomerular Filt Rate > 60; Glucose 96 mg/dL (65-110); Sodium 140 mmol/L (137-145)
[2022-02-03 11:10] LABS: Prothrombin Time 12.7 Seconds (11.1-14.7)
--- NOTE | 2022-02-03 11:46 | HP_ITS ---
This report was moved to the correct visit on 02/07/22. Original report was signed by Israel Osman MD on 02/03/22 1146. Moderate Sedation Note-Pt Data Patient Data Diagnosis: Left ventricular systolic dysfunction ventricular arrhythmias Present Complaint: no complaints Procedure to be performed/Plan: left heart catheterization Allergies Allergy/AdvReac Type Severity Reaction Status Date / Time vancomycin AdvReac Intermediate Redness of Verified 01/10/22 10:43 Skin Home Medications Medication Instructions Recorded Confirmed Type propranolol 20 mg tablet 20 mg PO Q12H 05/04/19 02/03/22 History mycophenolate mofetil 500 mg 1,000 mg PO DAILY 12/05/19 02/03/22 History tablet (CellCept) cyclobenzaprine 10 mg tablet See Rx Instructions .Route 12/30/19 02/03/22 Rx .COMPLEX #90 tabs belimumab 200 mg/mL subcutaneous 200 mg subcut WEEKLY 01/01/22 02/03/22 History auto-injector (Benlysta) amitriptyline 10 mg tablet 20 mg PO .QHS #180 tabs 01/28/22 02/03/22 Rx Women's Multivitamin 1 tablet PO DAILY 02/03/22 02/03/22 History acetaminophen 650 mg 1,300 mg PO Q12H 02/03/22 02/03/22 History tablet,extended release cholecalciferol (vitamin D3) 50 50 mcg PO DAILY 02/03/22 02/03/22 History mcg (2,000 unit) tablet (Vitamin D3) diclofenac sodium 75 mg 75 mg PO BID 02/03/22 02/03/22 History tablet,delayed release Sedation/Anesthesia: No previous sedation/anesthesia problems (including family history). [facility] Past Medical History Medical History (Updated 01/07/22 @ 00:01 by Lesli Kendall) Autoimmune hepatitis Chronic nausea Degenerative arthritis of knee, bilateral Histoplasmosis In childhood, 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 Hyperlipidemia Inflammatory arthritis Lichen planus Persistent headaches Sjogrens syndrome Systemic lupus erythematosus Surgical History Surgical History History of arthroplasty of right knee (11/20/21) History of arthroscopy of right knee History of bilateral salpingo-oophorectomy (12/2018) History of cholecystectomy History of endometrial ablation History of tonsillectomy Family History Family History Father Family history of diabetes mellitus in first degree relative Patient's father is Mother Family history of malignant neoplasm of breast in first degree relative Family history of osteoarthritis Social History Social History Social History: Surrogate decision maker: Peewee Richards, spouse. Code status: Full code. Smoking status: Never smoker Second hand tobacco smoke exposure: No Alcohol intake: current Alcohol use details: 2 alcoholic beverages a month. 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 Spiritual care concerns: No Mod Sed Physical Exam Physical Exam Pre Procedural Exam: Normal: Appearance, Neck, Throat, Airway, Lungs, Heart Size, Heart Rate, Heart Rhythm, Neuro Exam and Extremities Hours since solid foods: 12 Hours since liquid intake: 12 Mallampati Classification: class II ASA Classification/Sedation ASA Classification/Sedation ASA Class: II Emergent: No Risks: Risks, benefits and alternatives explained and patient/family accepted plan for sedation. Patient re-evaluated immediately prior to sedation. This dictation september
--- NOTE | 2022-02-03 12:11 | CARDIO_ITS ---
This report was moved to the correct visit on 02/07/22. Original report was signed by Israel Osman MD on 02/03/22 1211. Cardiac Cath Procedure Note Date of procedure:: 02/03/22 Performing physician:: Israel Osman MD Indication:: left ventricular systolic dysfunction ventricular arrhythmia Brief clinical history:: this is a 56-year-old lady without previous history of cardiac disease but with history of rheumatoid arthritis. She was found during recent noncardiac surgery to have frequent ventricular ectopic activity. Holter monitors have demonstrated significant PVC burden with short runs of nonsustained VT. ECHO has demonstrated evidence of mild LV systolic dysfunction. Procedure Procedure performed:: Left ventriculogram coronary angiogram Sedation/Medication given:: fentanyl 25 mg Versed 2 mg case start time 11:49 a.m. case end time 11:59 a.m. sedation provided by Shirley Machuca RN, trained observer Access site:: right femoral artery Estimated blood loss:: 25 cc Procedure note:: patient was brought to the cardiac catheterization lab in the postabsorptive state where the right femoral triangle was prepared and draped in the usual fashion. Anesthesia was provided with 1% lidocaine infiltrated locally. Using the modified Seldinger technique the femoral artery was punctured a 5 Bangladeshi vascular sheath was placed. After this left heart catheterization was carried out. I used a 5 Bangladeshi angled pigtail catheter to measure left-sided hemodynamics and to inject ventriculogram in the our AO projection. Following this I used standard 5 Bangladeshi FL4 catheter to engage and inject the left coronary artery and a 5 Bangladeshi JR4 catheter to engage and inject the right coronary artery. The cineangiograms were then reviewed and the case was terminated. The sheath was removed in the cardiac catheterization lab. The artery was very superficial so I elected not to place an Angio-Seal device at the conclusion of the procedure. There were no procedural complications. Findings:: Hemodynamics: Central aortic pressure is 98 over 56 left ventricle 98/5 end-diastolic pressure 12 there is no systolic gradient on pullback across the aortic valve. Left ventricle: The LV is normal in size. There appears to be mild global systolic hypocontractility with a global ejection fraction of 40-45%. The left main coronary artery is widely patent the left anterior descending is a moderate caliber artery extending down to and around the apex. The LAD is smooth and angiographically normal appearing circumflex is a moderate caliber artery giving rise to marginal branches. The circumflex system is also smooth and angiographically normal in appearance right coronary artery is large in caliber and dominant to the posterior circulation the right coronary artery is smooth and angiographically normal. Conclusion:: 1. Right coronary dominant circulation with no angiographic abnormality 2. mild global left ventricular systolic dysfunction ejection fraction 40-45% by visual estimation Israel Osman MD [facility] This dictation may have been done utilizing a voice recognition system. Attempts have been made to correct errors. However, there may be uncorrected grammatical, spelling, and recognition errors present. Report Initialized date/time: Israel Osman MD 02/03/22 / 1211 Electronically signed by: Israel Osman MD 02/03/22 121 [facility]
== END 2022-02-03 17:25 | disposition home or self-care (01) ==
PROVIDERS: PCP Internal Medicine; Visit Provider Specialist
PROC: 4A023N7 Measurement of Cardiac Sampling and Pressure, Left Heart, Percutaneous Approach (ICD-10-PCS; CPT 93452; principal; 2022-02-03 11:30)
DX: I47.2 Ventricular tachycardia (principal); R93.1 Abnormal findings on diagnostic imaging of heart and coronary circulation; I51.9 Heart disease, unspecified; M35.00 Sjogren syndrome, unspecified; L43.9 Lichen planus, unspecified; K75.4 Autoimmune hepatitis
CPT/HCPCS: 36415; 80048; 85025; 85610; 93458; C1887; C1894; J1644; J2250; J3010; J7040

== ENCOUNTER 2022-04-29 01:24 | Day surgery (SDC) | payer BC, SELFPAY ==
[2022-01-10 10:26] VITALS: BMI 19.5
--- NOTE | 2022-01-16 10:21 | SUR.PREOP ---
[address] Em anesthesiologist regarding patient's visit to the ER related to her heart. Patient was having runs of bigeminy and referred to a cardiologists. A halter monitor was done in the office with trigeminy, bigeminy and short runs of V tach noted per patient. Patient has an upcoming appointment with the administrative underwriter. Case discussed with Dr Em. Dr. Em does not want to proceed with pt's EGD and Colonoscopy scheduled for 01/17 until the patient has been seen by the administrative underwriter. PAT nurse to call patient and discuss with patient.
[2022-04-14 13:27] VITALS: BMI 21.1
[2022-04-29 06:50] VITALS: BP 143/95; PULSE 118; RESP 18; TEMP 36.4; O2SAT 100; BMI 19.9
--- NOTE | 2022-04-29 07:11 | WPDANESEPPF ---
Anes - Initial Pre Proc Eval Procedure: Operation Date: 04/29/22 08:00 Proposed Procedures p Esophagogastroduodenoscopy & Colonoscopy - Bayron Garcia MD Date/Time: 04/29/22 07:11 Surgeon: Bayron Garcia MD Pre Op Diagnosis: diarrhea, weightloss,nausea Patient Data Age: 56 Gender: F Height: 1.73 m Weight: 59.5 kg Last Vital Signs Temp 36.4 C L 04/29/22 06:50 Pulse 118 H 04/29/22 06:50 Resp 18 04/29/22 06:50 BP 143/95 H 04/29/22 06:50 Pulse Ox 100 04/29/22 06:50 O2 Del Method Room Air 04/29/22 06:50 Allergies Allergy/AdvReac Type Severity Reaction Status Date / Time vancomycin AdvReac Intermediate Redness of Verified 04/29/22 06:56 Skin Home Medications Medication Instructions Recorded Confirmed Type mycophenolate mofetil 500 mg 1,000 mg PO DAILY 12/05/19 04/29/22 History tablet (CellCept) cyclobenzaprine 10 mg tablet See Rx Instructions .Route 12/30/19 04/29/22 Rx .COMPLEX #90 tabs Women's Multivitamin 1 tablet PO DAILY 02/03/22 04/29/22 History acetaminophen 650 mg 1,300 mg PO Q12H 02/03/22 04/29/22 History tablet,extended release cholecalciferol (vitamin D3) 50 50 mcg PO DAILY 02/03/22 04/29/22 History mcg (2,000 unit) tablet (Vitamin D3) diclofenac sodium 75 mg 75 mg PO BID 02/03/22 04/29/22 History tablet,delayed release amitriptyline 10 mg tablet 20 mg PO .QHS #180 tabs 04/04/22 04/29/22 Rx losartan 25 mg tablet 25 mg PO DAILY 04/14/22 04/29/22 History metoprolol succinate 25 mg 50 mg PO QAM 04/14/22 04/29/22 History tablet,extended release 24 hr (Toprol XL) ustekinumab 45 mg/0.5 mL 45 mg subcut MONTHLY 04/14/22 04/29/22 History subcutaneous syringe (Stelara) atorvastatin 20 mg tablet 20 mg PO DAILY #30 tabs 04/21/22 04/29/22 Rx Patient hx anesthesia problems: none Family hx anesthesia problems: none Results Review: All pre-operative results and documents have been reviewed as part of the pre-operative evaluation. [facility] Past Medical History Medical History (Updated 01/07/22 @ 00:01 by Lesli Kendall) Autoimmune hepatitis Chronic nausea Degenerative arthritis of knee, bilateral Histoplasmosis In childhood, 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 Hyperlipidemia Inflammatory arthritis Lichen planus Persistent headaches Sjogrens syndrome Systemic lupus erythematosus Surgical History Surgical History History of arthroplasty of right knee (11/20/21) History of arthroscopy of right knee History of bilateral salpingo-oophorectomy (12/2018) History of cholecystectomy History of endometrial ablation History of tonsillectomy Family History Family History Father Family history of diabetes mellitus in first degree relative Patient's father is Mother Family history of malignant neoplasm of breast in first degree relative Family history of osteoarthritis Social History Social History Social History: Surrogate decision maker: Peewee Richards, spouse. Code status: Full code. 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 Spiritual care concerns: No Anes - Eval Final PreProcedure Day of Procedure 04/29/22 07:11 Patient weight: normal Heart: regular rate and rhythm Lungs: clear to auscultation and normal air movement Airway: Mallampati scale class II Neurological: alert and oriented Last oral intake: >/= 8 hours ASA classification: III Emergent: no Anesthetic plan: proceed Anesthesia type and monitoring: general GIVS and standard monitoring Results Rev
[2022-04-29] MEDS: LACTATED RINGERS 1,000 ML 150 ML IV CONT (07:16)
[2022-04-29] MEDS: GENTAMICIN 80MG/SOD CHL 50 ML 80 MG/50 ML BAG 100 MG IVPB (07:28)
--- NOTE | 2022-04-29 07:55 | PM.HPGS ---
History of Present Illness History of Present Illness Consent: Risks, benefits, and alternatives have been discussed and questions answered. Patient agrees to proceed with procedure. Chief complaint: diarrhea, weightloss,nausea Narrative: Ronit Richards is a 56 year old female wiht AIH on cellcep, psoriasis recently started on stelara. Since she had knee surgery on November had diarrhea with weight loss but now resolved and back to her baseline (had mild elevated calprotectin in stool), last colonoscopy normal in 2014. Also she has chronic nausea and never had egd. Review of Systems Constitutional: Constitutional: Denies headache(s) and Denies weakness Eyes: Eyes: Denies blurry vision ENT: Reports Normal hearing present, Denies headache(s) and Denies neck pain Cardiovascular: Cardiovascular: Denies chest pain and Denies dyspnea Respiratory: Respiratory: Denies dyspnea Gastrointestinal: Gastrointestinal: Reports no additional gastrointestinal complaints Genitourinary: Genitourinary: Denies dysuria Musculoskeletal: Musculoskeletal: Denies neck pain Integumentary/Breasts: Comments: h/o psoriaris Neurologic: Reports Normal hearing present, Denies headache(s) and Denies weakness Psychiatric: Psychiatric: Denies anxiety Endocrine: Endocrine: Denies change in body appearance Hematologic/Lymphatic: Hematologic/Lymphatic: Denies easy bleeding Allergic/Immunologic: Allergic/Immunologic: Denies urticaria PMFSH Past Medical History Medical History (Updated 01/07/22 @ 00:01 by Lesli Kendall) Autoimmune hepatitis Chronic nausea Degenerative arthritis of knee, bilateral Histoplasmosis In childhood, 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 Hyperlipidemia Inflammatory arthritis Lichen planus Persistent headaches Sjogrens syndrome Systemic lupus erythematosus Surgical History Surgical History History of arthroplasty of right knee (11/20/21) History of arthroscopy of right knee History of bilateral salpingo-oophorectomy (12/2018) History of cholecystectomy History of endometrial ablation History of tonsillectomy Family History Family History Father Family history of diabetes mellitus in first degree relative Patient's father is Mother Family history of malignant neoplasm of breast in first degree relative Family history of osteoarthritis Social History Social History Social History: Surrogate decision maker: Peewee Richards, spouse. Code status: Full code. 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 Meds Home Medications and Allergies Home Medications Medication Instructions Recorded Confirmed Type mycophenolate mofetil 500 mg 1,000 mg PO DAILY 12/05/19 04/29/22 History tablet (CellCept) cyclobenzaprine 10 mg tablet See Rx Instructions .Route 12/30/19 04/29/22 Rx .COMPLEX #90 tabs Women's Multivitamin 1 tablet PO DAILY 02/03/22 04/29/22 History acetaminophen 650 mg 1,300 mg PO Q12H 02/03/22 04/29/22 History tablet,extended release cholecalciferol (vitamin D3) 50 50 mcg PO DAILY 02/03/22 04/29/22 History mcg (2,000 unit) tablet (Vitamin D3) diclofenac sodium 75 mg 75 mg PO BID 02/03/22 04/29/22 History tablet,delayed release amitriptyline 10 mg tablet 20 mg PO .QHS #180 tabs 04/04/22 04/29/22 Rx losartan 25 mg tablet 25 mg PO DAILY 04/14/22 04/29/22 History metoprolol succinate 25 mg 50 mg PO QAM 04/14/22 04/29/22 History tablet,extended release 24 hr (Toprol XL) ustekinumab 45 mg/0.5 mL 45 mg subcut M
[2022-04-29] MEDS: AMPICILLIN 2 GM/NS 100 ML 2 GM/100 ML BAG IVPB (07:57)
--- NOTE | 2022-04-29 08:28 | SUR.OPER ---
EGD START: 802; END: 807. COLONOSCOPY START: 812; END: 824.
[2022-04-29 08:32] VITALS: BP 108/63; PULSE 87; RESP 19; O2SAT 99
[2022-04-29 08:42] VITALS: BP 114/71; PULSE 82; RESP 22; O2SAT 100
[2022-04-29 08:52] VITALS: BP 118/76; PULSE 85; RESP 19; O2SAT 100
== END 2022-04-29 09:12 | disposition home or self-care (01) ==
PROVIDERS: PCP Internal Medicine; Visit Provider Internal Medicine Gastroenterology
PROC: 0DJ08ZZ Inspection of Upper Intestinal Tract, Via Natural or Artificial Opening Endoscopic (ICD-10-PCS; CPT 43235; principal; 2022-04-29 08:00)
DX: Z12.11 Encounter for screening for malignant neoplasm of colon (principal); R11.0 Nausea; R19.7 Diarrhea, unspecified; K22.89 Other specified disease of esophagus; E78.5 Hyperlipidemia, unspecified; K75.4 Autoimmune hepatitis; M35.00 Sjogren syndrome, unspecified; M32.9 Systemic lupus erythematosus, unspecified; L40.9 Psoriasis, unspecified; M19.90 Unspecified osteoarthritis, unspecified site; Z79.620 Long term (current) use of immunosuppressive biologic
CPT/HCPCS: 43239; 45380; 88305; 88342; J0290; J1580; J2704; J3010; J7120

== ENCOUNTER 2022-10-08 11:16 | Outpatient (CLI) | payer BC, SELFPAY ==
--- NOTE | ~2022-10-08 | MR_ITS ---
EXAMINATION: MR breast BI wo/w con INDICATION: High-risk breast cancer screening TECHNIQUE: Axial VIBRANT pre and dynamic post contrast, Sagittal VIBRANT post contrast, Axial T2 STIR ASSET COMPARISON: Multiple prior mammograms and ultrasounds dating back to 04/27/2017 CONTRAST: Multihance, 12 cc BREAST COMPOSITION: Extreme fibroglandular tissue FINDINGS: RIGHT BREAST: There is mild background parenchymal enhancement. There is a 10 mm x 10 mm x 8 mm T1 is ointense, T2 hypointense oval, circumscribed mass in the posterior third of the upper outer quadrant of the breast at the 11:00 location 6 cm from the nipple. The mass demonstrates heterogeneous interna l enhancement with fast initial phase enhancement and washout in the delayed phase. There is a 3 mm x 2 mm T1 and T2 isointense, oval, circumscribed mass in the anterior third of the upper outer quadran t of the breast at the 11:00 location 2.6 cm from the nipple central hypointensity on fat-suppressed and postcontrast images, suggestive of an intramammary lymph node. LEFT BREAST: There is mild background parenchymal enhancement. No abnormal enhancement is present aft er contrast administration. No pathologically enlarged axillary or internal mammary lymph nodes are i dentified. IMPRESSION: 1. Right breast findings as above. Given the interval since prior imaging, bilateral diagnostic mammo gram and right breast ultrasound are recommended. BI-RADS Category 0: Incomplete: Needs additional imaging evaluation. Reviewed, dictated and finalized at location A. IMPRESSION: 1. Right breast findings as above. Given the interval since prior imaging, bila teral diagnostic mammogram and right breast ultrasound are recommended. BI-RADS Category 0: Incomplete: Needs additional imaging evaluation.
== END 2022-10-08 11:17 | disposition home or self-care (01) ==
PROVIDERS: PCP Internal Medicine
DX: R92.2 Inconclusive mammogram (principal); Z91.89 Other specified personal risk factors, not elsewhere classified
CPT/HCPCS: 77049; A9577; C8908

== ENCOUNTER 2022-12-22 11:49 | Outpatient (CLI) | payer BC, SELFPAY ==
--- NOTE | ~2022-12-22 | MMUS_ITS ---
EXAMINATION: MM diagnostic jaleel BI w cristóbal, US breast BI complete HISTORY: 10 x 10 x 8 mm circumscribed mass in posterior third of upper outer quadrant of right breast at 11:00 position 6 cm from nipple on 10/08/2022 MRI breast examination. High risk patient. TECHNIQUE: Full field and spot ML, MLO and CC 3-D tomosynthesis images of both breasts were performed and synthetic 2-D images were generated. CAD analysis was submitted and interpreted. High resolution complete bilateral breast ultrasound examination including all 4 quadrants and subareolar areas was performed. COMPARISON: 10/08/2022 bilateral breast MRI examination 10/09/2021 bilateral screening mammogram and complete bilateral breast ultrasound examination BREAST PARENCHYMAL COMPOSITION: The breasts are extremely dense, which lowers the sensitivity of mamm ography. FINDINGS: MAMMOGRAPHIC FINDINGS: Possible circumscribed approximately 6 x 8 mm mass in the posterior upper outer right breast (coned c ompression MLO Tomosynthesis image 21/47). No reproducible suspicious mass of either breast is detected mammographically but the extremely dense fibroglandular stroma may obscure masses. No architectural distortion is evident. Occasional benign calcifications. No malignant calcification, skin thickening or retraction is detected. ULTRASOUND: There is dense fibroglandular stroma of both breasts. Right breast: 9:00 5 cm from nipple: 2 x 7 x 6.3 mm parallel circumscribed sonolucency with through transmission co nsistent with cyst 10:00 6 cm from nipple: Parallel circumscribed hypoechoic solid lesion measuring approximately 11 x 5 .4 x 12 mm, with through transmission, no internal vascularity. This has a benign appearance, likely a benign fibroadenoma. 11:00 2 cm from nipple: Parallel circumscribed 3.5 x 2.5 x 2.6 mm hypoechoic lesion without internal vascularity or posterior shadowing, likely benign. Left breast: No suspicious mass or shadowing, cyst or other significant sonographic finding is noted at the left b reast. IMPRESSION: 1. Benign findings 2. Routine annual mammographic screening is recommended, with additional MR breast imaging and/or ult rasound as clinically appropriate for this reportedly-risk breast patient. BI-RADS Category 2: Benign finding(s). Reviewed, dictated and finalized at location A. IMPRESSION: 1. Benign findings 2. Routine annual mammographic screening is recommended, with additional MR margarita ast imaging and/or ultrasound as clinically appropriate for this reportedly-ris k breast patient. BI-RADS Category 2: Benign finding(s).
== END 2022-12-22 11:50 | disposition home or self-care (01) ==
PROVIDERS: PCP Internal Medicine
DX: N63.10 Unspecified lump in the right breast, unspecified quadrant (principal); R93.89 Abnormal findings on diagnostic imaging of other specified body structures; Z80.3 Family history of malignant neoplasm of breast; Z91.89 Other specified personal risk factors, not elsewhere classified
CPT/HCPCS: 76641; 77062; 77066; G0279

== ENCOUNTER 2023-02-05 08:04 | Outpatient (CLI) | payer BC, SELFPAY ==
--- NOTE | 2023-02-05 09:21 | ECG_ITS ---
Measurements Intervals [place] Rate: 55 P: 69 HI: 189 QRS: 32 QRSD: 82 T: 63 QT: 394 QTc: 380 Interpretive Statements SINUS BRADYCARDIA RSR' IN V1 OR V2, PROBABLY NORMAL VARIANT DELAYED PRECORDIAL R/S TRANSITION BASELINE ARTIFACT- I, II, III, AVR, AVL, AVF BORDERLINE ECG COMPARED TO ECG 01/06/2022 12:30:16 SINUS BRADYCARDIA NOW PRESENT Electronically Signed On 02-05-2023 9:47:15 CDT by Hussain Rodriguez D.O.
[2023-02-05 10:00] LABS: Basophils Percent Auto 1.6 % (0.2-1.2); Eosinophils Absolute Auto 0.1 K/mm3 (0-0.3); Eosinophils Percent Auto 4.5 % (0-4.4); Hematocrit 38.5 % (37.0-47.0); Hemoglobin 12.2 g/dL (12.0-15.0); Immature Granulocyte Absolute 0.01 K/mm3 (0.00-0.031); Immature Granulocyte Percent A 0.4 % (0-0.5); Lymphocytes Absolute Auto 0.79 K/mm3 (0.9-3.2); Lymphocytes Percent Auto 32.1 % (18.3-44.2); Mean Corpuscular HGB Conc 31.7 g/dl (32-36); Mean Corpuscular Hemoglobin 31.6 pg (26-34); Mean Corpuscular Volume 99.7 fl (80-100); Mean Platelet Volume 8.2 fl (7.4-10.4); Monocytes Absolute Auto 0.4 K/mm3 (0.1-0.6); Monocytes Percent Auto 17.5 % (2.6-8.5); Neutrophils Absolute Auto 1.1 K/mm3 (1.3-6.7); Neutrophils Percent Auto 43.9 % (45.5-73.1); Platelet Count Result 149 k/mm3 (150-375); Red Blood Count 3.86 M/mm3 (4.2-5.4); Red Cell Distribution Width 12.3 % (11.5-14.5); White Blood Count 2.5 K/mm3 (4.5-10.0)
[2023-02-05 10:09] LABS: Albumin Level 4.5 g/dL (3.5-5.1); Anion Gap 6 mmol/L (8-16); Blood Urea Nitrogen 12 mg/dL (7-17); Calcium 9.4 mg/dL (8.4-10.2); Carbon Dioxide 31 mmol/L (22-30); Chloride 99 mmol/L (98-107); Estimated Glomerular Filt Rate > 60; Glucose 86 mg/dL (65-110); Potassium 3.8 mmol/L (3.4-5.0); Sodium 136 mmol/L (137-145)
[2023-02-05 10:13] LABS: Hemoglobin A1C 4.7 % (<5.7)
[2023-02-05 10:14] LABS: Partial Thromboplastin Time 30.2 SECONDS (22.3-36.8); Prothrombin Time 13.4 Seconds (11.1-14.7)
[2023-02-05 10:16] LABS: Urine Cotinine NEGATIVE
== END 2023-02-05 08:05 | disposition home or self-care (01) ==
PROVIDERS: Anesthesiology; PCP Internal Medicine; Visit Provider Orthopaedic Surgery
DX: M17.12 Unilateral primary osteoarthritis, left knee (principal); K75.4 Autoimmune hepatitis; Z01.818 Encounter for other preprocedural examination; R94.31 Abnormal electrocardiogram [ECG] [EKG]
CPT/HCPCS: 80048; 80307; 82040; 83036; 85025; 85610; 85730; 87081; 93005

== ENCOUNTER 2023-02-25 01:10 | Day surgery (SDC) | payer BC, SELFPAY ==
--- NOTE | 2023-02-05 08:53 | PC.NURSE ---
Report to the Outpatient Waiting Room, entrance under the green pavilion located off [facility], at time __1000 on date _02/25/23 . Planned Procedure Time: _1200 . Time changes happen often and if your time is changed the preop area will call you the afternoon before. - You and your visitor will be asked to self-screen and do not enter if you have any COVID symptoms. - A mask is optional within the hospital at this time. Patients may have clear liquids (water, carbonated beverages, clear teas, apple juice) until 3 hours prior to surgery with a maximum of 20 ounces. - No food from midnight until time of surgery - Infants may have breast milk until 4 hours before surgery, formula 6 hours prior to surgery. - Children will be allowed to drink immediately following surgery. If applicable, please bring a bottle or sippy cup to assist with drinking. Juice, water, soda, and popsicles are readily available. For infants on formula, please bring formula the day of surgery. Pacifiers are allowed. Take the following medications with a SIP of water the morning of surgery: ____METOPROLOL DO NOT STOP ANY OF YOUR OTHER PRESCRIPTION MEDICATIONS PRIOR TO SURGERY ?EXCEPT THE FOLLOWING Medications to discontinue per physician _PT STATES YARITZA LAST DOSE October HOLD PER DR COHEN, DICLOFENAC [address] OP[address] REYES LAST DOSE 02/17/23 AND ALL VITAMINS AND SUPPLEMENTS 7 DAYS PRE OP PER DR REYES TOTAL JOINT CLASS 02/11/23 AT 10 AM Please no make-up, nail costa rican, hairspray, perfume, deodorant, or body powder the day of surgery. No jewelry (including any body piercings) or valuables the day of surgery, leave them at home. Please take a shower or bath the night before, or the morning of, surgery with an antibacterial soap. Wear comfortable, loose fitting clothing. Children are encouraged to wear pajamas. - Jewelry must be removed prior to entering the operating room. Rings and piercings that are not removed may be cut off. - The hospital will not accept responsibility for valuables. - Please leave all valuables, including medications, at home the day of surgery. If you are going home after surgery, a licensed jinriksha driver must drive you home. - NO public transportation without another adult if you receive anesthesia. - We recommend that an adult stay with you for 24 hours following discharge. - We also recommend that you do not drive, make important decision, drink alcoholic beverages, or take any drugs that were not prescribed by your health care provider for at least 24 hours after your discharge time. For Pediatric surgeries, we recommend two adults accompany the child home. Follow any additional instructions given to you from your surgeon. If you or anyone in your household have experienced Covid symptoms in the past week, please notify your surgeon or the nurse liaison at the phone number below for possible testing. VERBAL AND WRITTEN instructions given to ___PATIENT and asked if any additional questions and then verbalized understanding. Patient advised to call surgeon office or pre surgery nurse liaison [phone] if any additional questions.
[2023-02-05 09:13] VITALS: BP 118/85; PULSE 70; RESP 18; TEMP 37.1; O2SAT 100; BMI 21.7
--- NOTE | 2023-02-23 17:05 | PM.IMHP ---
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 Patient been having symptoms in her knees for years. She has been treating knees nonsurgically with cortisone injections every 3 months. Last shots were over 4 months ago. Patient has reached a point where her symptoms are bothering her more regular basis and injections are not helping. She had a right knee replaced and in 2021 and is happy with the results. She would like to proceed with total knee arthroplasty on the left at this point. Review of Systems Review of Systems: All systems reviewed & are unremarkable except as noted in HPI and below PMFSH Past Medical History Medical History Autoimmune hepatitis Chronic nausea Degenerative arthritis of knee, bilateral Histoplasmosis In childhood, 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 Hyperlipidemia Inflammatory arthritis Lichen planus Persistent headaches Sjogrens syndrome Systemic lupus erythematosus Surgical History Surgical History History of arthroplasty of right knee (11/20/21) History of arthroscopy of right knee History of bilateral salpingo-oophorectomy (12/2018) History of cholecystectomy History of endometrial ablation History of tonsillectomy Family History Family History Father Family history of diabetes mellitus in first degree relative Patient's father is Mother Family history of malignant neoplasm of breast in first degree relative Family history of osteoarthritis Social History Social History Social History: Surrogate decision maker: Peewee Richards, spouse. Code status: Full code. 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 Meds Home Medications and Allergies Home Medications Medication Instructions Recorded Confirmed Type mycophenolate mofetil 500 mg 1,500 mg PO DAILY 12/05/19 02/09/23 History tablet (CellCept) cyclobenzaprine 10 mg tablet See Rx Instructions .Route 12/30/19 02/09/23 Rx .COMPLEX #90 tabs Women's Multivitamin 1 tablet PO DAILY 02/03/22 02/09/23 History acetaminophen 650 mg 1,300 mg PO Q12H PRN Pain 02/03/22 02/09/23 History tablet,extended release cholecalciferol (vitamin D3) 50 50 mcg PO DAILY 02/03/22 02/09/23 History mcg (2,000 unit) tablet (Vitamin D3) diclofenac sodium 75 mg 75 mg PO BID 02/03/22 02/09/23 History tablet,delayed release losartan 25 mg tablet 25 mg PO DAILY 04/14/22 02/09/23 History atorvastatin 20 mg tablet 20 mg PO HS 02/05/23 02/09/23 History empagliflozin 10 mg tablet 10 mg PO DAILY 02/05/23 02/09/23 History (Jardiance) metoprolol succinate 100 mg 100 mg PO DAILY 02/05/23 02/09/23 History tablet,extended release 24 hr risankizumab-rzaa 150 mg/mL 150 mg subcut Q3M 02/05/23 02/09/23 History subcutaneous pen injector (Skyrizi) spironolactone 25 mg tablet 25 mg PO DAILY 02/05/23 02/09/23 History Allergies Allergy/AdvReac Type Severity Reaction Status Date / Time vancomycin AdvReac Intermediate Redness of Verified 02/09/23 14:13 Skin Exam Narrative: 57-year-old female alert pleasant. She is 5 ft 8 and 143 lb. Left knee has mild effusion. Range of motion is from 7-140 degrees. She has moderate pain patellofemoral grind. Moderate tenderness over the medial joint line palp
[2023-02-25] VITALS (13 sets, daily range): BP systolic 98–139; BP diastolic 64–91; PULSE 68–81; RESP 12–16; TEMP 36.8–37.2; O2SAT 93–100; BMI 21.3
--- NOTE | ~2023-02-25 | XR_ITS ---
EXAM: [id number] DATE: 02/25/2023 16:35 HISTORY: LT TOTAL KNEE . COMPARISON: None available. FINDINGS: Normal mineralization. No fracture or dislocation. Left total knee arthroplasty, in good p osition. No concerning radiopaque foreign body. IMPRESSION: Expected postsurgical changes, status post left knee total arthroplasty, with no radiogra phic evidence of procedure or hardware related complication. Reviewed, dictated and finalized at location K. IMPRESSION: Expected postsurgical changes, status post left knee total arthropl asty, with no radiographic evidence of procedure or hardware related complicati on.
[2023-02-25] MEDS: diphenhydrAMINE HCl INJ 50 MG/ML VIAL IV PUSH ×2 (10:08→22:26)
[2023-02-25] MEDS: LACTATED RINGERS 1,000 ML 30 ML IV CONT ×2 (10:08→17:03)
[2023-02-25] MEDS: ACETAMINOPHEN 500 MG TABLET 1000 MG PO ×2 (10:08→18:44)
[2023-02-25] MEDS: VANCOMYCIN 1,000 MG/NS 250 ML 1,000 MG/250 ML BAG 200 MG IVPB (10:25)
--- NOTE | 2023-02-25 10:50 | WPDANESEPPF ---
Anes - Initial Pre Proc Eval Procedure: Operation Date: 02/25/23 12:00 Proposed Procedures p Left Total Knee Arthroplasty - Brodie Yañez MD Date/Time: 02/25/23 10:50 Surgeon: Brodie Yañez MD Pre Op Diagnosis: O.A. Left Knee Patient Data Age: 57 Gender: F Height: 1.74 m Weight: 64.7 kg Last Vital Signs Temp 37.0 C 02/25/23 09:42 Pulse 77 02/25/23 09:42 Resp 16 02/25/23 09:42 BP 139/91 H 02/25/23 09:42 Pulse Ox 100 02/25/23 09:42 O2 Del Method Room Air 02/25/23 09:42 Allergies Allergy/AdvReac Type Severity Reaction Status Date / Time vancomycin AdvReac Intermediate Redness of Verified 02/25/23 09:35 Skin Home Medications Medication Instructions Recorded Confirmed Type mycophenolate mofetil 500 mg 1,500 mg PO DAILY 12/05/19 02/25/23 History tablet (CellCept) cyclobenzaprine 10 mg tablet See Rx Instructions .Route 12/30/19 02/25/23 Rx .COMPLEX #90 tabs Women's Multivitamin 1 tablet PO DAILY 02/03/22 02/25/23 History acetaminophen 650 mg 1,300 mg PO Q12H PRN Pain 02/03/22 02/25/23 History tablet,extended release cholecalciferol (vitamin D3) 50 50 mcg PO DAILY 02/03/22 02/25/23 History mcg (2,000 unit) tablet (Vitamin D3) diclofenac sodium 75 mg 75 mg PO BID 02/03/22 02/25/23 History tablet,delayed release losartan 25 mg tablet 25 mg PO DAILY 04/14/22 02/25/23 History atorvastatin 20 mg tablet 20 mg PO HS 02/05/23 02/25/23 History empagliflozin 10 mg tablet 10 mg PO DAILY 02/05/23 02/25/23 History (Jardiance) metoprolol succinate 100 mg 100 mg PO DAILY 02/05/23 02/25/23 History tablet,extended release 24 hr risankizumab-rzaa 150 mg/mL 150 mg subcut Q3M 02/05/23 02/25/23 History subcutaneous pen injector (Pradeep) spironolactone 25 mg tablet 25 mg PO DAILY 02/05/23 02/25/23 History Patient hx anesthesia problems: none Family hx anesthesia problems: none Results Review: All pre-operative results and documents have been reviewed as part of the pre-operative evaluation. [facility] Past Medical History Medical History Autoimmune hepatitis Chronic nausea Degenerative arthritis of knee, bilateral Histoplasmosis In childhood, 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 Hyperlipidemia Inflammatory arthritis Lichen planus Persistent headaches Sjogrens syndrome Systemic lupus erythematosus Surgical History Surgical History History of arthroplasty of right knee (11/20/21) History of arthroscopy of right knee History of bilateral salpingo-oophorectomy (12/2018) History of cholecystectomy History of endometrial ablation History of tonsillectomy Family History Family History Father Family history of diabetes mellitus in first degree relative Patient's father is Mother Family history of malignant neoplasm of breast in first degree relative Family history of osteoarthritis Social History Social History Social History: Surrogate decision maker: Peewee Richards, spouse. Code status: Full code. 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
--- NOTE | 2023-02-25 11:44 | WPDANESEPPF ---
Anes - Initial Pre Proc Eval Procedure: Operation Date: 02/25/23 12:00 Proposed Procedures p Left Total Knee Arthroplasty - Brodie Yañez MD Date/Time: 02/25/23 11:44 Surgeon: Brodie Yañez MD Pre Op Diagnosis: O.A. Left Knee Patient Data Age: 57 Gender: F Height: 1.74 m Weight: 64.7 kg Last Vital Signs Temp 37.0 C 02/25/23 09:42 Pulse 77 02/25/23 09:42 Resp 16 02/25/23 09:42 BP 139/91 H 02/25/23 09:42 Pulse Ox 100 02/25/23 09:42 O2 Del Method Room Air 02/25/23 09:42 Allergies Allergy/AdvReac Type Severity Reaction Status Date / Time vancomycin AdvReac Intermediate Redness of Verified 02/25/23 09:35 Skin Home Medications Medication Instructions Recorded Confirmed Type mycophenolate mofetil 500 mg 1,500 mg PO DAILY 12/05/19 02/25/23 History tablet (CellCept) cyclobenzaprine 10 mg tablet See Rx Instructions .Route 12/30/19 02/25/23 Rx .COMPLEX #90 tabs Women's Multivitamin 1 tablet PO DAILY 02/03/22 02/25/23 History acetaminophen 650 mg 1,300 mg PO Q12H PRN Pain 02/03/22 02/25/23 History tablet,extended release cholecalciferol (vitamin D3) 50 50 mcg PO DAILY 02/03/22 02/25/23 History mcg (2,000 unit) tablet (Vitamin D3) diclofenac sodium 75 mg 75 mg PO BID 02/03/22 02/25/23 History tablet,delayed release losartan 25 mg tablet 25 mg PO DAILY 04/14/22 02/25/23 History atorvastatin 20 mg tablet 20 mg PO HS 02/05/23 02/25/23 History empagliflozin 10 mg tablet 10 mg PO DAILY 02/05/23 02/25/23 History (Jardiance) metoprolol succinate 100 mg 100 mg PO DAILY 02/05/23 02/25/23 History tablet,extended release 24 hr risankizumab-rzaa 150 mg/mL 150 mg subcut Q3M 02/05/23 02/25/23 History subcutaneous pen injector (Pradeep) spironolactone 25 mg tablet 25 mg PO DAILY 02/05/23 02/25/23 History Laboratory Tests 02/25/23 10:02 Blood Type O Positive Antibody Screen Negative Patient hx anesthesia problems: none Family hx anesthesia problems: none Results Review: All pre-operative results and documents have been reviewed as part of the pre-operative evaluation. 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 Hyperlipidemia Inflammatory arthritis Lichen planus Persistent headaches Sjogrens syndrome Systemic lupus erythematosus Surgical History Surgical History History of arthroplasty of right knee (11/20/21) History of arthroscopy of right knee History of bilateral salpingo-oophorectomy (12/2018) History of cholecystectomy History of endometrial ablation History of tonsillectomy Family History Family History Father Family history of diabetes mellitus in first degree relative Patient's father is Mother Family history of malignant neoplasm of breast in first degree relative Family history of osteoarthritis Social History Social History Social History: Surrogate decision maker: Peewee Richards, spouse. Code status: Full code. 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 Spiritual care concerns: No Anes - Eval Final PreProcedure Day of Procedure 02/25/23 11:44 Patient weight: normal Heart: regular rate and rhythm Lungs: clear to auscultation Airway: Mallampati scale class II Neurological: alert and oriented Last
[2023-02-25] MEDS: TRANEXAMIC ACID 1,000MG/ISO100 1,000 MG/100 ML BAG 200 MG IVPB (11:48)
--- NOTE | 2023-02-25 11:51 | WPDHPUPDATE1 ---
History and Physical Update Update Date/Time: 02/25/23 11:51 History and Physical has been reviewed, including an updated exam of the patient. There are NO changes in the patient's condition. Risks, benefits, and alternatives have been discussed and questions answered. Patient agrees to proceed with procedure.
[2023-02-25] MEDS: ceFAZolin 2 GM/D5W 50 ML 2 GM/50 ML BAG IVPB (12:10)
--- NOTE | 2023-02-25 12:10 | SUR.PREOP ---
Patient began to have redness noted to her jaw and ears, anaesthesia at bedside and aware of allergy. Patient pretreated with Benadryl and Dr Yañez is aware.
[2023-02-25] MEDS: ceFAZolin SODIUM 1 GM VIAL 3 GM (13:11)
[2023-02-25] MEDS: TRANEXAMIC ACID 1,000 MG/10 ML AMPUL 1000 MG IV PUSH (14:46)
[2023-02-25] MEDS: ceFAZolin SODIUM 1 GM VIAL 2 GM IV PUSH (14:46)
--- NOTE | 2023-02-25 15:54 | W.PM.PROC2 ---
Procedure Note - Detailed Date of Procedure 02/25/23 Pre-op Diagnosis O.A. Left Knee Post-op Diagnosis Same Procedure Performed Left total knee arthroplasty Surgeon Brodie Yañez MD Cloth Shrinking Supervisor Yazan Anesthesia General Description of Procedure Patient was brought to the operating room and general anesthesia was administered. She received 2 g Ancef weight based vancomycin 1 g of tranexamic acid preoperatively. The left leg was prepped draped usual fashion. Under anesthesia she had about a 6 degree flexion contracture. Limb was exsanguinated tourniquet elevated to 250 mmHg. A 7 in longitudinal midline incision was used in a vastus medialis splitting approach utilized splitting the vastus medialis at superior pole of patella. We immediately sought for removed all the loose bodies in the suprapatellar pouch and lateral recess. We carefully made sure there were no un detected loose bodies by thorough palpation and inspection. Suprapatellar and infrapatellar fat pads were excised the quadriceps synovectomy carried out. The patella was severely arthritic and scalloped. The thickness at the median ridge was 20 mm which would have been adequate for resurfacing however the lateral wear was such that with a 31 mm patellar trial superimposed, the thickness at the lateral facet which would be under the area covered by the patella was only 8 mm. This would have necessitated cementing the patella with approximately the lateral 1/4 of the patellar button floating on cement instead of with contact with bone which would be at risk for early failure and higher risk for patellar fracture to the thinness of the patella. Therefore we carefully contoured the patella to optimize tracking and avoid high areas. A lateral facetectomy was performed. Osteophytes removed. Ridges were smoothed. A guide rudi was inserted on the femoral canal after aspiration of canal contents using the 5 degree valgus cutting bushing 9 mm of bone removed the distal femur. This removed about 7 from lateral side. The medial compartment had moderate medial cup arthritis. There were very large osteophytes along the medial femoral condyle. Next the tibial plateau was cut. Our initial cut was a bit shallow and additional 2 mm was removed which brought us just through the articular cartilage posteriorly. Meniscal remnants were excised and the PCL recessed. At 90? flexion gap was 8 mm medially 11 mm laterally. The femoral sizing guide was applied the distal femur set at 4? of external rotation which matched [place] line and posterior referencing pinholes were placed. The size 62.5 vanguard cutting block was applied AP and chamfer cuts were made. This gave a nice fit anterior to posterior with about a mm of overhang medial to lateral. Next the tibia was sized to a size 67 which fit line to line anteromedial to posterolateral. Bone quality was excellent. This was punched and we trialed with the and with this there was nice soft tissue tension and stability at 90? with a mm of medial and mm lateral opening to valgus and varus stress at 90. [place] flexion was to 145. However the knee lacked about 7 or 8? of extension. There was a mm of play medially no play laterally. Additional 2 mm of bone removed the distal femur chamfer cuts revisited. We did a very minimal central capsular release and trialed and at this time the knee came very close to full extension with a barely positive bounce. There was 2 mm of medial opening in this position as well as 2 mm of lateral opening. Posterior capsular release was performed centrally and minimal cartilage protruding proximal to the posterior condylar portion of the femoral trial removed and smoothed. On repeat trialing the knee came out to full extension with negative bounce. 2 mm medial 1 mm lateral opening excellent anterior drawer stability throughout range of motion and central patellar tracking which tracked smoothly. We towel clip the arthrotomy and
[2023-02-25] MEDS: KETOROLAC 15 MG/ML VIAL (*BKC) IV PUSH ×2 (16:14→22:25)
[2023-02-25] MEDS: ONDANSETRON INJ 4 MG/2 ML VIAL IV PUSH ×2 (16:28→21:21)
[2023-02-25] MEDS: fentaNYL CITRATE INJ (*CRX) 100 MCG/2 ML VIAL 25 MCG IV PUSH ×8 (16:29→17:14)
--- NOTE | 2023-02-25 16:41 | SUR.PHASEI ---
1635 - MD Yañez contacted with request for ordered Benadryl with Vancomycin dose for floor. New orders for floor for RN To give 50mg Benadryl IVP 15 minutes prior to ordered vancomycin. See transfer order.
[2023-02-25] MEDS: HYDROmorphone HCL INJ (*CRX) 1 MG/ML SYR 0.5 MG IV PUSH ×2 (17:37→17:49)
--- NOTE | 2023-02-25 18:25 | ADMGEN ---
This patient, Ronit Richards, was admitted to Medical Room 340-01. Patient/family oriented to hospital policies and general routines including ID bracelet, bed and alarms, visiting hours, pain management, procedures, bathroom and other care routines, personal items, smoking policy, room service/diet, and visiting hours. Information on how to activate the Rapid Response Team has been discussed. Patient/Family are encouraged to report perceived risks to care and to ask questions if they do not understand what they are told or what they should do.
[2023-02-25] MEDS: oxyCODONE HCL (*CRX) 5 MG TAB IR PO ×2 (18:44→22:25)
[2023-02-25] MEDS: SENNA/DOCUSATE SODIUM TABLET 2 TAB PO (18:44)
--- NOTE | 2023-02-25 19:48 | ECG_ITS ---
Measurements Intervals [place] Rate: 65 P: 69 [place]: 188 QRS: 41 QRSD: 84 T: 73 QT: 406 QTc: 423 Interpretive Statements SINUS RHYTHM WITH OCCASIONAL VENTRICULAR PREMATURE COMPLEXES NONSPECIFIC T-WAVE ABNORMALITY COMPARED TO ECG 02/05/2023 09:45:34 SINUS RHYTHM NOW PRESENT Electronically Signed On 02-26-2023 12:42:15 CDT by Gustavo Diaz M.D.
[2023-02-25] MEDS: ATORVASTATIN 20 MG TABLET PO (20:23)
[2023-02-25] MEDS: ceFAZolin 1 GM/NS 50 ML 1 GM/50 ML BAG IVPB (20:23)
[2023-02-25 20:40] LABS: Glucose Point of Care 108 mg/dl (65-105)
[2023-02-25] MEDS: VANCOMYCIN 1,000 MG/NS 250 ML 1,000 MG/250 ML BAG 125 MG IVPB (22:45)
[2023-02-26] VITALS (7 sets, daily range): BP systolic 96–109; BP diastolic 54–59; PULSE 68–86; RESP 16–18; TEMP 35.8–37.7; O2SAT 98–100
[2023-02-26] MEDS: ACETAMINOPHEN 500 MG TABLET 1000 MG PO ×3 (00:57→13:20)
[2023-02-26] MEDS: oxyCODONE HCL (*CRX) 5 MG TAB IR PO ×4 (03:30→15:47)
[2023-02-26] MEDS: ceFAZolin 1 GM/NS 50 ML 1 GM/50 ML BAG IVPB ×2 (04:00→13:19)
[2023-02-26 05:43] LABS: Basophils Percent Auto 0.2 % (0.2-1.2); Hematocrit 29.5 % (37.0-47.0); Hemoglobin 9.4 g/dL (12.0-15.0); Immature Granulocyte Absolute 0.03 K/mm3 (0.00-0.031); Immature Granulocyte Percent A 0.3 % (0-0.5); Lymphocytes Absolute Auto 1.24 K/mm3 (0.9-3.2); Lymphocytes Percent Auto 12.4 % (18.3-44.2); Mean Corpuscular HGB Conc 31.9 g/dl (32-36); Mean Corpuscular Hemoglobin 31.2 pg (26-34); Mean Platelet Volume 8.5 fl (7.4-10.4); Monocytes Absolute Auto 0.9 K/mm3 (0.1-0.6); Monocytes Percent Auto 9.1 % (2.6-8.5); Neutrophils Absolute Auto 7.8 K/mm3 (1.3-6.7); Platelet Count Result 212 k/mm3 (150-375); Red Blood Count 3.01 M/mm3 (4.2-5.4); Red Cell Distribution Width 11.9 % (11.5-14.5)
[2023-02-26 06:01] LABS: Anion Gap 2 mmol/L (8-16); Blood Urea Nitrogen 11 mg/dL (7-17); Calcium 8.3 mg/dL (8.4-10.2); Carbon Dioxide 29 mmol/L (22-30); Chloride 104 mmol/L (98-107); Estimated CRCL calculation 77 ml/min; Estimated Glomerular Filt Rate > 60; Glucose 98 mg/dL (65-110); Potassium 3.6 mmol/L (3.4-5.0); Sodium 135 mmol/L (137-145)
[2023-02-26] MEDS: diphenhydrAMINE HCl CAP 25 MG CAPSULE PO (06:56)
--- NOTE | 2023-02-26 07:19 | PM.PNORT ---
Subjective Subjective Date/Time Seen: 02/26/23 07:19 Interval history: Postop day 1 patient is alert. She is afebrile vital signs are stable. Pain is well controlled. Dressing is dry and intact. She has some mild swelling in the knee with some mild ecchymosis. Neurovascularly she is intact. She was up to the restroom overnight. She has been having some reaction to the vanc with red face, she has been getting her Benadryl prior to in fusion. She has 1 more dose today. Morning labs are noted. At this point patient is doing fairly well. She is comfortable and is anxious to go home. We will have her work with therapy this morning and again this afternoon once IV antibiotics have been completed she will be discharged home Objective Data Vital Signs Vital Signs: Vital Signs - 24 hr 02/25/23 09:42 02/25/23 16:17 02/25/23 16:30 Temperature 37.0 C 37.2 C Pulse Rate 77 80 77 Respiratory Rate 16 16 16 Blood Pressure 139/91 H 112/71 105/68 Pulse Oximetry 100 100 98 Oxygen Delivery Room Air Simple Face Mask Room Air Oxygen Flow Rate 10 02/25/23 16:45 02/25/23 17:00 02/25/23 17:15 Temperature Pulse Rate 78 81 72 Respiratory Rate 12 13 14 Blood Pressure 98/64 L 121/75 100/81 Pulse Oximetry 93 100 100 Oxygen Delivery Room Air Room Air Room Air Oxygen Flow Rate 02/25/23 17:30 02/25/23 17:45 02/25/23 18:00 Temperature Pulse Rate 76 71 68 Respiratory Rate 16 15 14 Blood Pressure 123/83 99/69 L 116/83 Pulse Oximetry 100 100 100 Oxygen Delivery Room Air Room Air Room Air Oxygen Flow Rate 02/25/23 18:11 02/25/23 18:38 02/25/23 20:29 Temperature 36.8 C 37.0 C Pulse Rate 72 69 72 Respiratory Rate 16 16 16 Blood Pressure 111/73 123/71 116/75 Pulse Oximetry 96 100 100 Oxygen Delivery Room Air Oxygen Flow Rate 02/25/23 20:00 02/26/23 00:00 02/26/23 04:08 Temperature 36.8 C Pulse Rate 75 68 74 Respiratory Rate 16 Blood Pressure 99/59 L Pulse Oximetry 98 Oxygen Delivery Oxygen Flow Rate 02/26/23 04:00 Temperature Pulse Rate 86 Respiratory Rate Blood Pressure Pulse Oximetry Oxygen Delivery Oxygen Flow Rate Intake/Output Intake/Output: Intake & Output 02/23/23 02/24/23 02/25/23 02/26/23 23:59 23:59 23:59 23:59 Intake Total 1800 300 Output Total 700 1400 Balance 1100 -1100 Meds/Results Medications: Active Medications Generic Name Dose Route Start Last Admin Trade Name Freq PRN Reason Stop Dose Admin Acetaminophen 1,000 mg 02/25/23 19:00 02/26/23 06:48 Acetaminophen 500 Mg Tablet PO 1,000 mg Q6H JACOB Administration Apixaban 2.5 mg 02/26/23 09:00 Apixaban 2.5 Mg Tablet PO Q12HR JACOB Atorvastatin Calcium 20 mg 02/25/23 21:00 02/25/23 20:23 Atorvastatin 20 Mg Tablet PO 20 mg HS JACOB Administration Cefdinir 300 mg 02/26/23 21:00 Cefdinir 300 Mg Capsule PO Q12HR JACOB Cyclobenzaprine HCl 0 mg 02/25/23 18:18 Cyclobenzaprine Hcl 10 Mg Tablet PO HS PRN MUSCLE SPASM Dextrose 12.5 gm 02/25/23 19:49 Dextrose 50% 25 Gm/50 Ml Syringe IV PUSH PRN PRN Hypoglycemia Protocol Diphenhydramine HCl 50 mg 02/25/23 21:00 02/25/23 22:26 Diphenhydramine Hcl Inj 50 Mg/Ml Vial IV PUSH 50 mg Q12H JACOB Administration Empagliflozin 10 mg 02/26/23 09:00 Empagliflozin 10 Mg Tablet PO DAILY JACOB Glucagon 1 mg 02/25/23 19:49 Glucagon For Inj 1 Mg Vial IM PRN PRN Hypoglycemia Protocol Glucose 15 gm 02/25/23 19:49 Glucose Oral Gel 15 Gm Of Glucse In 37.5 Gm Tube PO PRN PRN Hypoglycemia Protocol Cefazolin Sodium 1 gm in 50 mls @ 100 mls/hr 02/25/23 20:00 02/26/23 04:00 Ancef 1 Gm/Ns 50 Ml IVPB 02/26/23 12:29 100 mls/hr Q8H JACOB Administration Vancomycin HCl 1,000 mg in 250 mls @ 150 mls/hr 02/25/23 23:00 02/25/23 22:45 Vancomycin 1,000 Mg/Ns 250 Ml IVPB 02/26/23 12:39 125 mls/hr Q12H JACOB Administrati
--- NOTE | 2023-02-26 07:24 | PM.DS ---
DS: Admitting Diagnosis Discharge Date 02/26 Admitting Diagnosis Left knee DJD DS: Discharge Diagnosis Discharge Diagnosis (1) Left knee DJD: Code(s): M17.12 - Unilateral primary osteoarthritis, left knee Status: Acute DS: Summary Hospital Course Hospital Course: 57-year-old female underwent left total knee arthroplasty on 02/25. Underwent the procedure without complications. Postoperatively she has been afebrile vital signs are stable. Neurovascularly she is intact. Her dressing is dry and intact. She is on Eliquis for DVT prophylaxis. Pain is well controlled with scheduled Tylenol as well as oxycodone 5 mg. She was on detail assembler postoperatively without any ectopy noted. Overall patient has done well. She will be discharged home on 02/26. She was advised to keep leg elevated home prevent swelling but do her exercises of bending and straightening the knee on an hourly basis. She has outpatient therapy starting next Thursday. She will go home with a 2 week course of Omnicef. She also go home with Senokot and MiraLax. Patient was advised any questions or concerns she is to call the office otherwise we will see her at her appointments Time Spent with Patient Time attestation: Total time spent providing and/or coordinating discharge services: DS: Data Data Completed and Pending Labs on day of discharge: Labs from last 24 hours 02/26/23 02/25/23 02/25/23 05:10 20:32 10:02 WBC 10.0 RBC 3.01 L Hgb 9.4 L Hct 29.5 L MCV 98.0 MCH 31.2 MCHC 31.9 L RDW 11.9 Plt Count 212 MPV 8.5 Immature Gran % (Auto) 0.3 Neut % (Auto) 78.0 H Lymph % (Auto) 12.4 L [place] % (Auto) 9.1 H Eos % (Auto) 0.0 Baso % (Auto) 0.2 Lymph # (Auto) 1.24 [place] # (Auto) 0.9 H Eos # (Auto) 0.0 Baso # (Auto) 0.0 Abs Immat Gran (auto) 0.03 Absolute Neuts (auto) 7.8 H Absolute Nucleated RBC 0.0 Nucleated RBC % 0.0 Sodium 135 L Potassium 3.6 Chloride 104 Carbon Dioxide 29 Anion Gap 2 L BUN 11 Creatinine 0.70 Estim Creat Clear Calc 77 Estimated GFR > 60 Glucose 98 POC Capillary Glucose 108 H Calcium 8.3 L Blood Type O Positive Antibody Screen Negative Discharge Plan Discharge Patient Disposition: Home, Self-Care Discharge Instructions: BRODIE YAÑEZ M.D [facility], [place] [id number] [address] [address] POST-OPERATIVE DISCHARGE INSTRUCTIONS TOTAL KNEE ARTHROPLASTY 1. When resting, lie on back with leg elevated above heart to minimize swelling. Significant swelling could indicate a blood clot and if this occurs call the office (or go to the ER) to have a venous ultrasound. 2. Do exercise 5 times a day. 3. Do not sit with leg down except for meals. 4. Wound Care: Nursing will give additional dressings at discharge. Patient to change dressing at home 1 week from surgery, then maintain until seen in office. 5. May shower with dressing in place. 6. Follow weight bearing status instructions. IMPORTANT: Remember not to sit in the chair for more than 30 minutes at a time. As a rule, during the first 14 days after surgery, only sit in the chair to work on the chair knee bending stretch exercise, for meals or for use of the restroom. Sitting in the chair promotes significant swelling in the knee and leg which will make the knee stiff and more painful and which simulates having a blood clot in the veins of the leg. If this type of significant diffuse swelling occurs, an ultrasound at the hospital will be necessary to rule out a blood clot. Be up walking around with the walker for a few minutes every hour while awake and then rest laying on your back on the couch or in bed with your leg elevated on cushions or pillows. Do not rest in the chair. Stand Alone Forms: General Discharge Instructions Follow-up/Referrals: Brodie Yañez MD [Phys
[2023-02-26] MEDS: EMPAGLIFLOZIN 10 MG TABLET PO (08:20)
[2023-02-26] MEDS: CHOLECALCIFEROL 1,000 UNITS TABLET 2000 UNITS PO (08:20)
[2023-02-26] MEDS: LOSARTAN POTASSIUM 25 MG TABLET PO (08:20)
[2023-02-26] MEDS: polyethylene glycoL 3350 17 GM POWD.PACK PO (08:20)
[2023-02-26] MEDS: SENNA/DOCUSATE SODIUM TABLET 2 TAB PO (08:20)
[2023-02-26] MEDS: APIXABAN 2.5 MG TABLET PO (08:21)
[2023-02-26] MEDS: SPIRONOLACTONE 25 MG TABLET PO (08:21)
[2023-02-26] MEDS: METOPROLOL SUCCINATE EXT REL 100 MG TABCR PO (08:21)
--- NOTE | 2023-02-26 08:34 | PM.IMCN ---
Assessment and Plan Assessment and plan (1) History of total left knee replacement: Code(s): Z96.652 - Presence of left artificial knee joint Status: Acute (2) Immunosuppressed status: Code(s): D84.9 - Immunodeficiency, unspecified Status: Acute (3) Nonischemic cardiomyopathy: Code(s): I42.8 - Other cardiomyopathies Status: Acute Plan Patient is been stable postop. Patient is having complaints of red man syndrome and does feel appear flushed on exam. Red man syndrome is a type of anaphylactoid reaction but is managed will I slowing infusion rate. Despite vancomycin be given slowly in the patient receiving Benadryl she is still having some symptoms of flushing and itching. The vancomycin is systemic for 12 hours. Likely the effect of the Benadryl has already worn off at the 6 hour rekha. Will give additional doses of Benadryl. She is unsure if she wants to have the final dose of vancomycin or not given that her flushing seems worse after the 2nd dose of vancomycin than compared to 5th 1st. Patient reports the plan is for to go home on 2 weeks of antibiotics help prevent postoperative infection. She reports that the last time she was on antibiotics postoperatively for 1 week she had significant difficulty with postoperative diarrhea for almost a month. She is quite concerned about this. Her is planning to get her some Activia. Shared he takes probiotics on a regular baseline. I did discuss the bioavailability and refrigerated pre biotics verses other types of pre biotics. There other antibiotics a cover for similar antibiotic spectrum. However do not know the research are guidelines regarding success and for venting postoperative infections. Will defer antibiotic management to primary service. Patient does have history of nonischemic cardiomyopathy with frequent PVCs. Patient has not had any other symptoms. She appears euvolemic. Will continue patient's home metoprolol, losartan, Jardiance, spironolactone and atorvastatin. Past medical records were reviewed. Plan of care was discussed. Telemetry was reviewed Patient is medically clear for discharge when okay with primary service. Hospitalist service will sign off. HPI Data of Consult Consult date: 02/27/23 Requesting Physician: Brodie Yañez MD Primary Care Provider: Reginaldo Bruno, Consult Narrative Narrative: Ronit Richards is a 57 year old female with a complex past medical history including psoriatic arthritis versus rheumatoid arthritis on chronic immunosuppressive therapy, nonischemic cardiomyopathy, essential hypertension and suspected ulcerative colitis who presented to the hospital for planned left total knee arthroplasty. Patient underwent left total knee arthroplasty yesterday and has had an uncomplicated postoperative course. She reports that her pain is moderate but controlled with oral pain medications. She has been up and walking per E usual postoperative routine. She is on vancomycin to help reduce risk of postoperative infection given her immunosuppressed state. She however has history of red man syndrome. She is receiving Benadryl for her red man syndrome. She reports that she has not slept much she thinks this may be due to the Benadryl. She has been having of warm and flushed sensation to her cheeks face and ears. She reports feeling slightly itchy to her arms. She is unsure if she wants to continue with the 3rd dose of vancomycin that is planned before she is discharged afternoon. Encouraged her to discuss this with the orthopedic surgeon. The patient's glucoses have been stable overnight. She denies any nausea or vomiting. She is noted to have several frequent PVCs. This is not unusual for. She has not had any other rhythm issues. She had a small bowel movement the day before prior to surgery. She has been voiding without difficulty. Review of Systems Review of Systems: 12 systems were
--- NOTE | 2023-02-26 10:23 | PC.NURSE ---
Patient declines to see cardiology at this time and consultation order was discontinued. Patient was removed from telemetry this am after a verbal order was given to Liquor Grinder Mill Operator by [facility] when he was on the floor rounding.
[2023-02-26] MEDS: diphenhydrAMINE HCl INJ 50 MG/ML VIAL IV PUSH (10:46)
[2023-02-26] MEDS: VANCOMYCIN 1,000 MG/NS 250 ML 1,000 MG/250 ML BAG 125 MG IVPB (11:05)
[2023-02-26] MEDS: mycophenolate mofetiL 250 MG CAPSULE 1500 MG PO (11:15)
--- NOTE | 2023-02-26 14:00 | WPDANESPN ---
Anes - Prog Note Post-Op Date/Time: 02/26/23 14:00 Cardiovascular status: normal Respiratory status: normal Airway patency: baseline Mental status: baseline Post-Op hydration status: normal Vital Signs: Last Vital Signs Temp 35.8 C L 02/26/23 08:31 Pulse 75 02/26/23 08:31 Resp 16 02/26/23 08:31 BP 109/57 L 02/26/23 08:31 Pulse Ox 100 02/26/23 08:31 O2 Del Method Room Air 02/26/23 08:23 O2 Flow Rate 10 02/25/23 16:17 Pain Score (VAS): 07/04 I/O: Intake & Output 02/25/23 02/26/23 02/26/23 23:59 07:59 15:59 Intake Total 1400 600 240 Output Total 700 1400 1600 Balance 700 800 -1360 Laboratory Tests 02/26/23 05:10 02/26/23 05:10 02/25/23 02/26/23 20:32 05:10 WBC 10.0 RBC 3.01 L Hgb 9.4 L Hct 29.5 L MCV 98.0 MCH 31.2 MCHC 31.9 L RDW 11.9 Plt Count 212 MPV 8.5 Immature Gran % (Auto) 0.3 Neut % (Auto) 78.0 H Lymph % (Auto) 12.4 L [place] % (Auto) 9.1 H Eos % (Auto) 0.0 Baso % (Auto) 0.2 Lymph # (Auto) 1.24 [place] # (Auto) 0.9 H Eos # (Auto) 0.0 Baso # (Auto) 0.0 Abs Immat Gran (auto) 0.03 Absolute Neuts (auto) 7.8 H Absolute Nucleated RBC 0.0 Nucleated RBC % 0.0 Sodium 135 L Potassium 3.6 Chloride 104 Carbon Dioxide 29 Anion Gap 2 L BUN 11 Creatinine 0.70 Estim Creat Clear Calc 77 Estimated GFR > 60 Glucose 98 POC Capillary Glucose 108 H Calcium 8.3 L Post-procedural complaints: none Patient Feedback: Patient satisfied with anesthetic care. Other Findings: Pt feeling flushed and nauseated after Vancomyacin IV dose
--- NOTE | 2023-02-26 15:47 | PCPTNOTE ---
Attempted to see patient for PT, however patient declined due to not feeling well at this time and anticipated discharge.
--- NOTE | 2023-02-26 15:58 | PM.IMPN ---
Progress Note: A&P Assessment and Plan (1) History of total left knee replacement: Code(s): Z96.652 - Presence of left artificial knee joint Status: Acute Assessment and Plan: POD 1 Left total knee arthroplasty (2) Immunosuppressed status: Code(s): D84.9 - Immunodeficiency, unspecified Status: Acute Assessment and Plan: On Cellcept. Multiple immune system problems (3) Nonischemic cardiomyopathy: Code(s): I42.8 - Other cardiomyopathies Status: Acute Assessment and Plan: history of heart failure, stable per presurgical ECHO (4) Medication reaction: Code(s): T50.905A - Adverse effect of unspecified drugs, medicaments and biological substances, initial encounter Status: Acute Assessment and Plan: Hypotensive episode after third dose of vancomycin. Allergy updated to increase severity of problem and add new reaction. Plan Patient declined IV fluids and still wants to discharge despite reaction after vancomycin infusion leading to low blood pressure. Time Spent With Patient Time with patient: 25 - 35 minutes Subjective Date/time seen: 02/26/23 15:58 Interval history: Patient was admitted after left knee replacement and has history of immune system problems for which she takes immunosuppressants. Orthopedics required patient to get 3 doses of IV vancomycin before discharge. Patient was premedicated but still had reactions to each dose, the last dose being the worst. Patient reports red skin, palpitations, fatigue and left knee swelling/pain that worsened with recent dose of vancomycin. Blood pressure had dropped but has started to rebound since finishing vancomycin dose. I suggested IV fluids but patient did not want to do so due to history of heart failure. She states she still feels lousy but still wants to try to go home tonight. She has ambulated to the bathroom since this event and did not feel orthostatic. Review of Systems Review of Systems: All systems reviewed & are unremarkable except as noted in HPI and below Exam Narrative: Weight 64.7 kg BMI 21.4 Const: Other: Well-developed, well-nourished, appears stated age HENMT: Other: Mucous membranes are moist, no oral pharyngeal erythema, pupils are equal and reactive Eyes: Other: Pupils are equal and reactive, no scleral icterus Neck: Other: No JVD, no lymphadenopathy, trachea Resp: Other: Clear to auscultation bilaterally, no increased work of breathing Cardio: Other: Regular rate, irregular rhythm with every third beat premature then slight compensatory pause, patient has history of recent bigeminy and trigeminy--felt to be in trigeminy now with all beats perfusing, 2+ bilateral radial and pedal pulses GI: Other: Soft, nontender, nondistended, positive bowel sounds Skin: Other: No jaundice, no pallor Neuro: Other: Alert oriented, speech is clear, no facial asymmetry, no localizing neurologic deficits noted on limited exam Extrem: Other: Left knee is in postoperative dressing, surrounding bruising and moderate swelling noted, distal extremity is neurovascularly intact Psych: Other: Appropriate mood and affect, pleasant and cooperative, judgment and insight intact Objective Data Vital Signs Vital Signs: Vital Signs - 24 hr 02/25/23 16:17 02/25/23 16:30 02/25/23 16:45 Temperature 37.2 C Pulse Rate 80 77 78 Respiratory Rate 16 16 12 Blood Pressure 112/71 105/68 98/64 L Pulse Oximetry 100 98 93 Oxygen Delivery Simple Face Mask Room Air Room Air Oxygen Flow Rate 10 02/25/23 17:00 02/25/23 17:15 02/25/23 17:30 Temperature Pulse Rate 81 72 76 Respiratory Rate 13 14 16 Blood Pressure 121/75 100/81 123/83 Pulse Oximetry 100 100 100 Oxygen Delivery Room Air Room Air Room Air Oxygen Flow Rate 02/25/23 17:45 02/25/23 18:00 02/25/23 18:11 Temperature Pulse Rate 71 68 72 Respir
--- NOTE | 2023-02-26 16:34 | PC.NURSE ---
Spoke with Dr Yañez regarding increased pain and swelling in patients left leg. Patient temp 99.9 and BP 96/54. No new orders at this time
== END 2023-02-26 17:30 | disposition home or self-care (01) ==
LOC: ANHSURGERY 09:29 → ANH3MED 18:21
PROVIDERS: PCP Internal Medicine; Visit Provider Orthopaedic Surgery
PROC: (CPT 27447; principal; 2023-02-25 12:00)
DX: M17.12 Unilateral primary osteoarthritis, left knee (principal); I95.2 Hypotension due to drugs; T36.8X5A Adverse effect of other systemic antibiotics, initial encounter; L40.50 Arthropathic psoriasis, unspecified; K75.4 Autoimmune hepatitis; I42.8 Other cardiomyopathies; D84.9 Immunodeficiency, unspecified; E78.5 Hyperlipidemia, unspecified; M35.00 Sjogren syndrome, unspecified; M32.9 Systemic lupus erythematosus, unspecified; Z79.84 Long term (current) use of oral hypoglycemic drugs; Z79.620 Long term (current) use of immunosuppressive biologic
CPT/HCPCS: 27447; 36415; 73560; 80048; 80307; 82040; 82948; 83036; 85025; 85610; 85730; 86850; 86900; 86901; 87081; 93005; 97110; 97161; A9270; C1713; C1776; J0171; J0690; J1100; J1170; J1200; J1885; J2270; J2371; J2405; J2704; J2795; J3010; J3370; J7120; J7517

== ENCOUNTER 2023-04-06 13:30 | Outpatient (RCR) | payer BC, SELFPAY ==
--- NOTE | 2023-03-02 13:13 | OPREHPOC ---
Outpatient Therapy Plan of Care This is a Multidisciplinary Plan of Care that may contain components documented by all disciplines (PT, OT, and ST.) PT Problem 1 PT Problem #1 Knowledge Deficit PT Goal 1 Goal Pt to be IND with issued HEP Target Visit 16 PT Problem 2 PT Problem #2 Pain PT Goal 1 Goal Pt to report L knee pain no greater than 4/10 in the last week Target Visit 16 PT Goal 2 Goal Pt to report 75% improvement in overall symptoms Target Visit 16 PT Problem 3 PT Problem #3 Impaired Range of Motion PT Goal 1 Goal Pt to increase active knee flexion to 110 deg deg Target Visit 16 PT Goal 2 Goal Pt to increase active knee extension to 0 deg Target Visit 16 PT Problem 4 PT Problem #4 Impaired Strength PT Goal 1 Goal Pt to demonstrates 5xSTS in less than 20s without UE support Target Visit 16 PT Goal 2 Goal Pt to demonstrates L quad strength grossly 4+/5 to improve ambulation PT Problem 5 PT Problem #5 Impaired Gait PT Goal 1 Goal Pt to improve 2 min walk distance from 135ft to 250ft. Target Visit 16 PT Goal 2 Goal Pt to be able to ascend/descend stairs with a reciprocal pattern.
--- NOTE | 2023-03-02 13:13 | PTOPEVAL1 ---
Assessment and note entered by Dania Oropeza, PT, DPT Evaluation Information Assessment Status Evaluation Diagnosis L TKA Onset 02/25/23 Subjective Information Pt arrived 25 mins late for her initial evaluation . Pt had a L TKA on 02/25/23. Pt states she is having a hard time doing stairs. She states it feels like her knee is more painful and swollen than her last replacement. Pt is a nurse. Reported Pain Level Pain Score 4: Self Report Assessment PT Clinical Summary Ronit presents to therapy today for her initial evaluation following a L TKA on 02/25/23. Today she demonstrates decreased active and passive knee ROM that are both limited by pain. She is currently lacking 15 deg from terminal knee extension passively and has 89 deg of passive knee flexion. Pt demonstrates edema and decreased quad control at this time. She ambulated with a WW and at a decreased gait speed. Skilled therapy services are indicated to manage pain and swelling , to improve strength and ROM, to normalize gait, and to return to PLOF without limitations. Plan of Care Interventions Electrical Stimulation,Gait Training,Hot Pack/Cold Pack,Manual Therapy,Neuro Re-education,Patient/ Caregiver Educati,Therapeutic Activities, Therapeutic Exercise PT Services Indicated Yes Treatment Frequency and 2x/wk for 16 visits Duration These treatments will address the objective and functional deficits as defined above. The patient will be advanced safely and appropriately in order for the patient to progress towards his/her prior level of function. Additional exercises will be introduced and as well as a comprehensive home exercise program upon discharge, if needed, ?to ensure carryover of functional gains achieved in the clinic. This treatment plan has been reviewed and agreement upon by the patient.
--- NOTE | 2023-03-19 12:43 | PCPTNOTE ---
Patient called to cancel appointment for 03/20/23 due to not transportation.
--- NOTE | 2023-03-30 09:27 | PCPTNOTE ---
Patient called & cancelled scheduled appointment this date, she rescheduled due to wanting to have more time to work on her exercises prior to coming in for her re-evaluation.
--- NOTE | 2023-04-06 14:26 | PTOPDC ---
Assessment and note entered by Dania Oropeza, PT, DPT Evaluation Information Assessment Status Discharge Diagnosis L TKA Onset 02/25/23 Subjective Information Pt states overall things are going pretty good. She states she has been working a lot more on her strength. She stairs going up and down stairs has still been challenging. She is having no issues with walking or ADLs. Pt report 85% improvement in overall symptoms. She states she has not been having any issued on uneven ground. Reported Pain Level Pain Score 2: Self Report Assessment PT Clinical Summary Ronit presents to therapy today for her progress report following 8 visits of skilled therapy to treat the deficits of her L TKA on 02/25/23. Today she demonstrates active knee ROM from -5-135 deg, she ambulates without deviations, demonstrates good safety with stair navigation, and reports well controlled pain. She has met or progressed well towards her therapy goals. Pt would like not to continue with skilled therapy at this time. She will be discharged. Plan of Care PT Services Indicated No
== END 2023-04-06 15:56 | disposition home or self-care (01) ==
LOC: ANHGOSHPT 13:30
PROVIDERS: PCP Internal Medicine; Visit Provider Family Medicine
DX: M17.12 Unilateral primary osteoarthritis, left knee (principal)
CPT/HCPCS: 97014; 97110; 97116; 97140; 97161; 97530; G0283

== ENCOUNTER 2024-01-18 14:58 | Outpatient (CLI) | payer BC, SELFPAY ==
--- NOTE | ~2024-01-18 | MM_ITS ---
EXAMINATION: MM screening jaleel BI w cristóbal HISTORY: Screening TECHNIQUE: Craniocaudal and mediolateral oblique 3-D tomosynthesis images were obtained and synthetic 2-D images were generated. CAD analysis was submitted and interpreted. COMPARISON: Comparison to multiple prior studies sequentially, with oldest reviewed study dated 11/2019. BREAST PARENCHYMAL COMPOSITION: Dense: The breasts are extremely dense, which lowers the sensitivity of mammography. FINDINGS: There is no evidence of suspicious mass, calcification, or architectural distortion to sugg est malignancy in either breast. There has been no suspicious interval change. IMPRESSION: 1. No mammographic evidence of malignancy. 2. Recommend routine screening mammography in one year. BI-RADS Category 1: Negative Reviewed, dictated and finalized at location B.
== END 2024-01-18 14:59 | disposition home or self-care (01) ==
LOC: CHSIMG 15:01
PROVIDERS: PCP Internal Medicine
DX: Z12.31 Encounter for screening mammogram for malignant neoplasm of breast (principal)
CPT/HCPCS: 77063; 77067

== ENCOUNTER 2024-05-12 11:02 | Outpatient (CLI) | payer BC, SELFPAY ==
--- NOTE | ~2024-05-12 | MR_ITS ---
MR breast BI wo/w con 05/12/2024 12:36 FEDERAL LAW CLERK INDICATION: Family history of breast cancer. Extremely dense breasts. TECHNIQUE: MRI of the breasts perform using standard protocol pre-and post IV contrast with the follo wing sequences: Axial T2 STIR, axial T1, axial vibrant T1 with fat suppression precontrast and multip hasic postcontrast. 13 cc MultiHance administered intravenously COMPARISON: Comparison to multiple prior studies sequentially, with oldest reviewed study dated 09/06. FINDINGS: There are no abnormalities on the precontrast sequences. There is mild background parenchym al enhancement. No enhancing lesions following contrast administration. No areas of enhancement marcos ting threshold criteria on CAD analysis. No evidence of signal abnormalities in the axillary or inte rnal mammary node distributions. LEFT BREAST: No signal abnormalities on precontrast sequences. There is mild background parenchymal enhancement. No enhancing lesions following contrast administration. No areas of enhancement meeti ng threshold criteria on CAD analysis. No evidence of signal abnormalities in the axillary or inter nal mammary node distributions.] IMPRESSION: 1: Right breast: Negative. No evidence of malignancy. BI-RADS category 1. Recommend annual mammo graphy follow-up. 2: Left breast: Negative. No evidence of malignancy. BI-RADS category 1. Recommend annual mammogr aphy follow-up. Follow-up MRI may be useful for supplementing mammographic evaluation as clinically indicated. Reviewed, dictated and finalized at location B. RAL LAW CLERK IMPRESSION: 1: Right breast: Negative. No evidence of malignancy. BI-RADS category 1. Recommend annual mammography follow-up. 2: Left breast: Negative. No evidence of malignancy. BI-RADS category 1. Re commend annual mammography follow-up. Follow-up MRI may be useful for supplementing mammographic evaluation as clinic ally indicated.
== END 2024-05-12 11:03 | disposition home or self-care (01) ==
PROVIDERS: PCP Internal Medicine
DX: R92.343 Mammographic extreme density, bilateral breasts (principal); Z80.3 Family history of malignant neoplasm of breast; Z91.89 Other specified personal risk factors, not elsewhere classified
CPT/HCPCS: 77049; C8908

== ENCOUNTER 2024-11-02 15:25 | Outpatient (CLI) | payer BC, SELFPAY ==
--- NOTE | ~2024-11-02 | XR_ITS ---
Clinical Indication: Shortness of breath PA and lateral views of the chest: Comparison: 01/06/2022 Findings: Calcified granulomas are present. The lungs are otherwise clear, without evidence of focal consolidation or pleural effusion. Cardiomediastinal silhouette is within normal limits. Bones and s oft tissues are unremarkable. Impression: No acute abnormality. Reviewed, dictated and finalized at location M. Impression: No acute abnormality.
== END 2024-11-02 15:26 | disposition home or self-care (01) ==
LOC: MICIMG 15:27
PROVIDERS: PCP Physician Assistant; Visit Provider Physician Assistant Medical
DX: R06.02 Shortness of breath (principal)
CPT/HCPCS: 71046

== ENCOUNTER 2024-12-16 12:46 | Outpatient (CLI) | payer BC, SELFPAY ==
--- NOTE | ~2024-12-16 | XR_ITS ---
XR_[id number]_CR 12/16/2024 13:02 Indication: Neck pain Procedure: 3 view cervical spine Comparison: 02/01/2016 Findings: There is been progression of loss of disc height at C5-6 and C6-7. There is endplate hypert rophy at at C5-6. No prevertebral soft tissue swelling. There is multilevel uncinate and facet hypert rophy. Odontoid process is normal. Impression: 1: Progression of moderate cervical spondylosis most severe at C5-6. Reviewed, dictated and finalized at location B. Impression: 1: Progression of moderate cervical spondylosis most severe at C5-6.
== END 2024-12-16 12:47 | disposition home or self-care (01) ==
LOC: MICIMG 12:47
PROVIDERS: PCP Physician Assistant; Visit Provider Physician Assistant Medical
DX: M47.22 Other spondylosis with radiculopathy, cervical region (principal)
CPT/HCPCS: 72040

== ENCOUNTER 2025-01-19 12:05 | Outpatient (CLI) | payer BC, SELFPAY ==
--- OUTSIDE RECORDS SUMMARY | 2024-08-20 04:00 | XMS_ITS ---
Author Organization [facility] Address [address] [place] [id number] Care Team Providers Care Ethanol Quality Leader Name Role Phone Migration, Provider Unavailable Unavailable REASON FOR VISIT EMR-Kayode Encounters Encounter Location Date Provider Diagnosis [facility] [place] [address] [place], [place] [id number] 08/20/2024 Prov ider Migration Plan Of Treatment No Information Progress Notes * KAITY ANDERSON MDOB:[birth year] (59 yo Other)Acc No.[id number]:08/20/2024 Patient: KAITY GERONIMO :1965 A ge:59 Y S ex:Unknown Address:[address] [place], [address] Subjective: * Chief Complaints: * E MR-Kayode * * Date:
--- OUTSIDE RECORDS SUMMARY | 2024-08-21 04:00 | XMS_ITS ---
Author Organization [facility] Address [address] [place] [id number] Care Team Providers Care Dialer Name Role Phone Migration, Provider Unavailable Unavailable REASON FOR VISIT EMR-Kayode Encounters Encounter Location Date Provider Diagnosis [facility] [place] [address] [place], [place] [id number] 08/21/2024 Prov ider Migration Plan Of Treatment No Information Progress Notes * KAITY ANDERSON MDOB:[birth year] (59 yo Other)Acc No.[id number]:08/21/2024 Patient: KAITY GERONIMO :1965 A ge:59 Y S ex:Unknown Address:[address], [place], [address] Subjective: * Chief Complaints: * E MR-Kayode * * Date:
--- NOTE | ~2025-01-19 | MM_ITS ---
EXAMINATION: screening [facility] BI w cristóbal INDICATION: Asymptomatic, referred for screening mammogram COMPARISON: 01/18/2024 through 04/27/2017 TECHNIQUE: Digital Breast Tomosynthesis CC, MLO views of Both breasts were obtained with computer-aided detection to assist in interpretation of the study. FINDINGS: The breasts are extremely dense, which lowers the sensitivity of mammography. There is a superficial asymmetry seen on the MLO view in the Superior left breast at anterior third. Elsewhere, there are no mammographic features of malignancy. IMPRESSION: 1. Left breast Asymmetry. 2. No evidence of malignancy in the Right breast. RECOMMENDATION: Left breast Diagnostic mammogram with true lateral, appropriate spot compression views and an ultrasound if needed. BI-RADS Category 0: Incomplete: Needs additional imaging evaluation. Reviewed, dictated and finalized at location B. IMPRESSION: 1. Left breast Asymmetry. 2. No evidence of malignancy in the Right breast. RECOMMENDATION: Left breast Diagnostic mammogram with true lateral, appropriate spot compressio n views and an ultrasound if needed. BI-RADS Category 0: Incomplete: Needs additional imaging evaluation.
--- OUTSIDE RECORDS SUMMARY | 2025-01-19 12:10 | XMS_ITS | Encounter Summary ---
Author Organization [facility] Address [address] [place] [address] Phone Care Team Providers Care Cigar Bander Hand Name Role Phone Chris Harris MD Unavailable [phone] Keren Edwards RN Unavailable Unavaila Farhat Perae MD Unavailable [phone] Ginny Alonso RN Unavailable Unavailable Trev Jane MD PhD Unavailable + Sylvia Garcia Primary Care Pr ovider Encounter Details Date Type Department Care Team (Late st Contact Info) Description 12/19/2024 Results Follow-Up [facility] [address] [place] [address] Vanessa Leyva PA [address] [place] [address] SCAN - RADIOLOGY/IMAGING Social History Tobacco Use Types Packs/Day Years Used Date Smoking Tobacco: Never Smokeless Tobacco: Never Alcohol Use Standard Drinks/Week Comments Yes 0 (1 standard drink = 0.6 oz pur e alcohol) AUDIT-C Answer Date Recorded Q1: How often do you have a drink containing alc ohol? Monthly or less 03/11/2024 Average Number of Drinks Not on file 024 Frequency of Binge Drinking Not on file 02/22 Comments Unknown Sex and Gender Information Value Date Recorded Sex Assigned at Not on file Legal Sex Female 7:58 AM PERSONAL FINANCIAL PLANNER Gender Identity Not on file Sexual Orientation Not on file Occupation Industry Job Start Date Job End Date Nurse Not on file Not on file Not on file documented as of this encounter Miscellaneous Notes * Result Encounter Note - Vanessa Leyva PA - 12/19/2024 4:33 PM CDT Worsening c spine DDD, worse at c5-c7. documented in this encounter Plan of Treatment Not on file documented as of this encounter Visit Diagnoses Not on filedocumented in this encounter Care Teams Cigar Bander Hand Relationship Specialty Start Date End Date Sylvia aGrcia PA [address] [place] [address] PCP - General Physician Uniform Force Captain 06/20/24 Chris Harris MD Referring Physician Gastroenterology 08/25/17 Keren Edwards, air defense artillery senior sergeant Failure Coordinator 11/05/22 Farhat Gunter MD [address] [place] [address] Consulting Physician Rheumatology 05/22/23 Ginny Alonso, air defense artillery senior sergeant Failure Coordinator 06/05/23 Trev Jane MD PhD Referring Physician Cardiology 12/10/23 documented as of this encounter
--- OUTSIDE RECORDS SUMMARY | 2025-01-19 12:10 | XMS_ITS | Encounter Summary ---
Author Organization [facility] Address [address] [place] [address] Phone Care Team Providers Care Tube Making Machine Operator Name Role Phone Chris Harris MD Unavailable [phone] Keren Edwards RN Unavailable Unavaila Farhat Perea MD Unavailable [phone] Ginny Alonso RN Unavailable Unavailable Trev Jane MD PhD Unavailable + Sylvia Garcia Primary Care Pr ovider Encounter Details Date Type Department Care Team (Late st Contact Info) Description 12/26/2024 Results Follow-Up [facility] [address] [place] [address] Vanessa Leyva PA [address] [place] [address] Urinalysis reflex to microscopic, Erythrocyte sedimentation rate, CBC with auto differential, Additional followed-up results: 7 Social History Tobacco Use Types Packs/Day Years [...] on file Legal Sex Female 7:58 AM COMPUTER AIDE Gender Identity Not on file Sexual Orientation Not on file 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 documented in this encounter Plan of Treatment Not on file documented as of this encounter Visit Diagnoses Not on filedocumented in this encounter Care Teams Tube Making Machine Operator Relationship Specialty Start Date End Date Sylvia Garcia PA [address] [place] [address] PCP - General Physician Support Architect 06/20/24 Chris Harris MD Referring Physician Gastroenterology 08/25/17 Keren Edwards, conveyor man Failure Coordinator 11/05/22 Farhat Gunter MD [address] [place] [address] Consulting Physician Rheumatology 05/22/23 Ginny Alonso, conveyor man Failure Coordinator 06/05/23 Terv Jane MD PhD Referring Physician Cardiology 12/10/23 documented as of this encounter
--- OUTSIDE RECORDS SUMMARY | 2025-01-19 12:11 | XMS_ITS | Encounter Summary ---
Author Organization [facility] Address [address] [place] [address] Care Team Providers Care Button Reclaimer Name Role Phone Reginaldo Bruno DO Primary Care Provider [phone] Medhat Baeza MD Unavailable Barbara Chau APRN-COCOA MILL OPERATOR Unavailable Unavaila ble Sylvia Us Primary Care Pr ovider Barbara Chau MEDICAL ADMINISTRATIVE TECHNICIAN-COCOA MILL OPERATOR Unavailable Unavaila ble Reason for Visit * Reason Onset Date Comments MEDICATION REFILL 07/01/2024 Encounter Details Date Type Department Care Team (Late st Contact Info) Description 07/01/2024 Refill [facility] - MILLING MACHINIST [address] [facility] [facility] [address] [place] [address] Winnie Luna APRN-CNP [address] [facility] [address] [place] [address] MEDICATION REFILL Social History Tobacco Use Types Packs/Day Years Used Date Smoking Tobacco: Never Passive Smoke Exposure: Never Smokeless Tobacco: Never Alcohol Use Standard Drinks/Week Comments Yes 0 (1 standard drink = 0.6 oz pur e alcohol) 1-2/month PHQ-2 Answer Date Recorded PHQ2 TOTAL SCORE 0 11/11/2022 Comments No Sex and Gender Information Value Date Recorded Sex Assigned at Not on file Legal Sex Female 7:09 PM RATOPRINTER Gender Identity Not on file Sexual Orientation Not on file documented as of this encounter Miscellaneous Notes * Telephone Encounter - Aspen Kelley RN - 07/04/2024 8:58 AM RATOPRINTER MEDICATION FILLED PER PROTOCOL Disposition of prescription: e-prescribed to preferred pharmacy Response to patient: None necessary Refill sent w/ adequate supply to see pt through to 09/09/24. PRINTER documented in this encounter Plan of Treatment Upcoming Encounters Date Type Department Care Team (Late st Contact Info) Description 03/13/2025 11:00 AM CDT Office Visit [facility] Medical [facility] - Surgery [address] [place] [address], [facility] [address] [place] [phone] Barbara Chau, MEDICAL ADMINISTRATIVE TECHNICIAN-COCOA MILL OPERATOR 03/28/2025 2:00 PM RATOPRINTER Office Visit [facility] - MILLING MACHINIST [address] [place] [address], [facility] [address] [place] [phone] [place] [address] [place] [address] [address] [place] [address] 09/15/2025 12:00 PM CDT Office Visit [facility] - MILLING MACHINIST [address] [place] [address] [address] [place] [phone] [place] [address] [place] [address] [address] [place], [place] [id number] documented as of this encounter Visit Diagnoses Diagnosis Insomnia associated with menopause documented in this encounter Care Teams Button Reclaimer Relationship Specialty Start Date End Date Reginaldo Bruno DO [address] [place] [address] PCP - General 06/28/08 07/26/24 Sylvia Us PA [address] [place] [address] PCP - General Physician Home Care Giver 07/27/24 Barbara Chau APRN-CNP PCP - Attributed-Golden Commercial 06/25/24 Medhat Baeza MD [address] [id number] Obstetrics and Gynecology 09/17/21 Barbara Chau APRN-CNP [address] [address] Nurse Practitioner Nurse Practitioner 03/14/24 documented as of this encounter
--- OUTSIDE RECORDS SUMMARY | 2025-01-19 12:11 | XMS_ITS | Encounter Summary ---
Author Organization [facility] Address [address] [place] [address] Care Team Providers Care Philosophy Lecturer Name Role Phone Unavailable Primary Care Provider Unavailabl e Encounter Details Date Type Department Care Team (Latest Contact Info) Description 03/06/1999 Outpatient Historical [facility] Dayanara Holcomb MD Palpitations (Primary Dx) Social History Tobacco Use Types Packs/Day Years Used Date Smoking Tobacco: Never Assessed Comments Unknown Sex and Gender Information Value Date Recorded Sex Assigned at Not on file Legal Sex Female 3:26 AM ROUTE SERVICE MANAGER Gender Identity Not on file Sexual Orientation Not on file documented as of this encounter Plan of Treatment Not on file documented as of this encounter Visit Diagnoses Diagnosis Palpitations- Primary documented in this encounter
--- OUTSIDE RECORDS SUMMARY | 2025-01-19 12:11 | XMS_ITS | Encounter Summary ---
Author Organization [facility] Address [address] [place] [address] Care Team Providers Care Card Grinder Name Role Phone Unavailable Primary Care Provider Unavailabl e Encounter Details Date Type Department Care Team (Latest Contact Info) Description 06/22/1998 Outpatient Historical [facility] David Mahajan MD NO ADDRESS ON FILE Benign neoplasm of breast (Primary Dx) Social History Tobacco Use Types Packs/Day Years Used Date Smoking Tobacco: Never Assessed Comments Unknown Sex and Gender Information Value Date Recorded Sex Assigned at Not on file Legal Sex Female 3:26 AM CVT TECH Gender Identity Not on file Sexual Orientation Not on file documented as of this encounter Plan of Treatment Not on file documented as of this encounter Visit Diagnoses Diagnosis Benign neoplasm of breast- Primary documented in this encounter
--- OUTSIDE RECORDS SUMMARY | 2025-01-19 12:11 | XMS_ITS | Encounter Summary ---
Author Organization [facility] Address [address] [place] [address] Phone Care Team Providers Care Plug Paster Name Role Phone Manny INIGUEZ MD, Jevon Pagan Unavailable [phone] Reginaldo Bruno MD Primary Care Provider [phone] Chris Harris MD Unavailable [phone] Keren Edwards RN Unavailable Unavaila Farhat Perea MD Unavailable Ginny Alonso RN Unavailable Unavailable Trev Jane MD PhD Unavailable + Sylvia Garcia Primary Care Pr ovider Encounter Details Date Type Department Care Team (Late st Contact Info) Description 08/03/2017 Orders Only [facility] ProviderLeticia MD [address] [place] [address] Social History Tobacco Use Types Packs/Day Years Used Date Smoking Tobacco: Never Alcohol Use Standard Drinks/Week Comments Yes 0 (1 standard drink = 0.6 oz pur e alcohol) Comments Unknown Sex and Gender Information Value Date Recorded Sex Assigned at Not on file Legal Sex Female 7:58 AM ALLIANCE DIRECTOR Gender Identity Not on file Sexual Orientation Not on file documented as of this encounter Plan of Treatment Not on file documented as of this encounter Procedures Procedure Name Priority Date/Time Associated Diagnosis Comments DISCHARGE LABORATORY CUMULATIVE REPORT 08/03/2017 12:00 AM CDT documented in this encounter Results * DISCHARGE LABORATORY CUMULATIVE REPORT (08/03/2017 12:00 AM CDT) Narrative 08/03/2017 12:00 AM CDT Ordered by an unspecified provider. us Historical Provider LAB BLOOD ORDERABLES La l Result documented in this encounter Visit Diagnoses Not on filedocumented in this encounter Care Teams Plug Paster Relationship Specialty Start Date End Date Reginaldo Bruno MD [address] [place] [address] PCP - General Internal Medicine 08/03/17 06/19/24 Sylvia Garcia PA [address] [place] [address] PCP - General Physician Remelt Worker 06/20/24 Jevon Bryant III, MD [address] [place] [address] Consulting Physician Rheumatology 08/03/17 05/21/23 Chris Harris MD [address] [place], [place] [id number] Referring Physician Gastroenterology 08/25/17 Keren Edwards, bridge teacher Failure Coordinator 11/05/22 Farhat Gunter MD [address] [place] [address] Consulting Physician Rheumatology 05/22/23 Ginny Alonso, bridge teacher Failure Coordinator 06/05/23 Trev Jane MD PhD Referring Physician Cardiology 12/10/23 documented as of this encounter
--- OUTSIDE RECORDS SUMMARY | 2025-01-19 12:11 | XMS_ITS | Clinical Summary ---
Author Organization [facility] Address [address] [place] [address] Care Team Providers Care J2Ee Software Engineer Name Role Phone Medhat Baeza MD Unavailable Barbara Chau MMA FIGHTER-FACILITIES ENGINEER Unavailable Unavaila ble Sylvia Us Primary Care Pr ovider Barbara Chau MMA FIGHTER-FACILITIES ENGINEER Unavailable Unavaila ble Source Comments [facility],non-owned Affiliates and Associated Physician Practices is amultiple site organization consisting of ambulatory clinics and hospital sitesin [place], [place], [place] and [place]. This disclosure is being madepursuant to the Care Everywhere program and may not contain all information available regarding this patient. Last updated 18.[facility] Allergies Active Allergy Reactions Criticality Noted Date Comments Vancomycin Itching Medium 02/20/2022 Red face Medications * Be aware that medications may not be up to date on this document. Alwaysverify current medications with the patient. acetaminophen CR (TYLENOL ARTHRITIS PAIN) 650 MG tablet Take 2 (two) tablets by mouth 2 times daily Active losartan (Cozaar) 25 MG tablet Take 1 (one) tablet by mouth once daily 03/05/20 22 Active metoprolol succinate XL 24hr (Toprol XL) 100 MG tablet Take 1 (one) tablet by mouth once daily 05/12/20 22 Active cyclobenzaprine (Flexeril) 10 MG tablet Take 2 (two) tablets by mouth at bedtime 04/10/20 22 Active atorvastatin (Lipitor) 20 MG tablet Take 1 (one) tablet by mouth once daily 04/21/20 22 Active spironolactone (Aldactone) tablet Take 1 (one) tablet by mouth once daily 08/19/19 23 Active risankizumab-rz aa (Skyrizi Pen) 150 MG/ML injection Inject 1 mL subcutaneously Every 90 days 09/17/19 23 Active Cholecalciferol 50 MCG (1999 UT) Take 2.5 (two and one-half) tablets by mouth once daily Active mycophenolate (Cellcept) 500 MG tablet Take 3 (three) tablets by mouth once daily 09/20/19 23 Active diclofenac sodium EC (Voltaren) 75 MG tablet Take 1 (one) tablet by mouth 2 times daily 06/04/19 24 Active Estradiol (Imvexxy Maintenance Pack) 10 MCG INSTIndications :Vaginal atrophy Insert 10 mcg into the vagina Two times a week 24 Each 3 12/02/19 24 Active triamcinolone acetonide (Kenalog) 0.1 % ointmentIndicat ions:Erosive lichen planus of vagina APPLY TO VAGINAL OPENING NIGHTLY EXTERNALLY 80 g 1 12/15/19 24 Active gabapentin (Neurontin) 100 MG capsuleIndicati ons:Insomnia associated with menopause TAKE 3 CAPSULES BY MOUTH AT BEDTIME 270 capsule 07/04/19 25 Active valACYclovir (Valtrex) 500 MG tabletIndicatio ns:Herpes simplex infection of perianal skin Take 1 (one) tablet by mouth 2 times daily 180 tablet 07/07/19 25 Active finasteride (Propecia) 1 MG tablet Take 1 (one) tablet by mouth once daily 05/23/20 24 Active hydroxychloroqu ine (Plaquenil) 200 MG tablet Take 1 (one) tablet by mouth once daily Active pilocarpine HCl (Salagen) 5 MG tablet Take 1 (one) tablet by mouth 3 times daily 07/15/19 25 Active hydrocortisone (Anusol-HC) 25 MG suppositoryIndi cations:Erosive lichen planus of vagina Compounded 20 mg hydrocortisone suppository. Use one vaginally as directed 24 suppository 3 07/28/19 25 Active gabapentin (Neurontin) 100 MG capsule Take four tablets a night 360 capsule 3 09/10/19 25 Active Active Problems Problem Noted Date Diagnosed Date Well woman exam with routine gynecological exam 06/23/2023 Herpes simplex infection of perianal skin 2023 Insomnia associated with menopause 06/23/2023 Left ventricular systolic dysfunction 01/23/2022 Overview (05/13/2022): Last Assessment & Plan: Still seeing automobile brakes bonder. Last ef 40-45% on 01/2022 echo. Still having palpitations and irregular HR. Ops Analyst increased toprol to 50mg every day and added losartan Also automobile brakes bonder is wondering if her decreased EF is not autoimmune related and if her EF falls wants to refer pt for heart muscle bx. He also referred her to heart failure clinic at [facility]. Psoriatic arthritis 10/17/2021 Overview (05/13/2022): Last Assessment & Plan: low cdai. Off otezla due to diarrhea. cdai is better but only had 1 stelara injection so far, informed pt that we need to give it 6 months to work before changing meds again if she does not improve. Her flu vaccine and covid vaccines are utd. Check labs today. Avoid anti tnf due to low EF 40-45% on cardiac cath 01/2022. Ops Analyst referred her to heart failure clinic at [facility] for her low EF evaluation and her arrhythmia. Bilateral primary osteoarthritis of knee 020 Overview (12/24/2020): Last Assessment & Plan: Sees ortho. She is getting monovisc injections with ortho soon. Ortho told pt she needs bilat knee TKR. Abnormality of gait and mobility 06/01/2019 Sjogren's syndrome 05/05/2018 Overview (12/24/2020): Last Assessment & Plan: Continue hydration and artificial tears. Objective pulsatile tinnitus 03/22/2018 Ataxia 11/26/2017 Diplopia 11/26/2017 Asthenopia 11/24/2017 Exotropia 11/24/2017 High risk medication use 08/03/2017 Positive SONNY (antinuclear antibody) 12/02/2016 Overview (12/24/2020): Last Assessment & Plan: See #1. SLE (systemic lupus erythematosus) 12/02/2016 Overview (12/24/2020): Last Assessment & Plan: Low cdai. Has improved. 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 Only works 20 h a week now. Had both covid 19 vaccines. Will continue on benlysta sq, she started it 2018. Also on cellcept 1500mg po bid. Continue plaquenil to 300mg po every day. Eye exam is utd. Past history: Avise panel showed low cb cap consistent with her sle dx.. Past labs showed + CB CAP. Has hx of + SONNY in past but neg on 08/09 Avise panel. Also hx of low wbc. Has hx of sun rashes, keratoconjunctivitis, dry mouth, oral ulcers. Also had difficulty getting with 2nd child, had to be on prednisone, heparin and aspirin. Symptoms and clinical findings are compatible with SLE. Had a scalp line rash in past but no dx of psoriasis. Will monitor for psoriasis. Lab order given to pt today. Her water project engineer allowed us to use diclofenac for her knee oa and joint pain. Chronic migraine without aur a without status migrainosus, not intractable 03/22/2014 Episodic tension-type headache 03/22/2014 Fatigue 03/22/2014 Overview (12/24/2020): Last Assessment & Plan: Check tsh. Advised to get sleep study. Fibromyalgia 06/02/2013 Overview (12/24/2020): Last Assessment & Plan: On elavil qhs and flexeril. Autoimmune hepatitis 03/28/2010 Overview (12/24/2020): Last Assessment & Plan: On cellcept from GI Resolved Problems Problem Noted Date Diagnosed Date Resolved Date Osteoarthrosis 07/03/2021 10/30/2021 Rash of face 09/14/2020 05/26/2023 Overview (12/24/2020): Last Assessment & Plan: Face rash x 4 months, appears to be rosacea but advised pt to see her derm about this. Seen with dr irving today. Diarrhea 04/06/2019 01/21/2021 Overview (12/24/2020): Last Assessment & Plan: Neg celiac sprue panel. Loss of equilibrium 04/06/2019 10/31/19 Overview (12/24/2020): Last Assessment & Plan: Labs that we ordered at last visit did not get ALL done at her lab in [facility] once again. cpk not done. Will repeat today. Seeing dr wooten neurologist and she is getting brain mri soon. Muscle spasm 11/26/2017 10/30/2021 Arm numbness 08/03/2017 05/26/2023 Overview (12/24/2020): Last Assessment & Plan: Check celiac sprue panel, advised to discuss this with GI also. Has occ diarrhea. Myalgia 08/03/2017 05/26/2023 Overview (12/24/2020): Last Assessment & Plan: Myositis panel not entirely done and cpk not done once again by her lab in [facility], this is the 2nd time it was ordered. Aldolase negative. Pippa-1 neg. Recheck labs. Encounter for long-term (cur rent) use of medications 01/08/2017 10/30/2021 Overview (12/24/2020): Last Assessment & Plan: Will continue to monitor the patient with routine labs. +CB-CAP:ec4d on avise panel 08/09 + SONNY in past Hep B and C neg 09/09 Quant gold negative 05/2019 (brought copy of lab from work lab) Avise panel 07/2020---showed low cb cap consistent with her sle dx. SLE (systemic lupus erythematosus) 12/02/2016 10/30/2021 Overview (10/30/2021): Last Assessment & Plan: Low cdai. Her lupus is under control with benlysta and cellcept along with plaquenil She continues to have vaginal ulcers dx as lichen planus by lining cementer but better since last visit a month ago, lining cementer started her on intravaginal estrogen supp and pt also stopped her evista. Had both covid 19 vaccines and her booster along with her flu vaccine. Will continue on benlysta sq, she started it 2018. Also on cellcept 1500mg po bid. Continue plaquenil to 300mg po every day. Eye exam is utd. Had a hand erosion on 09/12 but overall her cdai is low so will continue observing her. If she has the possible psoriatic rash start again advised pt to see derm matilda. Seen with dr irving today. Past history: Avise panel showed low cb cap consistent with her sle dx.. Past labs showed + CB CAP. Has hx of + SONNY in past but neg on 08/09 Avise panel. Also hx of low wbc. Has hx of sun rashes, keratoconjunctivitis, dry mouth, oral ulcers. Also had difficulty getting with 2nd child, had to be on prednisone, heparin and aspirin. Symptoms and clinical findings are compatible with SLE. Had a scalp line rash in past but no dx of psoriasis. Will monitor for psoriasis. Seeing derm for evaluation. Lab order given to pt today. Her water project engineer allowed us to use diclofenac for her knee oa and joint pain. Multiple joint pain 11/05/2016 05/26/19 24 Overview (12/24/2020): Last Assessment & Plan: Patient with previous dx of chronic fatigue syndrome and possible fibromyalgia. Complains of all over body pain and severe neck pain. Dx with some mild disc bulge and normal EMG-NCV. Will evaluate for an inflammatory process. Patient to undergo further testing with labs, xrays and u/s. Will have pt RTC in two weeks to go over test results and discuss treatment plan at that time. Patient seen with Dr. Maki. Dizzy spells 03/22/2014 05/26/2023 Never smoked tobacco 10/02/2011 022 Autoimmune hepatitis 03/28/2010 022 Overview (10/30/2021): Last Assessment & Plan: In remission on mycophenolate mofetil, based on normal liver tests. Although the disease can flare at any time, as long as she remains on mycophenolate, the disease should remain in remission. She should remain on the mycophenolate following the knee replacement. There is no evidence this will impair wound healing. Furthermore, stopping the mycophenolate could lead to a flare that would require higher dose corticosteroids, placing her at risk for other complications. She will return in 1 year or when clinically indicated. Family History Medical History Relation Name Comments CAD (Coronary Artery Disease) Father Diabetes - Type 2 Father Hyperlipidemia Father Hypertension Father Cancer - Breast Mother 83 recurrenc e Glaucoma Mother Macular Degeneration Mother Cancer - Breast Paternal Aunt 1 Cancer - Breast Paternal Aunt 2 CAD (Coronary Artery Disease) Paternal Grandfather Cancer - Breast Paternal Grandmother Relation Name Status Comments Father Mother Paternal Aunt 1 Alive Paternal Aunt 2 Alive Paternal Grandfather Paternal Grandmother Social History Tobacco Use Types Packs/Day Years Used Date Smoking Tobacco: Never Passive Smoke Exposure: Never Smokeless Tobacco: Never Tobacco Cessation:Counseling Given: Not Answered Alcohol Use Standard Drinks/Week Comments Yes 0 (1 standard drink = 0.6 oz pur e alcohol) 1-2/month PHQ-2 Answer Date Recorded PHQ2 TOTAL SCORE 0 11/11/2022 Comments No Sex and Gender Information Value Date Recorded Sex Assigned at Not on file Legal Sex Female 7:09 PM CLINICAL SECRETARY Gender Identity Not on file Sexual Orientation Not on file Last Filed Vital Signs Vital Sign Reading Time Taken Comments Blood Pressure 114/72 09/09/2024 1:18 PM CDT Pulse 62 07/27/2024 10:56 AM CLINICAL SECRETARY Temperature 36.3 C (97.3 F) 12/02/2023 10:54 AM CDT Respiratory Rate 18 03/14/2024 11:17 AM CDT Oxygen Saturation 100% 03/14/2024 11:17 AM CDT Inhaled Oxygen Concentration - - Weight 68.8 kg (151 lb 9.6 oz) 09/09/2024 1:18 P M CDT Height 172.7 cm (5' 8) 09/09/2024 1:18 PM CDT Body Mass Index 23.05 09/09/2024 1:18 PM CDT Plan of Treatment Upcoming Encounters Date Type Department Care Team (Late st Contact Info) Description 03/13/2025 11:00 AM CDT Office Visit [facility] - Surgery [address] [place] [address], [facility] [address] [place] [address] Barbara Chau, MMA FIGHTER-FACILITIES ENGINEER 03/28/2025 2:00 PM CLINICAL SECRETARY Office Visit [facility] - CATH LAB [address] [place], [place] [address]carson Roblero, [facility] [address] [place] [phone] [place] [address] [place] [address] [address] [place] [address] 09/15/2025 12:00 PM CDT Office Visit [facility] - CATH LAB [address] [place] [address] [address] [place] [phone] Medhat Baeza MD [address] [place] [address] [address] [place], [place] [id number] Health Maintenance Due Date Last Done Comments COLOGUARD (AGES 45-75) - COLON CA SCREENING 1964 COLON MONITORING 1964 COLONOSCOPY - COLON CA SCREENING 1964 CT COLONOGRAPHY - COLON CA SCREENING 1964 Colorectal Cancer Screening 1964 FIT - COLON CA SCREENING 1964 FLEX SIG - COLON CA SCREENING 1964 HIV SCREENING 1979 HEPATITIS C SCREENING 05/19/1982 DTAP/TDAP/TD VACCINES (1 - Tdap) 1983 PNEUMOCOCCAL VACCINE 50+ (1 of 2 - PCV) 1983 ZOSTER VACCINE (1 of 2) 1983 COVID-19 VACCINE (7 - 2023- season) 2024 03/21/2022, 10/25/2021, 06/21/2021, Additional history exists Respiratory Syncytial Virus (RSV) Vaccine Pt: or over 60 yrs (1 - Risk 60-74 years 1-dose series) 2024 DEPRESSION SCREENING 05/25/2024 11/11/2022 INFLUENZA VACCINE (#1) 2025 MAMMOGRAM 01/17/2026 01/18/2024, 12/24, 12/22/2022, Additional history exists PAP with HPV 06/23/2028 06/23/2023, 03/06/2022 HEPATITIS B VACCINE Aged Out No longe r eligible based on patient's age to complete this topic HIB VACCINE Aged Out No longer eligi ble based on patient's age to complete this topic HPV VACCINE Aged Out No longer eligi ble based on patient's age to complete this topic MENINGOCOCCAL (Group B) VACCINE SHARED DECISION-MAKING Aged Out No longer eligible based on patient's age to complete this topic MENINGOCOCCAL GROUPS A/C/Y/W VACCINE Aged Out No longer eligible based on patient's age to complete this topic Procedures Procedure Name Priority Date/Time Associated Diagnosis Comments MAMMOGRAM 01/18/2024 HPV DETECTION HIGH RISK KELLEN Routine 06/23/2023 11:42 AM CLINICAL SECRETARY Well woman exam with routine gynecological exam from Last 3 Months or Most Recently Relevant to Health Maintenance Results * MAMMOGRAM (01/18/2024) Anatomical Region Laterality Modality Other 01/18/2024 Narrative 01/18/2024 Ordered by an unspecified provider. us Scanned Document SCANNING ONLY Final Result * HPV DETECTION HIGH RISK KELLEN (06/23/2023 11:42 AM CLINICAL SECRETARY) High Risk Human Papilloma Result Not detected Not detected 06/26/2023 12:53 PM CLINICAL SECRETARY [facility] High Risk Human Papilloma Interp 06/26/2023 12:53 PM CLINICAL SECRETARY [facility] Comment:High Risk Human Santosh lloma Virus was Not Detected. Pathology/Cytolo gy MISCELLANEOUS SAMPLES / Unknown 06/23/2023 11:42 AM CLINICAL SECRETARY 06/25/2023 9:46 AM CLINICAL SECRETARY Narrative [facility] - 06/26/2023 12:53 PM CLINICAL SECRETARY Nucleic acid isolated from the specimen was analyzed with a nucleic acid amplification test (FDA approved Gen-Probe HPV Assay) to detect high risk human papilloma virus (Types: 16, 18, 31, 33, 35, 39, 45, 51, 52, 56, 58, 59, 66, and 68). The reference range is Not Detected. Comment: These test results should not be used as the sole basis for clinical assessment and treatment of patients. These results should always be correlated with other available data (cytology, histology, and clinical information). Winnie Luna MMA FIGHTER-FACILITIES ENGINEER LAB - MICROBIOLOGY ORDERAB LES Final Result [facility] [address] [phone] from Last 3 Months or Most Recently Relevant to Health Maintenance Insurance PATRICIA Care Teams J2Ee Software Engineer Relationship Specialty Start Date End Date Sylvia Us PA [address] [place] [address] PCP - General Physician Roofing Contractor 07/27/24 Barbara Chau APRN-FACILITIES ENGINEER PCP - Attributed-[employer]erman Commercial 06/25/24 Medhat Baeza MD [address] [id number] Obstetrics and Gynecology 09/17/21 Barbara Chau APRN-FACILITIES ENGINEER [address] [address] Nurse Practitioner Nurse Practitioner 03/14/24
--- OUTSIDE RECORDS SUMMARY | 2025-01-19 12:11 | XMS_ITS | Encounter Summary ---
Author Organization [facility] Address [address] [place] [address] Care Team Providers Care Technical Testing Engineer Name Role Phone Unavailable Primary Care Provider Unavailabl e Encounter Details Date Type Department Care Team (Latest Contact Info) Description 05/29/1999 Inpatient Historical HIS PATIENT IN A BED Yong Llamas MD NO ADDRESS ON FILE Unspecified indication for care or intervention related to labor and delivery, delivered (Primary Dx) Social History Tobacco Use Types Packs/Day Years Used Date Smoking Tobacco: Never Assessed Comments Unknown Sex and Gender Information Value Date Recorded Sex Assigned at Not on file Legal Sex Female 3:26 AM MASONRY CONTRACTOR ADMINISTRATOR Gender Identity Not on file Sexual Orientation Not on file documented as of this encounter Plan of Treatment Not on file documented as of this encounter Visit Diagnoses Diagnosis Unspecified indication for care or intervention related to labor and delivery, delivered- Primary documented in this encounter
--- OUTSIDE RECORDS SUMMARY | 2025-01-19 12:11 | XMS_ITS | Clinical Summary ---
Author Organization [facility] Address [address] Stephenson: Epic Prelude ADT MARILIN SHARMA [address] Care Team Providers Care Pit Laborer Name Role Phone Unavailable Primary Care Provider Unavailabl e Medications Boric Acid 600mg Vaginal Suppository Insert 1 Suppository vaginally daily at bedtime for 30 nights. 30 Suppository 3 10/17/2016 4:26 PM CDT 10/16/19 17 Active Social History Tobacco Use Types Packs/Day Years Used Date Smoking Tobacco: Never Assessed Comments Unknown Sex and Gender Information Value Date Recorded Sex Assigned at Not on file Legal Sex Female 3:26 AM ROLLING MILL PLUGGER Gender Identity Not on file Sexual Orientation Not on file Plan of Treatment Health Maintenance Due Date Last Done Comments DTAP/TDAP/TD VACCINES (1 - Tdap) 1983 HPV/Cotest (21-29) 1985 CERVICAL CANCER SCREENING 1994 HPV/Cotest (30-65) 1994 PAP SMEAR 1994 BREAST CANCER SCREENING 2004 COLORECTAL SCREENING 2009 Colorectal Cancer Screening 2009 FIT-DNA Q 3 years 2009 FIT/FOBT Q 1 year 2009 Flex Sig/CT Colonography Q 5 years 2009 ZOSTER VACCINE (1 of 2) 2014 INFLUENZA VACCINE (#1) 2024 RSV VACCINE (60+ or ) (1 - 1-dose 75+ series) 2039 HEPATITIS B VACCINES Aged Out No long er eligible based on patient's age to complete this topic
--- OUTSIDE RECORDS SUMMARY | 2025-01-19 12:11 | XMS_ITS | Patient Health Record ---
Author Organization [facility] Address [address] [facility] [place] [id number] Care Team Providers Care Brick Chimney Supervisor Name Role Phone Migration, Provider Unavailable Unavailable Reason For Referral No Information Encounters Encounter Location Date Provider Diagnosis [facility] [address] [place], [place] [id number] 08/20/2024 Prov ider Migration [facility] [address] [place], [place] [id number] 08/21/2024 Prov ider Migration Plan Of Treatment No Information
--- OUTSIDE RECORDS SUMMARY | 2025-01-19 12:11 | XMS_ITS | Clinical Summary ---
Author Organization [facility] Address [address] [place] [address] Care Team Providers Care Senior Executive Assistant Name Role Phone Chris Harris MD Unavailable [phone] Keren Edwards RN Unavailable Unavaila Farhat Perea MD Unavailable [phone] Ginny Alonso RN Unavailable Unavailable Trev Jane MD PhD Unavailable + Sylvia Garcia Primary Care Pr ovider Allergies Active Allergy Reactions Criticality Noted Date Comments Vancomycin Hypotension High 02/20/2022 Red face and itching and burning Medications Lactobacillus acidophilus 10 billion cell capsule Take 1 capsule by mouth daily. Active multivitamin capsule Take 1 capsule by mouth daily Active cholecalcifero l (VITAMIN D-3) 2000 unit tablet Take 2.5 tablets (5,000 Units total) by mouth Active acetaminophen (TYLENOL) 325 mg tablet Take 4 tablets (1,300 mg total) by mouth 2 (two) times a day Takes two times BID Active Imvexxy Maintenance Pack 10 mcg insert vaginal insert 022 Active gabapentin (NEURONTIN) 100 mg capsule One tab x 4 wks; two tab x 4 wks; three tabs x 4 wks 023 Active valACYclovir (VALTREX) 500 mg tablet Take 1 tablet (500 mg total) by mouth 2 (two) times a day 60 tablet 05/09/2 023 Active amitriptyline (ELAVIL) 10 mg tablet Take 2 tablets (20 mg total) by mouth nightly 024 Active triamcinolone (KENALOG) 0.1 % ointment 024 Active metoprolol XL (TOPROL-XL) 100 mg 24 hr tablet TAKE 1 TABLET DAILY 90 tablet 3 025 Active losartan (COZAAR) 25 mg tablet TAKE 1 TABLET DAILY 90 tablet 3 025 Active atorvastatin (LIPITOR) 20 mg tablet TAKE 1 TABLET DAILY 90 tablet 3 025 Active pilocarpine (SALAGEN) 5 mg tabletIndicati ons:Sjogren's syndrome, with unspecified organ involvement Take 1 tablet (5 mg total) by mouth 3 (three) times a day 270 tablet 1 025 Active hydroxychloroq uine (PLAQUENIL) 200 mg tablet Take 1 tablet (200 mg total) by mouth daily 90 tablet 1 025 Active mycophenolate mofetil (CELLCEPT) 500 mg tabletIndicati ons:Systemic lupus erythematosus, unspecified SLE type, unspecified organ involvement status (HCC) TAKE 3 TABLETS (1,500 MG) BY MOUTH DAILY 90 tablet 1 025 Active Additional Information Patient taking differently: 1,000 mg oral 2 times daily, Reported on 12/08/[address] (VOLTAREN) 75 mg EC tablet Take 1 tablet (75 mg total) by mouth 2 (two) times a day 180 tablet 1 025 Active cyclobenzaprin e (FLEXERIL) 10 mg tablet TAKE 2 TABLETS NIGHTLY 180 tablet 025 Active spironolactone (ALDACTONE) 25 mg tablet TAKE 1 TABLET DAILY 90 tablet 3 025 Active Skyrizi 150 mg/mL pen injector INJECT 150 MG (1 INJECTOR) SUBCUTANEOUSLY EVERY 3 MONTHS 1 mL 2 025 Active risankizumab-r zaa (Skyrizi) 150 mg/mL pen injector Inject 150 mg under the skin every 3 (three) months 1 mL 3 024 2024 Discontinued Active Problems Problem Noted Date Diagnosed Date Pain of toe of left foot 03/14/2024 Assessment & Plan (06/20/2024 2:53 PM BUILDING ENGINEER): Dr gunter injected lt 1st mtp and pain has improved a lot per pt. Assessment & Plan (03/14/2024 2:08 PM CDT): Has a lot of bony swelling of 1st mtp's bilat and pip of bilat foot toe 2-3. Will schedule lt 1st mtp steroid inj under US with dr gunter and also have her see dr mims foot/ankle ortho at [facility] for opinion. Hair loss 03/14/2024 Assessment & Plan (03/14/2024 2:08 PM CDT): Check tsh. Nonsustained ventricular tachycardia 01/23/2022 Left ventricular systolic dysfunction 01/23/2022 Assessment & Plan (02/05/2023 5:19 PM CDT): Still seeing rake operator. Last ef 40-45% on 01/2022 echo. Still having palpitations and irregular HR. Automatic Paint Sprayer Operator increased toprol to 50mg every day and added losartan Also rake operator is wondering if her decreased EF is not autoimmune related and if her EF falls wants to refer pt for heart muscle bx. He also referred her to heart failure clinic at [facility]. Automatic Paint Sprayer Operator also has her on jardiance for her chf so she has some glucose in urine due to this, no hx of dm2. Assessment & Plan (04/23/2022 3:49 PM BUILDING ENGINEER): Still seeing rake operator. Last ef 40-45% on 01/2022 echo. Still having palpitations and irregular HR. Automatic Paint Sprayer Operator increased toprol to 50mg every day and added losartan Also rake operator is wondering if her decreased EF is not autoimmune related and if her EF falls wants to refer pt for heart muscle bx. He also referred her to heart failure clinic at [facility]. Assessment & Plan (03/20/2022 2:27 PM CDT): Still seeing rake operator. Last ef 40-45% on 01/2022 echo. Still having palpitations and irregular HR. Automatic Paint Sprayer Operator increased toprol to 50mg every day and added losartan. Has a f/u again in 2 weeks to discuss repeating her echo with him. Also rake operator is wondering if her decreased EF is not autoimmune related and if her EF falls wants to refer pt for heart muscle bx. Bilateral foot pain 10/17/2021 Assessment & Plan (10/17/2021 2:06 PM CDT): Having bilat foot pain with bilat foot 2-3 pip and dip swelling and pain. In past had scaly rashes on elbows and scalp but derm thought it looked like eczma. No family hx of Psoriasis. Rib Puller told pt she has foot changes consistent with psoriatic arthritis. Advised pt to take pictures of rashes when they happen and see another derm for 2nd opinion. Psoriatic arthritis 10/17/2021 Assessment & Plan (12/22/2024 4:14 PM CDT): Low-mod cdai. Has improved since she started skyrizi overall but since she still has joint pain and swelling will increase her mycophenolate to 1000mg bib am and 1500mg in pm, in past she used to be on 1500mg bid and tolerated it. Will continue skyrizi along with cellcept that was initially rx by gi for her autoimmune hepatitis. Also discussed changing skyrizi to tremfya if cellcept increase does not help more. In past she had diarrhea with otezla so it was stopped. Check labs today. Avoid anti tnf due to low EF 50%. Sees her rake operator regularly for repeat echo and visit. Last echo early 2024 EF 50%, improved. Cxr clear lungs 10/2024. Assessment & Plan (11/10/2024 2:40 PM CDT): Mod cdai. Has improved since she started skyrizi overall but since she still has joint pain and swelling will increase her mycophenolate to 1000mg bid, in past she used to be on 1500mg bid and tolerated it. Will continue skyrizi along with cellcept that was initially rx by gi for her autoimmune hepatitis. In past she had diarrhea with otezla so it was stopped. . Check labs today. Avoid anti tnf due to low EF 50%. Sees her rake operator regularly for repeat echo and visit. Last echo eaerly 2024 EF 50%, improved. Cxr clear lungs 10/2024. Assessment & Plan (08/01/2024 7:10 PM CDT): Low cdai. Has improved since she started skyrizi overall. Seen with dr gunter. Will continue skyrizi along with cellcept that was initially rx by gi for her autoimmune hepatitis. In past she had diarrhea with otezla. Check labs today. Avoid anti tnf due to low EF 50%. Sees her rake operator next month for repeat echo and visit. Continues to have some sob, occ at rest also. Check cxr. No coughing/wheezing. Assessment & Plan (06/20/2024 2:53 PM BUILDING ENGINEER): Low cdai. Has improved since she started skyrizi overall. Seen with dr gunter. Will continue skyrizi along with cellcept that was initially rx by gi for her autoimmune hepatitis. In past she had diarrhea with otezla. Check labs today. Avoid anti tnf due to low EF 50%. Assessment & Plan (03/14/2024 8:22 AM CDT): Low cdai. Has improved since she started skyrizi overall. Joints minimally swollen today. Will continue skyrizi along with cellcept that was initially rx by gi for her autoimmune hepatitis. In past she had diarrhea with otezla. Check labs today. Avoid anti tnf due to low EF 50%. Assessment & Plan (12/07/2023 2:41 PM CDT): Low cdai. Has improved since she started skyrizi overall. Joints minimally swollen today. Will continue skyrizi along with cellcept that was initially rx by gi for her autoimmune hepatitis. In past she had diarrhea with otezla. Check labs today. Avoid anti tnf due to low EF 50%. Assessment & Plan (09/11/2023 3:17 PM CDT): Low cdai. Has improved since she started skyrizi. Continue Cellcept. In past she had diarrhea with otezla. Check labs today. Avoid anti tnf due to low EF 50%. een with Dr. Gunter today. Assessment & Plan (06/25/2023 4:44 PM BUILDING ENGINEER): Low cdai. Has improved since she started skyrizi. Continue Cellcept. In past she had diarrhea with otezla. Check labs today. Avoid anti tnf due to low EF 50%. Automatic Paint Sprayer Operator referred her to heart failure clinic at [facility] for her low EF evaluation and her arrhythmia. Her EF increased form 4045% up to 50% and she is exercising regularly also. Her chf is stable. To ask her rake operator if she can restart plaquenil 200mg po every day. Seen with Dr. Gunter today. Assessment & Plan (04/24/2023 5:41 PM BUILDING ENGINEER): Low cdai. Has improved since she started skyrizi. She had her lt knee tkr in February. Continue Cellcept. In past she had diarrhea with otezla. Check labs today. Avoid anti tnf due to low EF 40-45% on cardiac cath 01/2022. Automatic Paint Sprayer Operator referred her to heart failure clinic at [facility] for her low EF evaluation and her arrhythmia. Her chf is stable. Assessment & Plan (02/05/2023 5:18 PM CDT): Low cdai. Has improved since she started skyrizi. She has lt knee tkr in February right before she is due for her next skyrizi. Her gi does not want her to stop her cellcept. In past she failed stelara. Continue Cellcept. In past she had diarrhea with otezla. Check labs today. Avoid anti tnf due to low EF 40-45% on cardiac cath 01/2022. Automatic Paint Sprayer Operator referred her to heart failure clinic at [facility] for her low EF evaluation and her arrhythmia. Assessment & Plan (12/11/2022 2:23 PM CDT): Low-mod cdai. Has improved since she started skyrizi and so far only had 2 injections. If she decides to get her lt tkr in January to delay her next skyrizi until 2 weeks post surgery if she has no infections/complications. In past she failed stelara. Continue Cellcept. In past she had diarrhea with otezla. Check labs today. Avoid anti tnf due to low EF 40-45% on cardiac cath 01/2022. Automatic Paint Sprayer Operator referred her to heart failure clinic at [facility] for her low EF evaluation and her arrhythmia. Assessment & Plan (09/10/2022 4:34 PM CDT): High cdai. Failing stelara, has been on it since 04/2022, had 3 inj so far and has not noticed improvement. Will change to skyrizi. Seen with dr irving. In past she had diarrhea with otezla. Recent egd/colo were normal. Diarrhea has resolved, she is constipated now. She is taking amitriptyline for her migraines which are now controlled with botox inj, to decrease amitriptyline by 10mg q 2 weeks and if no headaches to stop it and see if her constipation improves. Check labs today. Avoid anti tnf due to low EF 40-45% on cardiac cath 01/2022. Automatic Paint Sprayer Operator referred her to heart failure clinic at [facility] for her low EF evaluation and her arrhythmia. Seen with Dr. Irving today. Assessment & Plan (04/23/2022 3:48 PM BUILDING ENGINEER): low cdai. Off otezla due to diarrhea. cdai is better but only had 1 stelara injection so far, informed pt that we need to give it 6 months to work before changing meds again if she does not improve. Her flu vaccine and covid vaccines are utd. Check labs today. Avoid anti tnf due to low EF 40-45% on cardiac cath 01/2022. Automatic Paint Sprayer Operator referred her to heart failure clinic at [facility] for her low EF evaluation and her arrhythmia. Assessment & Plan (03/20/2022 2:27 PM CDT): Mod cdai. Off otezla due to diarrhea. Will start stelara sq at 0, 4 and q12 weeks but only 2 weeks after she has her covid booster. Seen with dr irving. Avoid anti tnf due to low EF 40-45% on cardiac cath 01/2022. Assessment & Plan (02/20/2022 2:57 PM CDT): Mod cdai. Off otezla due to diarrhea. Will start stelara sq at 0, 4 and q12 weeks. Discussed potential SE. Avoid anti tnf due to low EF 40-45% on cardiac cath 01/2022. Assessment & Plan (01/17/2022 1:23 PM CDT): No change in symptoms. Will remain off otezla due to diarrheal symptoms. Could consider initiation with Orencia in the future if Benlysta is stopped, which would be safe with her SLE diagnosis. Assessment & Plan (01/03/2022 9:40 PM CDT): Tried Otezla but had GI upset. Retried after her R TKR but had worsened nausea, GI upset and diarrhea and it was stopped on 12/20. No current rashes concerning for psoriasis. Still with right 1st and 2nd toe DIP enlargement. Will remain off Otezla at this time and monitor. Assessment & Plan (10/17/2021 3:16 PM CDT): high cdai. Saw corporate legal manager recently for bilat foot pain and toe swelling and he felt that her toe joint changes are consistent with psoriatic arthritis. She appears to have an overlap of PsA and SLE. Start otezla and see if this helps. Will see if this helps her joints. Discussed potential se including diarrhea, increased risk of depression. F/u in 1 month to recheck labs and re-evaluate. Gave pt 1 month of otezla samples. Seen with dr irving. 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 Using topical steroids and steroid vaginal suppository. It has helped. Will f/u with alternative financing specialist. 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 Using topical steroids and steroid vaginal suppository. It has helped. Will f/u with alternative financing specialist. Assessment & Plan (03/21/2021 4:45 PM CDT): Recently dx by alternative financing specialist with vaginal and vulvar lichen planus with ulcerations. Using topical steroids and steroid vaginal suppository. It has helped. Will f/u with alternative financing specialist. Rash of face 09/14/2020 Assessment & Plan (09/14/2020 4:17 PM CDT): Face rash x 4 months, appears to be rosacea but advised pt to see her derm about this. Seen with dr irving today. Bilateral primary osteoarthritis of knee 020 Assessment & Plan (03/20/2021 3:55 PM CDT): Sees ortho. She is getting monovisc injections with ortho soon. Ortho told pt she needs bilat knee TKR. Assessment & Plan (12/10/2020 3:51 PM CDT): Sees ortho. She is getting monovisc injections with ortho soon. Ortho told pt she needs bilat knee TKR. Assessment & Plan (09/14/2020 9:19 AM CDT): Sees ortho for steroid inj in bilat knees q 3 months. They are wearing off faster then 3 months. Was advised to discuss zilretta with her ortho at last visit. Assessment & Plan (07/26/2020 4:38 PM BUILDING ENGINEER): Sees ortho for steroid inj in bilat knees q 3 months. They are wearing off faster then 3 months. To discuss zilretta with her ortho. Assessment & Plan (01/18/2020 12:12 PM CDT): Sees ortho, needs lt knee tkr but too young yet. Her bobbin dumper allowed us to use diclofenac for her knee oa and joint pain. F/u in 1 mo to recheck labs. Assessment & Plan (07/08/2019 5:47 PM BUILDING ENGINEER): Sees ortho, needs lt knee tkr but too young yet. Her bobbin dumper allowed us to use diclofenac for her knee oa and joint pain. F/u in 1 mo to recheck labs. Abnormality of gait and mobility 06/01/2019 Loss of equilibrium 04/06/2019 Assessment & Plan (06/06/2019 4:10 PM BUILDING ENGINEER): Labs that we ordered at last visit did not get ALL done at her lab in town once again. cpk not done. Will repeat today. Seeing dr crenshaw neurologist and she is getting brain mri soon. Assessment & Plan (04/06/2019 5:04 PM BUILDING ENGINEER): Will check myositis panel, cpk and aldolase and pt advised to discuss this with pcp. Had a nl brain mri in past 1.5 year. Diarrhea 04/06/2019 Assessment & Plan (01/17/2022 1:26 PM CDT): Completed course of flagyl and continued Bentyl TID (tried BID with increase in bloating/cramping). Weight has stabilized and she has been able to eat more frequent small meals with slight improvement in frequency of loose bowel movements. Recent Cdiff stool cultures were negative with elevated calprotectin at 346. Was to have EGD/colonoscopy tomorrow however due to recent discovery of Vtach on 24hr Holter Monitor her procedure has been delayed until further cardiology work up is performed. Assessment & Plan (06/06/2019 8:12 AM BUILDING ENGINEER): Neg celiac sprue panel. Assessment & Plan (04/06/2019 5:04 PM BUILDING ENGINEER): Has occ diarrhea, will check celiac panel. Sjogren's syndrome 05/05/2018 Assessment & Plan (12/22/2024 4:15 PM CDT): Slight improvement of dry mouth since she started salagen. Will continue it. Continue hydration and artificial tears. Advised to use opth oint at least qhs but best tid. Discussed miebo drops in past. Continue refresh optive eye drops 4-6 times a day prn for dry eyes. Assessment & Plan (11/10/2024 7:48 AM CDT): Slight improvement of dry mouth since she started salagen. Will continue it and refill it today. Continue hydration and artificial tears. Advised to use opth oint at least qhs but best tid. Discussed miebo drops that recently came to market, to discuss getting rx with her opth. Continue refresh optive eye drops 4-6 times a day prn for dry eyes. Assessment & Plan (08/01/2024 7:09 PM CDT): Slight improvement of dry mouth since she started salagen. Will continue it and refill it today. Continue hydration and artificial tears. Advised to use opth oint at least qhs but best tid. Discussed miebo drops that recently came to market, to discuss getting rx with her opth. Continue refresh optive eye drops 4-6 times a day prn for dry eyes. Assessment & Plan (06/20/2024 2:59 PM BUILDING ENGINEER): Continue hydration and artificial tears. Discussed starting evoxac or salagen for her sicca symptoms and she wants to start pilocarpine 5 mg tid. Seen with Dr. Gunter. continue drinking water, using sugar free gum. For her eyes to discuss starting miebo eye drops with her opth, eye oint qid prn and refresh optive prn. Assessment & Plan (03/14/2024 8:22 AM CDT): Continue hydration and artificial tears. Assessment & Plan (12/07/2023 8:29 AM CDT): Continue hydration and artificial tears. Assessment & Plan (09/11/2023 3:17 PM CDT): Continue hydration and artificial tears. Assessment & Plan (06/25/2023 7:42 AM BUILDING ENGINEER): Continue hydration and artificial tears. Assessment & Plan (04/24/2023 8:12 AM BUILDING ENGINEER): Continue hydration and artificial tears. Assessment & Plan (02/05/2023 8:38 AM CDT): Continue hydration and artificial tears. Assessment & Plan (12/11/2022 7:39 AM CDT): Continue hydration and artificial tears. Assessment & Plan (04/21/2022 3:30 PM BUILDING ENGINEER): Continue hydration and artificial tears. Assessment & Plan (02/20/2022 1:02 PM CDT): Continue hydration and artificial tears. Assessment & Plan (10/14/2021 3:11 PM CDT): Continue hydration and artificial tears. Symptoms worse since she started evista. Discussed stopping evista and see if symptoms improve but to discuss with alternative financing specialist. Her lichen planus is also worse since she stared evista so pt wants to stop evista. Assessment & Plan (08/21/2021 1:25 PM CDT): Continue hydration and artificial tears. Symptoms worse since she started evista. Discussed stopping evista and see if symptoms improve but to discuss with alternative financing specialist. Her lichen planus is also worse since she stared evista so pt wants to stop evista. Assessment & Plan (07/22/2021 4:46 PM BUILDING ENGINEER): Continue hydration and artificial tears. Symptoms worse since she started evista. Discussed stopping evista and see if symptoms improve but to discuss with alternative financing specialist. Her lichen planus is also worse since she stared evista so pt wants to stop evista. Assessment & Plan (03/20/2021 3:56 PM CDT): Continue hydration and artificial tears. Assessment & Plan (12/10/2020 11:11 AM CDT): Continue hydration and artificial tears. Assessment & Plan (09/14/2020 9:17 AM CDT): Continue hydration and artificial tears. Assessment & Plan (07/26/2020 2:09 PM BUILDING ENGINEER): Continue hydration and artificial tears. Assessment & Plan (07/26/2020 8:44 AM BUILDING ENGINEER): Continue hydration and artificial tears. Assessment & Plan (04/11/2020 11:16 AM BUILDING ENGINEER): Continue hydration and artificial tears. Assessment & Plan (01/18/2020 12:12 PM CDT): Continue hydration and artificial tears. Assessment & Plan (07/08/2019 8:29 AM BUILDING ENGINEER): Continue hydration and artificial tears. Assessment & Plan (06/06/2019 7:54 AM BUILDING ENGINEER): Continue hydration and artificial tears. Assessment & Plan (04/06/2019 8:50 AM BUILDING ENGINEER): Continue hydration and artificial tears. Objective pulsatile tinnitus 03/22/2018 Diplopia 11/26/2017 Muscle spasm 11/26/2017 Ataxia 11/26/2017 Arm numbness 08/03/2017 Assessment & Plan (04/06/2019 5:03 PM BUILDING ENGINEER): Check celiac sprue panel, advised to discuss this with GI also. Has occ diarrhea. Myalgia 08/03/2017 Assessment & Plan (01/18/2020 12:13 PM CDT): Myositis panel not entirely done and cpk not done once again by her lab [facility], this is the 2nd time it was ordered. Aldolase negative. Pippa-1 neg. Recheck labs. Assessment & Plan (07/08/2019 8:28 AM BUILDING ENGINEER): Myositis panel not entirely done and cpk not done once again by her lab [facility], this is the 2nd time it was ordered. Aldolase negative. Pippa-1 neg. Assessment & Plan (06/06/2019 8:10 AM BUILDING ENGINEER): Myositis panel not entirely done and cpk not done once again by her lab in town. Aldolase negative. Pippa-1 neg. Assessment & Plan (04/06/2019 5:02 PM BUILDING ENGINEER): Nl muscle strength on exam but will check cpk, aldolase and myositis panel. High risk medication use 08/03/2017 Encounter for long-term (current) use of medicat ions 01/08/2017 Assessment & Plan (12/22/2024 9:52 AM CDT): Will continue to monitor the patient with routine labs. +CB-CAP:ec4d on avise panel 08/09 + SONNY in past Hep B and C neg 09/09 Quant gold negative 05/2019 (brought copy of lab from work lab) Avise panel 07/2020---showed low cb cap consistent with her sle dx. Diarrhea with Otezla Stop benlysta 01/2022 Failed stelara, go to skyrizi 09/10/2022 Stopped benlysta 10/2021 Stopped plaquenil 10/2021 due to arrhythmia Low EF 40-45% on cardiac cath 02/03/2022 Assessment & Plan (11/10/2024 7:47 AM CDT): Will continue to monitor the patient with routine labs. +CB-CAP:ec4d on avise panel 08/09 + SONNY in past Hep B and C neg 09/09 Quant gold negative 05/2019 (brought copy of lab from work lab) [facility]ise panel 07/2020---showed low cb cap consistent with her sle dx. Diarrhea with Otezla Stop benlysta 01/2022 Failed stelara, go to skyrizi 09/10/2022 Stopped benlysta 10/2021 Stopped plaquenil 10/2021 due to arrhythmia Low EF 40-45% on cardiac cath 02/03/2022 Assessment & Plan (08/01/2024 9:02 AM CDT): Will continue to monitor the patient with routine labs. +CB-CAP:ec4d on avise panel 318 + SONNY in past Hep B and C neg 4/18 Quant gold negative 05/2019 (brought copy of lab from work lab) Avise panel 07/2020---showed low cb cap consistent with her sle dx. Diarrhea with Otezla Stop benlysta 01/2022 Failed stelara, go to skyrizi 09/10/2022 Stopped benlysta 10/2021 Stopped plaquenil 10/2021 due to arrhythmia Low EF 40-45% on cardiac cath 02/03/2022 Assessment & Plan (06/20/2024 8:33 AM BUILDING ENGINEER): Will continue to monitor the patient with routine labs. +CB-CAP:ec4d on avise panel 08/09 + SONNY in past Hep B and C neg 18 Quant gold negative 05/2019 (brought copy of lab from work lab) Avise panel 07/2020---showed low cb cap consistent with her sle dx. Diarrhea with Otezla Stop benlysta 01/2022 Failed stelara, go to skyrizi 09/10/2022 Stopped benlysta 10/2021 Stopped plaquenil 10/2021 due to arrhythmia Low EF 40-45% on cardiac cath 02/03/2022 Assessment & Plan (03/14/2024 8:21 AM CDT): Will continue to monitor the patient with routine labs. +CB-CAP:ec4d on [facility] panel 08/09 + SONNY in past Hep B and C neg 18 Quant gold negative 05/2019 (brought copy of lab from work lab) [facility] panel 07/2020---showed low cb cap consistent with her sle dx. Diarrhea with Otezla Stop benlysta 01/2022 Failed stelara, go to [facility] 09/10/2022 Stopped benlysta 10/2021 Stopped plaquenil 10/2021 due to arrhythmia Low EF 40-45% on cardiac cath 02/03/2022 Assessment & Plan (12/07/2023 8:29 AM CDT): Will continue to monitor the patient with routine labs. +CB-CAP:ec4d on [facility] panel 3/18 + SONNY in past Hep B and C neg 18 Quant gold negative 05/2019 (brought copy of lab from work lab) [facility] panel 07/2020---showed low cb cap consistent with her sle dx. Diarrhea with Otezla Stop benlysta 01/2022 Failed stelara, go to [facility] 09/10/2022 Stopped benlysta 10/2021 Stopped plaquenil 10/2021 due to arrhythmia Low EF 40-45% on cardiac cath 02/03/2022 Assessment & Plan (09/11/2023 12:57 PM CDT): Will continue to monitor the patient with routine labs. +CB-CAP:ec4d on [facility] panel 3/18 + SONNY in past Hep B and C neg 09/09 Quant gold negative 05/2019 (brought copy of lab from work lab) [facility] panel 07/2020---showed low cb cap consistent with her sle dx. Diarrhea with Otezla Stop benlysta 01/2022 Failed stelara, go to [facility] 09/10/2022 Stopped benlysta 10/2021 Stopped plaquenil 10/2021 due to arrhythmia Low EF 40-45% on cardiac cath 02/03/2022 Assessment & Plan (06/25/2023 7:43 AM BUILDING ENGINEER): Will continue to monitor the patient with routine labs. +CB-CAP:ec4d on [facility] panel 3/18 + SONNY in past Hep B and C neg 09/09 Quant gold negative 05/2019 (brought copy of lab from work lab) [facility] panel 07/2020---showed low cb cap consistent with her sle dx. Diarrhea with Otezla Stop benlysta 01/2022 Failed stelara, go to [facility] 09/10/2022 Stopped benlysta 10/2021 Stopped plaquenil 10/2021 due to arrhythmia Low EF 40-45% on cardiac cath 02/03/2022 Assessment & Plan (04/24/2023 8:12 AM BUILDING ENGINEER): Will continue to monitor the patient with routine labs. +CB-CAP:ec4d on [facility] panel 3/18 + SONNY in past Hep B and C neg 418 Quant gold negative 05/2019 (brought copy of lab from work lab) [facility] panel 07/2020---showed low cb cap consistent with her sle dx. Diarrhea with Otezla Stop benlysta 01/2022 Failed stelara, go to [facility] 09/10/2022 Stopped benlysta 10/2021 Stopped plaquenil 10/2021 due to arrhythmia Low EF 40-45% on cardiac cath 02/03/2022 Assessment & Plan (02/05/2023 8:39 AM CDT): Will continue to monitor the patient with routine labs. +CB-CAP:ec4d on [facility] panel 318 + SONNY in past Hep B and C neg 09/09 Quant gold negative 05/2019 (brought copy of lab from work lab) [facility] panel 07/2020---showed low cb cap consistent with her sle dx. Diarrhea with Otezla Stop benlysta 01/2022 Failed stelara, go to [facility] 09/10/2022 Stopped benlysta 10/2021 Stopped plaquenil 10/2021 due to arrhythmia Low EF 40-45% on cardiac cath 02/03/2022 Assessment & Plan (12/11/2022 7:43 AM CDT): Will continue to monitor the patient with routine labs. +CB-CAP:ec4d on av[facility] panel 318 + SONNY in past Hep B and C neg 09/09 Quant gold negative 05/2019 (brought copy of lab from work lab) [facility] panel 07/2020---showed low cb cap consistent with her sle dx. Diarrhea with Otezla Stop benlysta 01/2022 Failed stelara, go to [facility] 09/10/2022 Stopped benlysta 10/2021 Stopped plaquenil 10/2021 due to arrhythmia Low EF 40-45% on cardiac cath 02/03/2022 Assessment & Plan (09/10/2022 4:27 PM CDT): Will continue to monitor the patient with routine labs. +CB-CAP:ec4d on [facility] panel 3/18 + SONNY in past Hep B and C neg 4/18 Quant gold negative 05/2019 (brought copy of lab from work lab) [facility] panel 07/2020---showed low cb cap consistent with her sle dx. Diarrhea with Otezla Stop benlysta 01/2022 Failed javier, go to [facility] 09/10/2022 Stopped benlysta 10/2021 Stopped plaquenil 10/2021 due to arrhythmia Low EF 40-45% on cardiac cath 02/03/2022 Assessment & Plan (04/21/2022 3:30 PM BUILDING ENGINEER): Will continue to monitor the patient with routine labs. +CB-CAP:ec4d on [facility] panel 08/09 + SONNY in past Hep B and C neg 18 Quant gold negative 05/2019 (brought copy of lab from work lab) [facility] panel 07/2020---showed low cb cap consistent with her sle dx. Diarrhea with Otezla Stop benlysta 01/2022 Stopped benlysta 10/2021 Stopped plaquenil 10/2021 due to arrhythmia Low EF 40-45% on cardiac cath 02/03/2022 Assessment & Plan (03/20/2022 2:28 PM CDT): Will continue to monitor the patient with routine labs. +CB-CAP:ec4d on av[facility] panel 318 + SONNY in past Hep B and C neg 4/18 Quant gold negative 05/2019 (brought copy of lab from work lab) [facility] panel 07/2020---showed low cb cap consistent with her sle dx. Diarrhea with Otezla Stop benlysta 01/2022 Stopped benlysta 10/2021 Stopped plaquenil 10/2021 due to arrhythmia Low EF 40-45% on cardiac cath 02/03/2022 Assessment & Plan (02/20/2022 2:58 PM CDT): Will continue to monitor the patient with routine labs. +CB-CAP:ec4d on [facility] panel 3/18 + SONNY in past Hep B and C neg 4/18 Quant gold negative 05/2019 (brought copy of lab from work lab) [facility] panel 07/2020---showed low cb cap consistent with her sle dx. Diarrhea with Otezla Stopped benlysta 10/2021 Stopped plaquenil 10/2021 due to arrhythmia Low EF 40-45% on cardiac cath 02/03/2022 Assessment & Plan (01/03/2022 1:50 PM CDT): Will continue to monitor the patient with routine labs. +CB-CAP:ec4d on [facility] panel 3/18 + SONNY in past Hep B and C neg 4/18 Quant gold negative 05/2019 (brought copy of lab from work lab) [facility] panel 07/2020---showed low cb cap consistent with her sle dx. Assessment & Plan (10/14/2021 3:11 PM CDT): Will continue to monitor the patient with routine labs. +CB-CAP:ec4d on [facility] panel 3/18 + SONNY in past Hep B and C neg 4/18 Quant gold negative 05/2019 (brought copy of lab from work lab) [facility] panel 07/2020---showed low cb cap consistent with her sle dx. Assessment & Plan (08/21/2021 1:25 PM CDT): Will continue to monitor the patient with routine labs. +CB-CAP:ec4d on [facility] panel 3/18 + SONNY in past Hep B and C neg 4/18 Quant gold negative 05/2019 (brought copy of lab from work lab) [facility] panel 07/2020---showed low cb cap consistent with her sle dx. Assessment & Plan (07/19/2021 8:45 AM BUILDING ENGINEER): Will continue to monitor the patient with routine labs. +CB-CAP:ec4d on av[facility] panel 3/18 + SONNY in past Hep B and C neg 4/18 Quant gold negative 05/2019 (brought copy of lab from work lab) [facility] panel 07/2020---showed low cb cap consistent with her sle dx. Assessment & Plan (03/20/2021 3:55 PM CDT): Will continue to monitor the patient with routine labs. +CB-CAP:ec4d on avise panel 3/18 + SONNY in past Hep B and C neg 4/18 Quant gold negative 05/2019 (brought copy of lab from work lab) [facility] panel 07/2020---showed low cb cap consistent with her sle dx. Assessment & Plan (12/10/2020 3:54 PM CDT): Will continue to monitor the patient with routine labs. +CB-CAP:ec4d on avise panel 3/18 + SONNY in past Hep B and C neg 4/18 Quant gold negative 05/2019 (brought copy of lab from work lab) [facility] panel 07/2020---showed low cb cap consistent with her sle dx. Assessment & Plan (09/14/2020 9:17 AM CDT): Will continue to monitor the patient with routine labs. +CB-CAP:ec4d on avise panel 3/18 + SONNY in past Hep B and C neg 4/18 Quant gold negative 05/2019 (brought copy of lab from work lab) Assessment & Plan (07/26/2020 2:09 PM BUILDING ENGINEER): Will continue to monitor the patient with routine labs. +CB-CAP:ec4d on avise panel 3/18 + SONNY in past Hep B and C neg 4/18 Quant gold negative 05/2019 (brought copy of lab from work lab) Assessment & Plan (07/26/2020 8:44 AM BUILDING ENGINEER): Will continue to monitor the patient with routine labs. +CB-CAP:ec4d on avise panel 3/18 + SONNY in past Hep B and C neg 4/18 Quant gold negative 05/2019 (brought copy of lab from work lab) Assessment & Plan (04/11/2020 11:16 AM BUILDING ENGINEER): Will continue to monitor the patient with routine labs. +CB CAP:ec4d on avise panel 3/18 + SONNY in past Hep B and C neg 4/18 Quant gold negative 05/2019 (brought copy of lab from work lab) Assessment & Plan (01/18/2020 12:14 PM CDT): Will continue to monitor the patient with routine labs. +CB CAP:ec4d on avise panel 3/18 + SONNY in past Hep B and C neg 4/18 Quant gold negative 05/2019 (brought copy of lab from work lab) Assessment & Plan (10/19/2019 12:45 PM CDT): Will continue to monitor the patient with routine labs. +CB CAP:ec4d on avise panel 3/18 + SONNY in past Hep B and C neg 4/18 Quant gold neg 4/18 (scanned labs) Quant gold negative 05/2019 (brought copy of lab from work lab) Assessment & Plan (07/08/2019 8:26 AM BUILDING ENGINEER): Will continue to monitor the patient with routine labs. +CB CAP:ec4d on avise panel 3/18 + SONNY in past Hep B and C neg 4/18 Quant gold neg 4/18 (scanned labs) Assessment & Plan (06/06/2019 8:15 AM BUILDING ENGINEER): Will continue to monitor the patient with routine labs. +CB CAP:ec4d on avise panel 3/18 + SONNY in past Hep B and C neg 4/18 Quant gold neg 4/18 (scanned labs) Assessment & Plan (04/06/2019 8:48 AM BUILDING ENGINEER): Will continue to monitor the patient with routine labs. +CB CAP:ec4d on avise panel 3/18 + SONNY in past Hep B and C neg 4/18 Quant gold neg 4/18 (scanned labs) Assessment & Plan (01/10/2019 8:48 AM CDT): Will continue to monitor the patient with routine labs. +CB CAP:ec4d on avise panel 3/18 + SONNY in past Hep B and C neg 4/18 Quant gold neg 4/18 (scanned labs) Assessment & Plan (02/23/2017 12:55 PM CDT): Will continue to monitor the patient with routine labs. Assessment & Plan (01/08/2017 4:29 PM CDT): Will continue to monitor the patient with routine labs. SLE (systemic lupus erythematosus) 12/02/2016 Assessment & Plan (12/22/2024 9:52 AM CDT): mod cdai. Increase cellcept to 1000mg bid, check cbc/cmp in 2 weeks and per pt's request f/u in 6 weeks instead of 4 weeks. Check labs today. Since her EF is better rake operator allowed us to restart plaquenil 200mg every day and she is tolerating this without any side effects. Check labs today. For her dry mouth she will continue salagen. For her dry eyes advised pt to discuss starting miebo with her opth and try opth oint bid to eyes. Assessment & Plan (11/10/2024 2:42 PM CDT): mod cdai. Increase cellcept to 1000mg bid, check cbc/cmp in 2 weeks and per pt's request f/u in 6 weeks instead of 4 weeks. Check labs today. Since her EF is better rake operator allowed us to restart plaquenil 200mg every day and she is tolerating this without any side effects. Check labs today. For her dry mouth she will continue salagen. For her dry eyes advised pt to discuss starting miebo with her opth and try opth oint bid to eyes. Assessment & Plan (08/01/2024 9:03 AM CDT): Low cdai. Continue cellcept to 1500 mg po qd. Since her EF is better rake operator allowed us to restart plaquenil 200mg every day and she is tolerating this without any side effects. Check labs today. Assessment & Plan (06/20/2024 8:34 AM BUILDING ENGINEER): Low cdai. Continue cellcept to 1500 mg po qd. Since her EF is better rake operator allowed us to restart plaquenil 200mg every day and she is tolerating this without any side effects. Check labs today. Assessment & Plan (03/14/2024 2:09 PM CDT): Low cdai. Continue cellcept to 1500 mg po qd. Since her EF is better rake operator allowed us to restart plaquenil 200mg every day and she is tolerating this without any side effects. Check labs today. Assessment & Plan (12/07/2023 8:29 AM CDT): Low cdai. Seen with Dr. Gunter today. Continue cellcept to 1500 mg po qd. Since her EF is better rake operator allowed us to restart plaquenil 200mg every day and she is tolerating this without any side effects. Check labs today. Assessment & Plan (09/11/2023 3:16 PM CDT): Low cdai. Seen with Dr. Gunter today. Continue cellcept to 1500 mg po qd. Since her EF is better rake operator allowed us to restart plaquenil 200mg every day and she is tolerating this without any side effects. Check labs today. Assessment & Plan (06/25/2023 4:45 PM BUILDING ENGINEER): Continue cellcept to 1500 mg po qd. Since her EF is better to ask rake operator if she can restart plaquenil 200mg every day. Assessment & Plan (04/24/2023 8:12 AM BUILDING ENGINEER): Continue cellcept to 1500 mg po qd. Will continue to hold off restarting hcq due to her hx of arrhythmia until this resolves and she will continue seeing cardiology for this. Assessment & Plan (02/05/2023 8:38 AM CDT): Continue cellcept to 1500 mg po qd. Will continue to hold off restarting hcq due to her hx of arrhythmia until this resolves and she will continue seeing cardiology for this. Assessment & Plan (12/11/2022 2:21 PM CDT): Continue cellcept to 1500 mg po qd. Will continue to hold off restarting hcq due to her hx of arrhythmia until this resolves and she will continue seeing cardiology for this. Assessment & Plan (09/10/2022 8:59 AM CDT): Continue cellcept to 1500 mg po qd. Will hold off restarting hcq due to her hx of arrhythmia until this resolves and she will continue seeing cardiology for this. Seen with Dr. Irving. Assessment & Plan (04/21/2022 3:31 PM BUILDING ENGINEER): Continue cellcept to 1500 mg po qd. Will hold off restarting hcq due to her hx of arrhythmia until this resolves and she will continue seeing cardiology for this. Seen with Dr. Irving. Assessment & Plan (03/21/2022 11:52 AM CDT): Continue cellcept to 1500 mg po qd. Will hold off restarting hcq due to her hx of arrhythmia until this resolves and she will continue seeing cardiology for this. Seen with Dr. Irving. Assessment & Plan (02/20/2022 2:55 PM CDT): Currently on 1000mg cellcept BID and has been holding HCQ and Benlysta. Increase cellcept to 1500mg po every day. Seen with dr irving. Will hold off restarting hcq due to her hx of arrhythmia until this resolves and she will continue seeing cardiology for this. Seen with Dr. Irving. Assessment & Plan (01/17/2022 1:22 PM CDT): Currently on 1000mg cellcept BID and has been holding HCQ and Benlysta due to GI sxs (nausea, diarrhea, lb loss). Is taking Tylenol and NSAID. Had 24hr Holter monitor that showed bouts of unsustained Vtach and is to see a rake operator next Thursday. Joint symptoms have remained stable. No synovitis or joint tendnerness on exam. Right anterior knee with well healed vertical surgical scar, no swelling, slight warmth to palpation. As she appears stable at this time will defer restarting Benlysta. Due to Vtach will remain off HCQ - she notes no benefit with the medication that she could tell. Continue 1000mg cellcept BID (more for autoimmune hepatitis). Return in 4 weeks. Sooner if needed. Seen with Dr. Irving. Assessment & Plan (01/07/2022 8:30 AM CDT): Had R knee replacement on 11/20 and held Benlysta for 4 weeks total, otherwise continued on cellcept and HCQ daily. Restarted Benlysta weekly injections about 3 weeks ago. Now with GI symptoms (watery stools, GI upset). Also with PVCs following surgery that were found on EKG. Subsequent TTE from 12/25 revealed mild regurgitation in all valves and EF 45-50% with mild L ventricular enlargement. Reports some dyspnea over last few days, worse when laying supine. Joints remain fairly stable. Mild amount of synovitis on exam with few tender joints. No adventitious breath sounds with RRR of heart. Will have her stop HCQ and Benlysta and decrease cellcept to 1000mg BID (for autoimmune hepatitis). Will order 24hr Holter monitor. Reviewed recent CBC/CMP/ESR/CRP that were normal. To return in [address] Irving. Assessment & Plan (10/17/2021 3:17 PM CDT): High cdai. 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 Will continue on benlysta sq for her SLE, she started it 2018. Also on cellcept 1500mg po bid. Continue plaquenil to 300mg po every day. Eye exam is utd. Had a hand erosion on 09/[address] irving today. Past history: [...] Lab order given to pt today. Her bobbin dumper allowed us to use diclofenac for her knee oa and joint pain. Assessment & Plan (08/22/2021 4:46 PM CDT): Low cdai. Her lupus is under control with benlysta and cellcept along with plaquenil She continues to have vaginal ulcers dx as lichen planus by alternative financing specialist but better since last visit a month ago, alternative financing specialist started her on intravaginal estrogen supp and pt also stopped her evista. Had both covid 19 vaccines and her booster along with her flu vaccine. Will continue on benlysta sq, she started it 2018. Also on cellcept 1500mg po bid. Continue plaquenil to 300mg po every day. Eye exam is utd. Had a hand erosion on 09/12 US but overall her cdai is low so [...] Lab order given to pt today. Her bobbin dumper allowed us to use diclofenac for her knee oa and joint pain. Assessment & Plan (07/22/2021 4:57 PM BUILDING ENGINEER): Mod cdai. Having more joint swelling. Will check rt hand US to re-evaluate. She continues to have vaginal ulcers dx as lichen planus by alternative financing specialist but no bx done. She has oral ulcers too, will give her rx for triamcinolone dental paste to use prn. Had both covid 19 vaccines and her booster along with her flu vaccine. Will continue on benlysta sq, she started it 2018. Also on cellcept 1500mg po bid. Continue plaquenil to 300mg po every day. Eye exam is utd. F/u in 1 month. Recheck rt hand US to re-evaluate. Had a hand erosion on 09/12 US. Past history: [facility] panel showed low cb [...] Lab order given to pt today. Her bobbin dumper allowed us to use diclofenac for her knee oa and joint pain. Assessment & Plan (03/21/2021 4:46 PM CDT): Low cdai. Has improved. 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 Only works 20 h a week now. Had both covid 19 vaccines and her booster along with her flu vaccine. Will continue on benlysta sq, she started it 2018. Also on cellcept 1500mg po bid. Continue plaquenil to 300mg po every day. Eye exam is utd. Seen with dr irving today. Past history: [...] Lab order given to pt today. Her bobbin dumper allowed us to use diclofenac for her knee oa and joint pain. Assessment & Plan (12/10/2020 3:53 PM CDT): Low cdai. Has improved. Mostly she does [...] Lab order given to pt today. Her bobbin dumper allowed us to use diclofenac for her knee oa and joint pain. Assessment & Plan (09/14/2020 4:20 PM CDT): Low cdai. 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 Only works 20 h a week now. Had both covid [address] irving today. On benlysta sq since 2018. Also on cellcept 1500mg po bid. Continue plaquenil to 300mg po every day. She has improved with higher cellcept dose. Past labs showed + CB CAP. Has [...] Lab order given to pt today. Her bobbin dumper allowed us to use diclofenac for her knee oa and joint pain. 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 Assessment & Plan (07/26/2020 4:37 PM BUILDING ENGINEER): Low-mod cdai. On benlysta sq since 2019. Also on cellcept 1500mg po bid. Continue plaquenil to 300mg po every day. Recheck serologies. Recheck rt hand US. Seen with Dr Irving today. Past labs showed + CB CAP. Has [...] Lab order given to pt today. Her bobbin dumper allowed us to use diclofenac for her knee oa and joint pain. 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 Assessment & Plan (07/26/2020 8:43 AM BUILDING ENGINEER): Low cdai. 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 Flu vaccine is utd. . On benlysta sq since 2018. Also on cellcept 1500mg po bid. Continue plaquenil to 300mg po every day. She has improved with higher cellcept dose. Past labs showed + CB CAP. Has [...] Lab order given to pt today. Her bobbin dumper allowed us to use diclofenac for her knee oa and joint pain. 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 Assessment & Plan (04/11/2020 5:10 PM BUILDING ENGINEER): Low cdai. 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 Flu vaccine is utd. . On benlysta sq since 2019. Also on cellcept 1500mg po bid. Continue plaquenil to 300mg po every day. She has improved with higher cellcept dose. Past labs showed + CB CAP. Has [...] Lab order given to pt today. Her bobbin dumper allowed us to use diclofenac for her knee oa and joint pain. 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 Assessment & Plan (01/18/2020 5:37 PM CDT): Low cdai. Has improved since she changed jobs. On benlysta sq since 2018. Also on cellcept 1500mg po bid. Continue plaquenil to 300mg po every day. She has improved with higher cellcept dose. Past labs showed + CB CAP. Has [...] Lab order given to pt today. Her bobbin dumper allowed us to use diclofenac for her knee oa and joint pain. 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 Assessment & Plan (10/19/2019 12:45 PM CDT): On benlysta sq since 2018. Also on cellcept 1500mg po bid. Mod cdai but improving. Recent wbc low, will continue keeping her off work until 12/23/2019 and re- evaluate end of November. Continue plaquenil to 300mg po every day. She has improved with higher cellcept dose. Past labs showed + CB CAP. Has [...] dx of psoriasis. Will monitor for psoriasis. Labs today. Her bobbin dumper allowed us to use diclofenac for her knee oa and joint pain. Assessment & Plan (07/27/2019 12:51 PM BUILDING ENGINEER): On benlysta sq since 2018. At last visit we increased cellcept to 1500mg po bid, check labs. Mod cdai but improving. Continue plaquenil to 300mg po every day. She has improved with higher cellcept dose. Past labs showed + CB CAP. Has [...] dx of psoriasis. Will monitor for psoriasis. Labs today. Her bobbin dumper allowed us to use diclofenac for her knee oa and joint pain. F/u in 1 mo to recheck labs. Assessment & Plan (06/06/2019 4:09 PM BUILDING ENGINEER): CDAI = 32 High cdai. Increase cellcept to 1500mg po bid, check cbc/cmp in 2 weeks. Continue plaquenil but decrease to 300mg po every day from 400mg po every day due to her lower weight. She has improved with higher cellcept dose. Past labs showed + CB CAP. Has [...] dx of psoriasis. Will monitor for psoriasis. Labs today. Assessment & Plan (04/06/2019 5:06 PM BUILDING ENGINEER): High cdai. She has been on cellcept from hepatology and Benlysta SQ since05/2018. Increase cellcept to 3 tabs in am and 2 tabs in pm. Has hx of + sonny in past but neg on 08/09 [facility] panel.+ CB-CAP. Also hx of low wbc. Has hx of sun rashes, keratoconjunctivitis, dry mouth, oral ulcers. Also had difficulty getting with 2nd child, had to be on prednisone, heparin and aspirin. Symptoms and clinical findings are compatible with SLE. Had a scalp line rash in past but no dx of psoriasis. Will monitor for psoriasis. Spent 30 min with pt and dr irving spent 20 min with pt. Assessment & Plan (01/10/2019 2:54 PM CDT): Mod cdai, she is behind 2 weeks on her benlysta infusion. She has been on cellcept from hepatology and Benlysta SQ since05/2018. Hand u/s showed marked improvement. Will continue present meds. Labs showed + CB CAP. . Has hx of + sonny in past but neg on 08/09 [facility] panel. Also hx of low wbc. Has hx of sun rashes, keratoconjunctivitis, dry mouth, oral ulcers. Also had difficulty getting with 2nd child, had to be on prednisone, heparin and aspirin. Symptoms and clinical findings are compatible with SLE. Had a scalp line rash in past but no dx of psoriasis. Will monitor for psoriasis. Will have an ovarian mass removed 11/20, to stop her benlysta sq 2 weeks before and restart it 2 weeks after if no signs of infection. Assessment & Plan (09/02/2017 4:56 PM CDT): Pt with hx of sonny, cbcaps, oral ulcers, arthritis, hx ofpossible photosensitivity and malar blush/rash. Will call this sle due to these symptoms signs and laboratory. Will also consider using benlysta in this situation. Assessment & Plan (02/23/2017 12:55 PM CDT): Today complains of neck pain, headaches and fatigue. She is going to follow up with a neurologist. She does have a hx of a cervical disc bulge. Agreed with her seeing a neurologist. Discussed in length that her neck is not related to her inflammatory disease that it is most likely degenerative changes. Her CDAI today was low disease activity. She is already on cellcept for her autoimmune hepatitis. She is to continue HCQ. No need for additional DMARDS at this time. Assessment & Plan (01/08/2017 4:28 PM CDT): Patient does have moderate CDAI. Will increase the HCQ to one tab BID. She is to get a baseline eye exam. Will check routine labs today. Assessment & Plan (12/02/2016 4:04 PM CDT): Patient with AVISE testing with positive SONNY and CB-cap. Suspect underlying connective tissue disease. Will therefore start patient on HCQ 1 tablet daily. Patient seen with Dr. Irving while Dr. Maki is out of the office. Positive SONNY (antinuclear antibody) 12/02/2016 Assessment & Plan (02/23/2017 12:55 PM CDT): See #1. Assessment & Plan (01/08/2017 4:29 PM CDT): See #1. Assessment & Plan (12/02/2016 4:05 PM CDT): See #1. Multiple joint pain 11/05/2016 Assessment & Plan (11/05/2016 5:53 PM CDT): Patient with previous dx of chronic fatigue [...] that time. Patient seen with Dr. Maki. Fatigue 03/22/2014 Assessment & Plan (12/11/2022 2:28 PM CDT): Has chronic fatigue and has had sob when she lays down on her side at night. Has hx of chf. Will order sleep study. Assessment & Plan (07/22/2021 4:47 PM BUILDING ENGINEER): Not sleeping well due to hot flashes at night and this could be a cause of her fatigue and mental fog. Gave pt 2nd referral for sleep study and will check tsh also. Assessment & Plan (09/14/2020 2:47 PM CDT): Check tsh. Advised to get sleep study. Episodic tension-type headache 03/22/2014 Chronic migraine without aur a without status migrainosus, not intractable 03/22/2014 Dizzy spells 03/22/2014 Fibromyalgia 06/02/2013 Assessment & Plan (12/22/2024 9:52 AM CDT): On elavil qhs and flexeril. Assessment & Plan (11/10/2024 7:47 AM CDT): On elavil qhs and flexeril. Assessment & Plan (08/01/2024 9:02 AM CDT): On elavil qhs and flexeril. Assessment & Plan (06/20/2024 8:33 AM BUILDING ENGINEER): On elavil qhs and flexeril. Assessment & Plan (03/14/2024 8:21 AM CDT): On elavil qhs and flexeril. Assessment & Plan (12/07/2023 8:29 AM CDT): On elavil qhs and flexeril. Assessment & Plan (09/11/2023 12:57 PM CDT): On elavil qhs and flexeril. Assessment & Plan (06/25/2023 7:42 AM BUILDING ENGINEER): On elavil qhs and flexeril. Assessment & Plan (04/24/2023 8:12 AM BUILDING ENGINEER): On elavil qhs and flexeril. Assessment & Plan (02/05/2023 8:39 AM CDT): On elavil qhs and flexeril. Assessment & Plan (12/11/2022 7:43 AM CDT): On elavil qhs and flexeril. Assessment & Plan (04/21/2022 3:30 PM BUILDING ENGINEER): On elavil qhs and flexeril. Assessment & Plan (02/20/2022 1:01 PM CDT): On elavil qhs and flexeril. Assessment & Plan (10/14/2021 3:11 PM CDT): On elavil qhs and flexeril. Assessment & Plan (08/21/2021 1:25 PM CDT): On elavil qhs and flexeril. Assessment & Plan (07/19/2021 8:45 AM BUILDING ENGINEER): On elavil qhs and flexeril. Assessment & Plan (03/20/2021 3:57 PM CDT): On elavil qhs and flexeril. Assessment & Plan (12/10/2020 11:11 AM CDT): On elavil qhs and flexeril. Assessment & Plan (09/14/2020 9:17 AM CDT): On elavil qhs and flexeril. Assessment & Plan (07/26/2020 4:38 PM BUILDING ENGINEER): On elavil qhs and flexeril. Assessment & Plan (07/26/2020 8:43 AM BUILDING ENGINEER): On elavil qhs and flexeril. Assessment & Plan (04/11/2020 11:16 AM BUILDING ENGINEER): On elavil qhs and flexeril. Assessment & Plan (01/18/2020 12:14 PM CDT): On elavil qhs and flexeril. Assessment & Plan (10/14/2019 3:30 PM CDT): On elavil qhs and flexeril. Assessment & Plan (07/08/2019 8:31 AM BUILDING ENGINEER): On elavil qhs and flexeril. Assessment & Plan (06/06/2019 8:11 AM BUILDING ENGINEER): On elavil qhs and flexeril. Never smoked tobacco 10/02/2011 Autoimmune hepatitis 03/28/2010 Assessment & Plan (12/08/2024 6:55 PM CDT): In remission on mycophenolate. As long as she remains on mycophenolate, the autoimmune hepatitis should remain under control. However, the disease can flare even on immunosuppressive therapy. Routinely, I follow liver biochemistries every 4 months. She will return on an annual basis or when clinically indicated. Assessment & Plan (06/20/2024 2:54 PM BUILDING ENGINEER): No recurrence of autoimmune hepatitis. Normal LFTs for +4 years. On cellcept from GI. Assessment & Plan (03/14/2024 8:21 AM CDT): No recurrence of autoimmune hepatitis. Normal LFTs for +4 years. On cellcept from GI. Assessment & Plan (12/07/2023 8:29 AM CDT): No recurrence of autoimmune hepatitis. Normal LFTs for +4 years. On cellcept from GI. Assessment & Plan (09/11/2023 3:16 PM CDT): No recurrence of autoimmune hepatitis. Normal LFTs for +4 years. On cellcept from GI. Assessment & Plan (06/25/2023 7:43 AM BUILDING ENGINEER): No recurrence of autoimmune hepatitis. Normal LFTs for +4 years. On 1500mg cellcept qd from GI. Assessment & Plan (04/24/2023 8:12 AM BUILDING ENGINEER): No recurrence of autoimmune hepatitis. Normal LFTs for +4 years. On 1500mg cellcept qd from GI. Assessment & Plan (02/05/2023 8:39 AM CDT): No recurrence of autoimmune hepatitis. Normal LFTs for +4 years. On 1500mg cellcept qd from GI. Assessment & Plan (12/11/2022 7:43 AM CDT): No recurrence of autoimmune hepatitis. Normal LFTs for +4 years. On 1500mg cellcept qd from GI. Assessment & Plan (10/16/2022 2:14 PM CDT): In remission on mycophenolate. She understands the importance of remaining on mycophenolate. My fear is that stopping the mycophenolate could lead to a flare of the disease. This would necessitate higher doses of corticosteroids. In light of her other medical issues, I am not convinced that would be in her best interests. I will continue to monitor the labs every 4 months or sooner as clinically indicated. She will return in 1 year. Assessment & Plan (04/23/2022 3:48 PM BUILDING ENGINEER): No recurrence of autoimmune hepatitis. Normal LFTs for +4 years. On 1500mg cellcept qd from GI. Assessment & Plan (01/03/2022 1:56 PM CDT): No recurrence of autoimmune hepatitis. Normal LFTs for +4 years. On 1500mg cellcept BID from GI. Assessment & Plan (10/14/2021 3:11 PM CDT): On cellcept from GI Assessment & Plan (09/05/2021 6:00 PM CDT): In remission on mycophenolate mofetil, based on [...] in 1 year or when clinically indicated. Assessment & Plan (08/21/2021 1:25 PM CDT): On cellcept from GI Assessment & Plan (03/20/2021 3:56 PM CDT): On cellcept from GI Assessment & Plan (12/10/2020 11:11 AM CDT): On cellcept from GI Assessment & Plan (09/14/2020 9:18 AM CDT): On cellcept from GI Assessment & Plan (07/26/2020 4:38 PM BUILDING ENGINEER): On cellcept from GI Assessment & Plan (07/26/2020 8:43 AM BUILDING ENGINEER): On cellcept from GI Assessment & Plan (04/11/2020 11:16 AM BUILDING ENGINEER): On cellcept from GI Assessment & Plan (02/09/2020 6:53 PM CDT): In remission based on normal liver biopsy. Since she requires mycophenolate for control of other problems, this will continue to treat the autoimmune hepatitis. If this agent is not thought to be helping her other rheumatologic diseases, I would certainly consider tapering the dose and even stopping the medicine over the course of several months. She will return on an annual basis or when clinically indicated. Assessment & Plan (01/18/2020 12:15 PM CDT): On cellcept from GI Assessment & Plan (10/14/2019 3:33 PM CDT): On cellcept from GI Assessment & Plan (07/08/2019 8:30 AM BUILDING ENGINEER): On cellcept form GI Assessment & Plan (04/06/2019 8:48 AM BUILDING ENGINEER): On cellcept form GI Assessment & Plan (02/05/2019 4:23 PM CDT): In remission on mycophenolate. She had multiple questions regarding the need for a biopsy. She is concerned there may be inflammatory changes not reflected in the blood tests and this could account for her fatigue. I explained a liver biopsy may show inflammation, however, I am not convinced adding additional immunosuppression would make much of a difference, particularly, because I would have no way to follow the response other than to perform additional liver biopsies. I am not convinced she should go on corticosteroids due to their long-term side effects. I am also not convinced her fatigue is related to autoimmune hepatitis. I will continue to monitor labs on a regular basis. She will return on an annual basis or when clinically indicated. Assessment & Plan (01/10/2019 8:48 AM CDT): On cellcept form GI Assessment & Plan (01/29/2018 5:40 PM CDT): In remission on CellCept. Although we could stop the CellCept to see if the disease remains in remission, if the disease would flare, this would require relatively high-dose corticosteroid therapy. She is not enthusiastic about this option. There are no obvious long-term side effects of chronic CellCept use, beyond the usual risks of bone marrow suppression and opportunistic infections. I will continue to monitor the labs every 4 months. She will return on an annual basis or when clinically indicated. Assessment & Plan (02/23/2017 12:55 PM CDT): On Cellcept followed by hepatology. Assessment & Plan (12/02/2016 4:03 PM CDT): See Dr. Harris. On Cellcept. Assessment & Plan (11/05/2016 5:53 PM CDT): See Dr. Harris. On Cellcept. Resolved Problems Problem Noted Date Diagnosed Date Resolved Date Pain of both hip joints 04/06/2019 03/0 08/2020 Assessment & Plan (01/18/2020 12:13 PM CDT): Mild lt hip oa and bilat SI joint oa on recent xrays. Hip pain has resolved now has lt knee pain and she will see ortho. Assessment & Plan (07/08/2019 8:31 AM BUILDING ENGINEER): Mild lt hip oa and bilat SI joint oa on recent xrays. Hip pain has resolved now has lt knee pain and she will see ortho. Assessment & Plan (06/06/2019 4:09 PM BUILDING ENGINEER): Mild lt hip oa and bilat SI joint oa on recent xrays. Hip pain has resolved now has lt knee pain and she will see ortho. Assessment & Plan (04/06/2019 5:03 PM BUILDING ENGINEER): Check xrays. Encounters Date Type Department Care Team Description 01/12/2025 Telephone [facility] [address] [place] [phone] Charlotte Okeefe 12/26/2024 Results Follow-Up [address] [phone] Vanessa Leyva PA Urinalysis reflex to microscopic, Erythrocyte sedimentation rate, CBC with auto differential, Additional followed-up results: 7 12/22/2024 1:30 PM CDT Office Visit [facility] [address] [place] [phone] Vanessa Leyva PA Systemic lupus erythematosus, unspecified SLE type, unspecified organ involvement status (HCC) (Primary Dx); Psoriatic arthritis (HCC); Sjogren's syndrome, with unspecified organ involvement; Fibromyalgia; Encounter for long-term (current) use of medications 12/19/2024 Results Follow-Up [address] [phone] Vanessa Leyva PA SCAN - RADIOLOGY/IMAGING 12/19/2024 Orders Only [facility] [address] [place] [phone] Vanessa Leyva PA 12/08/2024 4:20 PM CDT Office Visit [facility] [address] [facility] 12[address] [place] [address] [place] [address] Chris Harris MD Autoimmune hepatitis (HCC) (Primary Dx) 12/05/2024 2:30 PM CDT Procedure visit [facility] [address] [facility] [address] [place] [phone] Zeina Crenshaw MD Intractable chronic migraine without aura and without status migrainosus (Primary Dx) 11/11/2024 Results Follow-Up [address] [phone] Vanessa Leyva PA Urinalysis reflex to microscopic, Erythrocyte sedimentation rate, CBC with auto differential, Additional followed-up results: 6 11/10/2024 1:30 PM CDT Office Visit [address] [phone] Vanessa Leyva PA Systemic lupus erythematosus, unspecified SLE type, unspecified organ involvement status (HCC) (Primary Dx); Psoriatic arthritis (HCC); Sjogren's syndrome, with unspecified organ involvement; Fibromyalgia; Encounter for long-term (current) use of medications; Neck pain 11/03/2024 Results Follow-Up [address] [phone] Vanessa Leyva PA SCAN - RADIOLOGY/IMAGING 11/03/2024 Orders Only [address] [phone] Vanessa Leyva PA from Last 3 Months Surgical History Surgery Date Site/Laterality Comments LIVER BIOPSY BREAST BIOPSY LAPAROSCOPIC CHOLECYSTECTOMY TONSILLECTOMY KNEE ARTHROSCOPY Medical History Medical History Date Comments Headache Family History Medical History Relation Name Comments Diabetes type II Father Family hist ory of type 2 diabetes mellitus - (Added by TW Conv) Sudden Father Family history of sudden - (Added by TW Conv) Breast cancer Mother Family history of malignant neoplasm of female breast - (Added by TW Conv) Spinal stenosis Mother Breast cancer Paternal Grandmother Family history of malignant neoplasm of breast - (Added by TW Conv) Relation Name Status Comments Father Mother Paternal Grandmother Social History Tobacco Use Types Packs/Day Years Used Date Smoking Tobacco: Never Smokeless Tobacco: Never Tobacco Cessation:Counseling Given: [...] on file Legal Sex Female 7:58 AM BUILDING ENGINEER Gender Identity Not on file Sexual Orientation Not on file Occupation Industry Job Start Date Job End Date Nurse Not on file Not on file Not on file Obstetrics History Last Filed Vital Signs Vital Sign Reading Time Taken Comments Blood Pressure 110/68 12/22/2024 1:39 PM CDT Pulse 70 12/22/2024 1:39 PM CDT Temperature 36.7 C (98 F) 12/08/2024 4:11 PM CDT Respiratory Rate 16 12/05/2024 2:24 PM CDT Oxygen Saturation 100% 12/22/2024 1:39 PM CDT Inhaled Oxygen Concentration - - Weight 68.9 kg (152 lb) 12/22/2024 1:39 PM CDT Height 174 cm (5' 8.5) 12/22/2024 1:39 PM CDT Body Mass Index 22.78 12/22/2024 1:39 PM CDT Plan of Treatment Health Maintenance Due Date Last Done Comments Breast Cancer Screening-Mammogram 1964 Colon Cancer Screening-Colonoscopy 1965 Depression Screening 1964 Hepatitis C Screening 1964 Hepatitis B Screening 1982 Regular Well Visit/Exam 18-64 1982 Pneumococcal vaccine <65 (1 of 2 - PCV) 1983 Cervical Cancer Screening 03/06/2023 03/06/2022 Covid-19 Vaccine (5 2023-2 5 season) 2024 06/21/2021, 01/05/2021, 06/02/2020, Additional history exists Influenza Vaccine (#1) 2025 03/08/2024, 2022 DTaP/Tdap/Td Vaccine (2 - Td or Tdap) 03/18/2031 03/18/2021 Zoster Vaccine Completed 09/16/2021, 03/18/2021 Procedures Procedure Name Priority Date/Time Associated Diagnosis Comments NOTE Routine 12/22/2024 2:56 PM CDT ANTI-DOUBLE STRANDED DNA ANTIBODIES Routine 12/22/2024 2:56 PM CDT Systemic lupus erythematosus, unspecified SLE type, unspecified organ involvement status (HCC) Psoriatic arthritis (HCC) Sjogren's syndrome, with unspecified organ involvement Fibromyalgia Encounter for long-term (current) use of medications PROTEIN / CREATININE RATIO, URINE, RANDOM Routine 12/22/2024 2:56 PM CDT Systemic lupus erythematosus, unspecified SLE type, unspecified organ involvement status (HCC) Psoriatic arthritis (HCC) Sjogren's syndrome, with unspecified organ involvement Fibromyalgia Encounter for long-term (current) use of medications COMPREHENSIVE METABOLIC PANEL Routine 12/22/2024 2:56 PM CDT Systemic lupus erythematosus, unspecified SLE type, unspecified organ involvement status (HCC) Psoriatic arthritis (HCC) Sjogren's syndrome, with unspecified organ involvement Fibromyalgia Encounter for long-term (current) use of medications CRP (ACUTE PHASE) Routine 12/22/2024 2:5 6 PM CDT Systemic lupus erythematosus, unspecified SLE type, unspecified organ involvement status (HCC) Psoriatic arthritis (HCC) Sjogren's syndrome, with unspecified organ involvement Fibromyalgia Encounter for long-term (current) use of medications C3 COMPLEMENT Routine 12/22/2024 2:56 PM CDT Systemic lupus erythematosus, unspecified SLE type, unspecified organ involvement status (HCC) Psoriatic arthritis (HCC) Sjogren's syndrome, with unspecified organ involvement Fibromyalgia Encounter for long-term (current) use of medications C4 COMPLEMENT Routine 12/22/2024 2:56 PM CDT Systemic lupus erythematosus, unspecified SLE type, unspecified organ involvement status (HCC) Psoriatic arthritis (HCC) Sjogren's syndrome, with unspecified organ involvement Fibromyalgia Encounter for long-term (current) use of medications CBC WITH AUTO DIFFERENTIAL Routine 12/22/2024 2:56 PM CDT Systemic lupus erythematosus, unspecified SLE type, unspecified organ involvement status (HCC) Psoriatic arthritis (HCC) Sjogren's syndrome, with unspecified organ involvement Fibromyalgia Encounter for long-term (current) use of medications ERYTHROCYTE SEDIMENTATION RATE Routine 12/22/2024 2:56 PM CDT Systemic lupus erythematosus, unspecified SLE type, unspecified organ involvement status (HCC) Psoriatic arthritis (HCC) Sjogren's syndrome, with unspecified organ involvement Fibromyalgia Encounter for long-term (current) use of medications URINALYSIS AND REFLEX TO MICROSCOPIC Routine 12/22/2024 2:56 PM CDT Systemic lupus erythematosus, unspecified SLE type, unspecified organ involvement status (HCC) Psoriatic arthritis (HCC) Sjogren's syndrome, with unspecified organ involvement Fibromyalgia Encounter for long-term (current) use of medications SCAN - RADIOLOGY/IMAGING 12/19/2024 1:44 PM CDT BOTOX INJECTION Routine 12/05/2024 2:30 PM CDT Intractable chronic migraine without aura and without status migrainosus CBC WITH AUTO DIFFERENTIAL Routine 12/05/2024 1:14 PM CDT COMPREHENSIVE METABOLIC PANEL Routine 12/05/2024 1:14 PM CDT ANTI-DOUBLE STRANDED DNA ANTIBODIES Routine 11/10/2024 3:07 PM CDT Systemic lupus erythematosus, unspecified SLE type, unspecified organ involvement status (HCC) Psoriatic arthritis (HCC) Sjogren's syndrome, with unspecified organ involvement Fibromyalgia Encounter for long-term (current) use of medications PROTEIN / CREATININE RATIO, URINE, RANDOM Routine 11/10/2024 3:07 PM CDT Systemic lupus erythematosus, unspecified SLE type, unspecified organ involvement status (HCC) Psoriatic arthritis (HCC) Sjogren's syndrome, with unspecified organ involvement Fibromyalgia Encounter for long-term (current) use of medications COMPREHENSIVE METABOLIC PANEL Routine 11/10/2024 3:07 PM CDT Systemic lupus erythematosus, unspecified SLE type, unspecified organ involvement status (HCC) Psoriatic arthritis (HCC) Sjogren's syndrome, with unspecified organ involvement Fibromyalgia Encounter for long-term (current) use of medications CRP (ACUTE PHASE) Routine 11/10/2024 3:0 7 PM CDT Systemic lupus erythematosus, unspecified SLE type, unspecified organ involvement status (HCC) Psoriatic arthritis (HCC) Sjogren's syndrome, with unspecified organ involvement Fibromyalgia Encounter for long-term (current) use of medications C3 COMPLEMENT Routine 11/10/2024 3:07 PM CDT Systemic lupus erythematosus, unspecified SLE type, unspecified organ involvement status (HCC) Psoriatic arthritis (HCC) Sjogren's syndrome, with unspecified organ involvement Fibromyalgia Encounter for long-term (current) use of medications C4 COMPLEMENT Routine 11/10/2024 3:07 PM CDT Systemic lupus erythematosus, unspecified SLE type, unspecified organ involvement status (HCC) Psoriatic arthritis (HCC) Sjogren's syndrome, with unspecified organ involvement Fibromyalgia Encounter for long-term (current) use of medications CBC WITH AUTO DIFFERENTIAL Routine 11/10/2024 3:07 PM CDT Systemic lupus erythematosus, unspecified SLE type, unspecified organ involvement status (HCC) Psoriatic arthritis (HCC) Sjogren's syndrome, with unspecified organ involvement Fibromyalgia Encounter for long-term (current) use of medications ERYTHROCYTE SEDIMENTATION RATE Routine 11/10/2024 3:07 PM CDT Systemic lupus erythematosus, unspecified SLE type, unspecified organ involvement status (HCC) Psoriatic arthritis (HCC) Sjogren's syndrome, with unspecified organ involvement Fibromyalgia Encounter for long-term (current) use of medications URINALYSIS AND REFLEX TO MICROSCOPIC Routine 11/10/2024 3:07 PM CDT Systemic lupus erythematosus, unspecified SLE type, unspecified organ involvement status (HCC) Psoriatic arthritis (HCC) Sjogren's syndrome, with unspecified organ involvement Fibromyalgia Encounter for long-term (current) use of medications SCAN - RADIOLOGY/IMAGING 11/03/2024 10:08 AM CDT from Last 3 Months Results * Anti-double stranded DNA abs (12/22/2024 2:56 PM CDT) Pathologist [facility] [place] DNA (DS) ab <1 IU/mL [facility] Comment: IU/mL Interpretation < or = 4 Negative 5-9 Indeterminate > or = 10 Positive Blood 12/22/2024 2:56 PM CDT 12/22/2024 2:56 PM CDT Vanessa RODRIGES LAB BLOOD ORDERAB LES Final Result Performing Organization Address [facility]/ZIP Co de Phone Number [facility] [address] [place] [address] * NOTE (12/22/2024 2:56 PM CDT) Pathologist [facility] [place] Note [facility] Comment: This urine was analyzed for the presence of WBC, RBC, bacteria, casts, and other formed elements. Only those elements seen were reported. 12/22/2024 2:56 PM CDT 12/22/2024 2:56 PM CDT Vanessa RODRIGES LAB BLOOD ORDERAB LES Final Result Performing Organization Address City/[facility]/ZIP Co de Phone Number [facility] [address] [place] [address] * C4 complement (12/22/2024 2:56 PM CDT) Complement component C4C 27 15 - 57 mg/dL [facility] Blood 12/22/2024 2:56 PM CDT 12/22/2024 2:56 PM CDT Vanessa RODRIGES LAB BLOOD ORDERAB LES Final Result [facility] [address] [place] [phone] * (ABNORMAL) Urinalysis reflex to microscopic (12/22/2024 2:56 PM CDT) Color, ur YELLOW YELLOW [facility] Appearance, ur CLEAR CLEAR [facility] Specific gravity 1.006 1.001 - 1.035 [facility] pH, ur 7.5 5.0 - 8.0 [facility] Glucose, ur NEGATIVE NEGATIVE [facility] Bilirubin, ur NEGATIVE NEGATIVE [facility] Ketones, ur NEGATIVE NEGATIVE [facility] Blood, ur NEGATIVE NEGATIVE [facility] Protein, ur, quant NEGATIVE NEGATIVE [facility] Nitrites, ur NEGATIVE NEGATIVE [facility] Leukocyte esterase, ur TRACE(A) NEGATIVE [facility] WBC, ur NONE SEEN < OR = 5 /HPF [facility] RBC, ur NONE SEEN < OR = 2 /HPF [facility] Epithelial cells, squamous, ur NONE SEEN < OR = 5 /HPF [facility] Bacteria, ur, quant NONE SEEN NONE SEEN /HPF [facility] Hyaline cast NONE SEEN NONE SEEN /LPF [facility] Urine 12/22/2024 2:56 PM CDT 12/22/2024 2:56 PM CDT Vanessa RODRIGES LAB URINE ORDERAB LES Final Result [facility] [address] [phone] * CBC with auto differential (12/22/2024 2:56 PM CDT) [facility] WBC 4.7 3.8 - 10.8 Thousand/u L [facility] RBC, POC 4.10 3.80 - 5.10 Million/uL [facility] Hgb 12.8 11.7 - 15.5 g/dL [facility] Hct 39.9 35.0 - 45.0 % [facility] MCV 97.3 80.0 - 100.0 fL [facility] MCH 31.2 27.0 - 33.0 pg [facility] MCHC 32.1 32.0 - 36.0 g/dL [facility] Comment: For adults, a slight decrease in the calculated MCHC value (in the range of 30 to 32 g/dL) is most likely not clinically significant; however, it should be interpreted with caution in correlation with other red cell parameters and the patient's clinical condition. Rdw 12.0 11.0 - 15.0 % [facility] Platelets 241 140 - 400 Thousand/u L [facility] MPV 8.6 7.5 - 12.5 fL [facility] Neutrophils, abs 2,242 1,500 - 7,800 cells/uL [facility] Lymphocytes, abs 1,810 850 - 3,900 cells/uL [facility] Monocyte abs 465 200 - 950 cells/uL [facility] Eosinophils, abs 122 15 - 500 cells/uL [facility] Basophils, abs 61 0 - 200 cells/uL [facility] Neutrophils 47.7 % [facility] Lymphocyte pct 38.5 % [facility] Monocytes 9.9 % [facility] Eosinophils 2.6 % [facility] Basophils 1.3 % [facility] Blood 12/22/2024 2:56 PM CDT 12/22/2024 2:56 PM CDT Vanessa RODRIGES LAB BLOOD ORDERAB LES Final Result Performing Organization Address [facility] Co de Phone Number [facility] [address] [place] [address] * (ABNORMAL) Protein / creatinine ratio, urine, random (12/22/2024 2:56 PM CDT) Pathologist [facility] [place] Creatinine, ur 29 20 - 275 mg/dL [facility] Protein/creatin ine ratio NOTE 24 - 184 mg/g creat [facility] Comment: THE PROTEIN VALUE IS LESS THAN 4 MG/DL THEREFORE WE ARE UNABLE TO CALCULATE EXCRETION AND/OR CREATININE RATIO. Protein/Creatin ine Ratio NOTE 0.024 - 0.184 mg/mg creat [facility] Protein, ur, quant <4(L) 5 - 24 mg/dL [facility] Urine 12/22/2024 2:56 PM CDT 12/22/2024 2:56 PM CDT Vanessa RODRIGES LAB URINE ORDERAB LES Final Result Performing Organization Address [facility] Co de Phone Number [facility] [address] [place] [address] * Erythrocyte sedimentation rate (12/22/2024 2:56 PM CDT) [facility] Erythrocyte sedimentation rate 9 < OR = 30 mm/h [facility] Blood 12/22/2024 2:56 PM CDT 12/22/2024 2:56 PM CDT Vanessa RODRIGES LAB BLOOD ORDERAB LES Final Result Performing Organization Address [facility] Co de Phone Number [facility] [address] [place] [address] * C3 complement (12/22/2024 2:56 PM CDT) Pathologist [facility] [place] Complement component C3C 136 83 - 193 mg/dL [facility] Blood 12/22/2024 2:56 PM CDT 12/22/2024 2:56 PM CDT Vanessa RODRIGES LAB BLOOD ORDERAB LES Final Result Performing Organization Address [facility] Co de Phone Number [facility] [address] [place] [address] * CRP (acute phase) (12/22/2024 2:56 PM CDT) [facility] C-RP <3.0 <8.0 mg/L [facility] Blood 12/22/2024 2:56 PM CDT 12/22/2024 2:56 PM CDT Vanessa RODRIGES LAB BLOOD ORDERAB LES Final Result Performing Organization Address [facility] de Phone Number [facility] [address] [place] [address] * Comprehensive metabolic panel (12/22/2024 2:56 PM CDT) [facility] Glucose 80 65 - 99 mg/dL [facility] Comment: Fasting reference interval BUN 16 7 - 25 mg/dL [facility] Creatinine 0.98 0.50 - 1.05 mg/dL [facility] eGFR 66 > OR = 60 mL/min/1.7 3m2 [facility] BUN/creat ratio SEE NOTE: 6 - 22 (calc) [facility] Comment: Not Reported: BUN and Creatinine are within reference range. Sodium 141 135 - 146 mmol/L [facility] Potassium, pl 4.2 3.5 - 5.3 mmol/L [facility] Chloride 101 98 - 110 mmol/L [facility] CO2 30 20 - 32 mmol/L [facility] Calcium 9.8 8.6 - 10.4 mg/dL [facility] Protein, sr 7.4 6.1 - 8.1 g/dL [facility] Albumin 5.1 3.6 - 5.1 g/dL [facility] GLOBULIN 2.3 1.9 - 3.7 g/dL (calc) [facility] Alb/glob ratio 2.2 1.0 - 2.5 (calc) [facility] Bilirubin, total 0.5 0.2 - 1.2 mg/dL [facility] Alk phos 76 37 - 153 U/L [facility] AST 26 10 - 35 U/L [facility] ALT (SGPT) 22 6 - 29 U/L [facility] Blood 12/22/2024 2:56 PM CDT 12/22/2024 2:56 PM CDT Vanessa RODRIGES LAB BLOOD ORDERAB LES Final Result [facility] [address] [place] [address] * SCAN - RADIOLOGY/IMAGING (12/19/2024 1:44 PM CDT) Anatomical Region Laterality Modality Other Vanessa RODRIGES F inal Result * Botox Injection (12/05/2024 2:30 PM CDT) Narrative Genie Sky MA - 12/05/2024 2:30 PM CDT Genie Sky MA 12/07/2024 8:51 AM Botox Injection Performed by: Zeina Crenshaw MD Authorized by: Zeina Crenshaw MD [place] Protocol: Procedure Details - Botox Injection: Procedure Details: See botox flow sheet for details on injection sights and amounts Zeina Crenshaw MD IN CLINIC/BEDSIDE ORDERABLES Final Result * CBC with auto differential (12/05/2024 1:14 PM CDT) Pathologist [facility] [place] WBC 4.0 3.8 - 10.8 Thousand/u L [facility] RBC, POC 3.92 3.80 - 5.10 Million/uL [facility] Hgb 12.3 11.7 - 15.5 g/dL [facility] Hct 37.9 35.0 - 45.0 % [facility] MCV 96.7 80.0 - 100.0 fL [facility] MCH 31.4 27.0 - 33.0 pg [facility] MCHC 32.5 32.0 - 36.0 g/dL [facility] Comment: For adults, a slight decrease in the calculated MCHC value (in the range of 30 to 32 g/dL) is most likely not clinically significant; however, it should be interpreted with caution in correlation with other red cell parameters and the patient's clinical condition. Rdw 12.3 11.0 - 15.0 % [facility] Platelets 220 140 - 400 Thousand/u L [facility] MPV 8.6 7.5 - 12.5 fL [facility] Neutrophils, abs 2,036 1,500 - 7,800 cells/uL [facility] Lymphocytes, abs 1,400 850 - 3,900 cells/uL [facility] Monocyte abs 396 200 - 950 cells/uL [facility] Eosinophils, abs 140 15 - 500 cells/uL [facility] Basophils, abs 28 0 - 200 cells/uL [facility] Neutrophils 50.9 % [facility] Lymphocyte pct 35.0 % [facility] Monocytes 9.9 % [facility] Eosinophils 3.5 % [facility] Basophils 0.7 % [facility] 12/05/2024 1:14 PM CDT 12/05/2024 1:17 PM CDT Narrative [facility] - 12/06/2024 4:40 AM CDT FASTING:NO MULTIPLE COLLECTION TIMES FOR SAME TEST TYPE. FASTING: NO us Vanessa RODRIGES LAB BLOOD ORDERAB LES Final Result [facility] [address] [address] * Comprehensive metabolic panel (12/05/2024 1:14 PM CDT) Glucose 85 65 - 139 mg/dL [facility] Comment: Non-fasting reference interval BUN 11 7 - 25 mg/dL [facility] Creatinine 0.90 0.50 - 1.05 mg/dL [facility] eGFR 73 > OR = 60 mL/min/1.7 3m2 [facility] BUN/creat ratio SEE NOTE: 6 - 22 (calc) [facility] Comment: Not Reported: BUN and Creatinine are within reference range. Sodium 141 135 - 146 mmol/L [facility] Potassium, pl 4.2 3.5 - 5.3 mmol/L [facility] Chloride 103 98 - 110 mmol/L [facility] CO2 31 20 - 32 mmol/L [facility] Calcium 9.4 8.6 - 10.4 mg/dL [facility] Protein, sr 6.8 6.1 - 8.1 g/dL [facility] Albumin 4.7 3.6 - 5.1 g/dL [facility] GLOBULIN 2.1 1.9 - 3.7 g/dL (calc) [facility] Alb/glob ratio 2.2 1.0 - 2.5 (calc) [facility] Bilirubin, total 0.5 0.2 - 1.2 mg/dL [facility] Alk phos 63 37 - 153 U/L [facility] AST 22 10 - 35 U/L [facility] ALT (SGPT) 20 6 - 29 U/L [facility] 12/05/2024 1:14 PM CDT 12/05/2024 1:17 PM CDT Narrative [facility] - 12/06/2024 4:40 AM CDT FASTING:NO MULTIPLE COLLECTION TIMES FOR SAME TEST TYPE. FASTING: NO Vanessa RODRIGES LAB BLOOD ORDERAB LES Final Result Performing Organization Address [facility] de Phone Number [facility] [address] [place] [address] * Anti-double stranded DNA abs (11/10/2024 3:07 PM CDT) Pathologist [facility] [place] DNA (DS) ab <1 IU/mL [facility] Comment: IU/mL Interpretation < or = 4 Negative 5-9 Indeterminate > or = 10 Positive Blood 11/10/2024 3:07 PM CDT 11/10/2024 3:09 PM CDT Vanessa RODRIGES LAB BLOOD ORDERAB LES Final Result Performing Organization Address [facility] de Phone Number [facility] [address] [place] [address] * C4 complement (11/10/2024 3:07 PM CDT) [facility] Complement component C4C 27 15 - 57 mg/dL [facility] Blood 11/10/2024 3:07 PM CDT 11/10/2024 3:09 PM CDT Vanessa RODRIGES LAB BLOOD ORDERAB LES Final Result Performing Organization Address [facility] de Phone Number [facility] [address] [place] [address] * Urinalysis reflex to microscopic (11/10/2024 3:07 PM CDT) Color, ur YELLOW YELLOW [facility] Appearance, ur CLEAR CLEAR [facility] Specific gravity 1.006 1.001 - 1.035 [facility] pH, ur 6.0 5.0 - 8.0 [facility] Glucose, ur NEGATIVE NEGATIVE [facility] Bilirubin, ur NEGATIVE NEGATIVE [facility] Ketones, ur NEGATIVE NEGATIVE [facility] Blood, ur NEGATIVE NEGATIVE [facility] Protein, ur, quant NEGATIVE NEGATIVE [facility] Nitrites, ur NEGATIVE NEGATIVE [facility] Leukocyte esterase, ur NEGATIVE NEGATIVE [facility] Urine 11/10/2024 3:07 PM CDT 11/10/2024 3:09 PM CDT Vanessa RODRIGES LAB URINE ORDERAB LES Final Result [facility] [address] [facility] [place] [address] * (ABNORMAL) CBC with auto differential (11/10/2024 3:07 PM CDT) Pathologist [facility] [place] WBC 4.0 3.8 - 10.8 Thousand/u L [facility] RBC, POC 3.81 3.80 - 5.10 Million/uL [facility] Hgb 11.7 11.7 - 15.5 g/dL [facility] Hct 36.8 35.0 - 45.0 % [facility] MCV 96.6 80.0 - 100.0 fL [facility] MCH 30.7 27.0 - 33.0 pg [facility] MCHC 31.8(L) 32.0 - 36.0 g/dL [facility] Comment: For adults, a slight decrease in the calculated MCHC value (in the range of 30 to 32 g/dL) is most likely not clinically significant; however, it should be interpreted with caution in correlation with other red cell parameters and the patient's clinical condition. Rdw 11.9 11.0 - 15.0 % [facility] Platelets 202 140 - 400 Thousand/u L [facility] MPV 8.4 7.5 - 12.5 fL [facility] Neutrophils, abs 2,036 1,500 - 7,800 cells/uL [facility] Lymphocytes, abs 1,356 850 - 3,900 cells/uL [facility] Monocyte abs 408 200 - 950 cells/uL [facility] Eosinophils, abs 160 15 - 500 cells/uL [facility] Basophils, abs 40 0 - 200 cells/uL [facility] Neutrophils 50.9 % [facility] Lymphocyte pct 33.9 % [facility] Monocytes 10.2 % [facility] Eosinophils 4.0 % [facility] Basophils 1.0 % [facility] Blood 11/10/2024 3:07 PM CDT 11/10/2024 3:09 PM CDT Vanessa RODRIGES LAB BLOOD ORDERAB LES Final Result Performing Organization Address [facility] de Phone Number [facility] [address] [place] [address] * (ABNORMAL) Protein / creatinine ratio, urine, random (11/10/2024 3:07 PM CDT) Pathologist [facility] [place] Creatinine, ur 30 20 - 275 mg/dL [facility] Protein/creatin ine ratio NOTE 24 - 184 mg/g creat [facility] Comment: THE PROTEIN VALUE IS LESS THAN 4 MG/DL THEREFORE WE ARE UNABLE TO CALCULATE EXCRETION AND/OR CREATININE RATIO. Protein/Creatin ine Ratio NOTE 0.024 - 0.184 mg/mg creat [facility] Protein, ur, quant <4(L) 5 - 24 mg/dL [facility] Urine 11/10/2024 3:07 PM CDT 11/10/2024 3:09 PM CDT Vanessa RODRIGES LAB URINE ORDERAB LES Final Result Performing Organization Address [facility] Co de Phone Number [facility] [address] [place] [address] * Erythrocyte sedimentation rate (11/10/2024 3:07 PM CDT) Pathologist [facility] Erythrocyte sedimentation rate 6 < OR = 30 mm/h [facility] Blood 11/10/2024 3:07 PM CDT 11/10/2024 3:09 PM CDT Vanessa RODRIGES LAB BLOOD ORDERAB LES Final Result Performing Organization Address [facility] Co de Phone Number [facility] [address] [place] [address] * C3 complement (11/10/2024 3:07 PM CDT) Pathologist [facility] [place] Complement component C3C 131 83 - 193 mg/dL [facility] Blood 11/10/2024 3:07 PM CDT 11/10/2024 3:09 PM CDT Vanessa RODRIGES LAB BLOOD ORDERAB LES Final Result Performing Organization Address [facility] Co de Phone Number [facility] [address] [place] [address] * CRP (acute phase) (11/10/2024 3:07 PM CDT) Pathologist [facility] [place] C-RP <3.0 <8.0 mg/L [facility] Blood 11/10/2024 3:07 PM CDT 11/10/2024 3:09 PM CDT Vanessa RODRIEGS LAB BLOOD ORDERAB LES Final Result Performing Organization Address [facility] Co de Phone Number [facility] [address] [place] [address] * Comprehensive metabolic panel (11/10/2024 3:07 PM CDT) Pathologist [facility] Glucose 73 65 - 99 mg/dL [facility] Comment: Fasting reference interval BUN 15 7 - 25 mg/dL [facility] Creatinine 0.93 0.50 - 1.05 mg/dL [facility] eGFR 70 > OR = 60 mL/min/1.7 3m2 [facility] BUN/creat ratio SEE NOTE: 6 - 22 (calc) [facility] Comment: Not Reported: BUN and Creatinine are within reference range. Sodium 141 135 - 146 mmol/L [facility] Potassium, pl 4.2 3.5 - 5.3 mmol/L [facility] Chloride 102 98 - 110 mmol/L [facility] CO2 30 20 - 32 mmol/L [facility] Calcium 9.4 8.6 - 10.4 mg/dL [facility] Protein, sr 6.6 6.1 - 8.1 g/dL [facility] Albumin 4.7 3.6 - 5.1 g/dL [facility] GLOBULIN 1.9 1.9 - 3.7 g/dL (calc) [facility] Alb/glob ratio 2.5 1.0 - 2.5 (calc) [facility] Bilirubin, total 0.5 0.2 - 1.2 mg/dL [facility] Alk phos 68 37 - 153 U/L [facility] AST 21 10 - 35 U/L [facility] ALT (SGPT) 18 6 - 29 U/L [facility] Blood 11/10/2024 3:07 PM CDT 11/10/2024 3:09 PM CDT Vanessa RODRIGES LAB BLOOD ORDERAB LES Final Result [facility] [address] [address] * SCAN - RADIOLOGY/IMAGING (11/03/2024 10:08 AM CDT) Anatomical Region Laterality Modality Other Vanessa Crawford inal Result from Last 3 Months Insurance ANTHEM ACCESS ANTHEM ACCESS ANTHEM ACCESS ANTHEM ACCESS Care Teams Senior Executive Assistant Relationship Specialty Start Date End Date Sylvia Garcia PA [address] [place] [address] PCP - General Physician Sole Leveling Machine Operator 06/20/24 Chris Harris MD Referring Physician Gastroenterology 08/25/17 Keren Edwards, arch support maker Failure Coordinator 11/05/22 Farhat Gunter MD [address] [place] [address] Consulting Physician Rheumatology 05/22/23 Ginny Alonso arch support maker Failure Coordinator 06/05/23 Trev Jane MD PhD Referring Physician Cardiology 12/10/23
== END 2025-01-19 12:06 | disposition home or self-care (01) ==
LOC: CHSIMG 12:08
PROVIDERS: PCP Physician Assistant
DX: Z12.31 Encounter for screening mammogram for malignant neoplasm of breast (principal); R92.8 Other abnormal and inconclusive findings on diagnostic imaging of breast
CPT/HCPCS: 77063; 77067

== ENCOUNTER 2025-03-13 10:27 | Outpatient (CLI) | payer BC, SELFPAY ==
--- NOTE | ~2025-03-13 | MM_ITS ---
EXAMINATION: MM diagnostic jaleel LT w cristóbal INDICATION: 59-year old female; BI-RADS 0, callback to evaluate Left breast asymmetry. COMPARISON: 01/19/2025 TECHNIQUE: Digital breast tomosynthesis True lateral view and spot compression MLO views of Left breast with a radiopaque skin marker placed over skin moles and Keloid in the area of concern were obtained. FINDINGS: The breasts are extremely dense, which lowers the sensitivity of mammography. The asymmetry seen in the Superior Left breast on the screening mammogram correlates to a radiopaque skin mole marker. IMPRESSION: Left breast finding represents a Keloid lesion involving the skin. No further investigation necessary. RECOMMENDATION: Annual screening mammography in 12 months BI-RADS 2, BENIGN Reviewed, dictated and finalized at location B. IMPRESSION: Left breast finding represents a Keloid lesion involving the skin. No further i nvestigation necessary. RECOMMENDATION: Annual screening mammography in 12 months BI-RADS 2, BENIGN
== END 2025-03-13 10:28 | disposition home or self-care (01) ==
LOC: CHSIMG 10:31
PROVIDERS: PCP Physician Assistant
DX: N64.89 Other specified disorders of breast (principal)
CPT/HCPCS: 77061; 77065; G0279

== ENCOUNTER 2025-04-19 13:53 | Outpatient (CLI) | payer BC, SELFPAY ==
--- NOTE | ~2025-04-19 | CT_ITS ---
EXAMINATION: CT chest high resolution [facility], 04/19/2025 13:57 SCALLOP SHUCKER HISTORY: shortness of breath COMPARISON: No comparisons available. TECHNIQUE: CT scan of the chest was performed without IV contrast. One or more of the following dose reduction techniques were used: automated exposure control, adjustment of the mA and/or kV according to patient size, use of iterative reconstruction technique. FINDINGS: No significant coronary calcification is present ([id number]) LUNGS: Punctate calcified granulomas. No tracheomalacia bronchiectasis. No significant emphysematous or pulmonary fibrotic changes. HEART AND PERICARDIUM: Within normal limits. AORTA: Normal caliber aorta. ADENOPATHY/MEDIASTINUM: There are calcified mediastinal and hilar lymph nodes. LIMITED VIEWS OF THE ABDOMEN: Within normal limits. OSSEOUS STRUCTURES: No sclerotic or lytic lesions. No acute fracture is identified. OVERLYING SOFT TISSUES: Unremarkable. THYROID: The thyroid is unremarkable. IMPRESSION: Sequelae of previous granulomatous disease detailed above. No significant pulmonary fibrotic changes Reviewed, dictated and finalized at location P. LOP SHUCKER IMPRESSION: Sequelae of previous granulomatous disease detailed above. No significant pulmo nary fibrotic changes
== END 2025-04-19 13:54 | disposition home or self-care (01) ==
LOC: MICIMG 13:54
PROVIDERS: PCP Physician Assistant; Visit Provider Physician Assistant Medical
DX: R06.02 Shortness of breath (principal)
CPT/HCPCS: 71250

== ENCOUNTER 2025-04-27 12:57 | Outpatient (CLI) | payer BC, SELFPAY ==
--- NOTE | 2025-04-30 08:52 | WPDPFTINT ---
PFT Procedure Performed PFT Procedure Performed Plethysmography (Lung Vol) Diffusing Cap (DLCO) Flow Vol Loop Spirometry w/o Bronchodil PFT Interpretation This is a pulmonary function test with spirometry, plethysmography and diffusing capacity. The test was performed and results interpreted in accordance with the 2019 and 2005 ATS/ERS Task Force guidelines respectively using the Global Lung Function Initiative-2012 reference equations. Patient demonstrated good effort and cooperation. Reproducibility criteria were met. The quality of the spirometry maneuver was Grade A. Findings: Spirometry: The contour the inspiratory and expiratory flow tracing are normal. The FVC is 3.03 L, 82% predicted. The FEV1 is 2.51 L, 87% predicted. The FEV1: FVC ratio is 83%. Plethysmography: Total lung capacity is 5.32 L, 93% predicted. The functional residual capacity is 2.96 L, 91% predicted. The residual volume is 2.28 L, 103% predicted. Diffusing capacity: The diffusing capacity unadjusted for hemoglobin and carboxyhemoglobin is 16.9, 72% predicted. The diffusing capacity adjusted for alveolar volume is 3.78, 89% predicted. Impression: The spirometry is normal without evidence of an obstructive abnormality. The lung volumes are normal. The diffusing capacity is normal. There are no prior studies for comparison
== END 2025-04-27 12:58 | disposition home or self-care (01) ==
PROVIDERS: PCP Physician Assistant; Visit Provider Physician Assistant Medical
DX: R06.02 Shortness of breath (principal)
CPT/HCPCS: 94375; 94726; 94729